=== PATIENT | male | born 1965 | race Caucasian/White ===

== ENCOUNTER 2017-12-27 14:13 | Emergency (ER) | payer MEDICARE, MEDICAID ==
[2017-12-27 14:33] VITALS: BP 127/89
--- NOTE | 2017-12-27 14:47 | UC ---
Shoulder Pain HPI - HPI Summary HPI Summary: Pt presents with left biceps/shoulder pain intermittently for the last week. He tells me that he has a history of bursitis and this feels the same. When it hurts, he takes ibuprofen with good relief. Denies numbness, tingling, SOB, chest pain, headache, dizziness, or trauma. - History of Current Complaint Chief Complaint: UCUpperExtremity Stated Complaint: SHOULDER PAIN Time Seen by Provider: 12/27/17 14:39 Hx Obtained From: Patient Onset/Duration: Gradual Onset Timing: Intermittent Episode Lasting Severity Initially: Mild Severity Currently: None Pain Intensity: 2 Pain Scale Used: 0-10 Numeric Character: Aching Alleviating Factor(s): Rest, OTC Meds Associated Signs And Symptoms: Positive: Negative - Allergies/Home Medications Allergies/Adverse Reactions: Allergies Allergy/AdvReac Type Severity Reaction Status Date / Time fluphenazine [From Prolixin] Allergy Rash Verified 12/27/17 14:20 Home Medications: Home Medications Lurasidone(*) [Latuda] 80 mg PO DAILY 12/27/17 [History Confirmed 12/27/17] Naltrexone TAB* 50 mg PO DAILY 12/27/17 [History Confirmed 12/27/17] PMH/Surg Hx/FS Hx/Imm Hx Endocrine History: Diabetes Psychological History: Anxiety, Depression, Schizophrenia Other History Of: Negative For: Anticoagulant Therapy - Surgical History Surgical History: Yes Surgery Procedure, Year, and Place: COLON POLYPS REMOVED - Family History Known Family History: Positive: None - pt denies problems with heart, lungs, or joints in relatives - Social History Lives: Alone Alcohol Use: Daily Alcohol Amount: 6 drinks/ day Substance Use Type: Marijuana Substance Use Comment - Amount & Last Used: 1/2 joint daily Smoking Status (MU): Never Smoked Tobacco - Immunization History Most Recent Influenza Vaccination: 2014 Most Recent Tetanus Shot: unknown Most Recent Pneumonia Vaccination: never Review of Systems Constitutional: Negative Skin: Negative Respiratory: Negative Cardiovascular: Negative Gastrointestinal: Negative Neurovascular: Negative Musculoskeletal: Other: - Left shoulder pain Neurological: Negative Psychological: Negative All Other Systems Reviewed And Are Negative: Yes Physical Exam - Summary Physical Exam Summary: GENERAL: NAD. WDWN. No pain distress. SKIN: No rashes, sores, ulcers, masses, lesions. NECK: Supple. Nontender. No lymphadenopathy. CHEST: CTAB. No r/r/w. No accessory muscle use. Breathing comfortably and in no distress. CV: RRR. Without m/r/g. Pulses intact radial and ulnar. MSK: Mild TTP over AC joint and bicipital groove. 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 No edema or obvious bony deformities. No snuffbox tenderness. FROM. Strength 5/5. No edema or obvious bony deformities. Positive yergason. Negative apleys, apprehension, empty can, alvarenga-tatiana, neer, and ramos. NEURO: Alert. Sensations intact C4-T1 left UE. PSYCH: Age appropriate behavior. Triage Information Reviewed: Yes Vital Signs: Initial Vital Signs Temp 98.1 F 12/27/17 14:27 Pulse 83 12/27/17 14:27 Resp 18 12/27/17 14:27 BP 127/89 12/27/17 14:27 Pulse Ox 99 12/27/17 14:27 Shoulder Course/Dx - Course Course Of Treatment: XR: IMPRESSION: Mild osteoarthritis. Small inferior acromial bone spur. Suspect biceps tendon strain vs arthritis. He is requesting a referral to ortho for potential cortisone injection. Advised RICE and continue with ibuprofen prn. - Differential Dx/Diagnosis Provider Diagnoses: Left shoulder strain Discharge - Sign-Out/Discharge Documenting (check all that apply): Discharge - Discharge Plan Condition: Stable Disposition: HOME Patient Education Materials: Shoulder Pain (ED) Referrals: Razia Arzate MD [Primary Care Provider] - Truman Yost MD [Medical Doctor] - As Soon As Possible Additional Instructions: If you develop a fever, shortness of breath, chest pain, new or worsening symptoms - please call your PCP or go to the ED. 1) Please call Orthopedics at the number below to schedule a follow up appointment regarding your shoulder pain. - Billing Disposition and Condition Condition: STABLE Disposition: HOME
--- NOTE | 2017-12-27 15:16 | RAD ---
Indication: 1 week LEFT shoulder pain without known injury. History of bursitis Comparison: April 16, 2014 Technique: Internal rotation AP, external rotation Grashey, scapular Y, axillary views LEFT shoulder Report: Normal acromioclavicular and glenohumeral joint alignment. Negative for fracture. Mild subchondral sclerosis and cystic change at the acromioclavicular joint with interval further joint space loss. Small inferolateral acromial bone spur without change. Mild glenohumeral joint space narrowing. Negative for significant glenohumeral joint osteophytosis. Negative for stigmata of calcific tendinopathy. Unremarkable soft tissue contours. IMPRESSION: Mild osteoarthritis. Small inferior acromial bone spur.
== END 2017-12-27 15:30 | disposition home or self-care (01) ==
LOC: UCEAST 14:13
DX: S46.912A Strain of unspecified muscle, fascia and tendon at shoulder and upper arm level, left arm, initial encounter (principal); X58.XXXA Exposure to other specified factors, initial encounter; Y93.9 Activity, unspecified; Y92.9 Unspecified place or not applicable; E11.9 Type 2 diabetes mellitus without complications; Z79.84 Long term (current) use of oral hypoglycemic drugs; F32.9 Major depressive disorder, single episode, unspecified; F41.9 Anxiety disorder, unspecified; F20.9 Schizophrenia, unspecified; Z88.8 Allergy status to other drugs, medicaments and biological substances
CPT/HCPCS: 99211; G0463

== ENCOUNTER 2019-01-22 09:29 | Emergency (ER) | payer MEDICARE, OTHER, MEDICAID ==
[2019-01-22 09:39] VITALS: BP 140/85
--- NOTE | 2019-01-22 10:47 | UC ---
Back Pain HPI - HPI Summary HPI Summary: 53 yo male presents with low back pain. He tells me that yesterday he was out for a walk and started developing some low back pain during his walk. He turned around and went back home and rested the remainder of yesterday. Today he woke up and his lower back was stiff and more painful than yesterday. He has not taken anything OTC for his symptoms. Pain is worse with going from a seated to standing position. Pain worse with bending/lifting. Feels better at rest seated. Denies specific injury, numbness, tingling, radiation of pain, dysuria, saddle anesthesia, or loss of bowel/bladder control. - History of Current Complaint Chief Complaint: UCBackPain Stated Complaint: BACK PAIN Time Seen by Provider: 01/22/19 10:46 Hx Obtained From: Patient Onset/Duration: Sudden Onset Timing: Constant Severity Initially: Mild Severity Currently: Moderate Pain Intensity: 7 Pain Scale Used: 0-10 Numeric - Allergies/Home Medications Allergies/Adverse Reactions: Allergies Allergy/AdvReac Type Severity Reaction Status Date / Time fluphenazine [From Prolixin] Allergy Rash Verified 01/22/19 09:39 PMH/Surg Hx/FS Hx/Imm Hx Psychological History: Anxiety, Depression, Bipolar Disorder, Schizophrenia Other History Of: Negative For: Anticoagulant Therapy - Surgical History Surgical History: Yes Surgery Procedure, Year, and Place: COLON POLYPS REMOVED - Family History Known Family History: Positive: None - pt denies problems with heart, lungs, or joints in relatives - Social History Lives: Alone Alcohol Use: Occasionally Alcohol Amount: 6 drinks/ day Substance Use Type: Marijuana Substance Use Comment - Amount & Last Used: 1/2 joint daily Smoking Status (MU): Never Smoked Tobacco - Immunization History Most Recent Influenza Vaccination: 2014 Most Recent Tetanus Shot: unknown Most Recent Pneumonia Vaccination: never Review of Systems All Other Systems Reviewed And Are Negative: Yes Constitutional: Positive: Negative Skin: Positive: Negative Respiratory: Positive: Negative Cardiovascular: Positive: Negative Gastrointestinal: Positive: Negative Genitourinary: Positive: Negative Neurovascular: Positive: Negative Musculoskeletal: Positive: Other: - Low back pain Neurological: Positive: Negative Psychological: Positive: Negative Physical Exam - Summary Physical Exam Summary: GENERAL: NAD. WDWN. No pain distress. SKIN: No rashes, sores, lesions, or open wounds. NECK: Supple. FROM. Nontender. CHEST: CTAB. No r/r/w. No accessory muscle use. Breathing comfortably and in no distress. CV: RRR. Without m/r/g. Pulses intact. Cap refill <2seconds MSK: TTP over lumbar paraspinal muscles. Pain with flexion and extension of spine. Positive SLR on RIGHT for low back pain without radiation. Strength 5/5 B /L LEs including dorsiflexion and plantar flexion. FROM B/L LEs. No edema. NEURO: Alert. Sensations intact B/L LEs L3-S1. Reflexes intact PSYCH: Age appropriate behavior. Triage Information Reviewed: Yes Vital Signs: Initial Vital Signs Temp 97.3 F 01/22/19 09:35 Pulse 72 01/22/19 09:35 Resp 16 01/22/19 09:35 BP 140/85 01/22/19 09:35 Pulse Ox 100 01/22/19 09:35 Vital Signs Reviewed: Yes Back Pain Course/Dx - Course Course Of Treatment: Suspect muscle strain/sciatica. Pt says he has had this in the past and was prescribed prednisone with great relief. Will rx for this again today. - Differential Dx/Diagnosis Provider Diagnosis: Sciatica Discharge - Sign-Out/Discharge Documenting (check all that apply): Patient Departure All imaging exams completed and their final reports reviewed: No Studies - Discharge Plan Condition: Stable Disposition: HOME Prescriptions: predniSONE TAB* [Deltasone 20 MG TAB*] 40 mg PO DAILY #12 tab Patient Education Materials: Sciatica (ED), Lower Back Exercises (ED) Referrals: No Primary Care Phys,NOPCP [Primary Care Provider] - Additional Instructions: If you develop a fever, shortness of breath, chest pain, new or worsening symptoms - please call your PCP or go to the ED. Your blood pressure was high at todays visit. Please see your primary provider within 4 weeks for recheck and re-evaluation. Rest and apply heat to your area of pain. May take tylenol as directed in addition to the prednisone for pain relief - Billing Disposition and Condition Condition: STABLE Disposition: Home
== END 2019-01-22 11:20 | disposition home or self-care (01) ==
LOC: UCEAST 09:29
DX: M54.41 Lumbago with sciatica, right side (principal); F41.9 Anxiety disorder, unspecified; F31.9 Bipolar disorder, unspecified; F20.9 Schizophrenia, unspecified; Z88.8 Allergy status to other drugs, medicaments and biological substances
CPT/HCPCS: 99212; G0463

== ENCOUNTER 2019-02-04 10:33 | Emergency (ER) | payer MEDICARE, MEDICAID ==
[2019-02-04 11:07] VITALS: BP 140/80
--- NOTE | 2019-02-04 12:14 | UC ---
Back Pain HPI - HPI Summary HPI Summary: PATIENT DEVELOPED LOW BACK PAIN ABOUT 2 WEEKS AGO WHILE OUT FOR A WALK. NO DISCRETE TRAUMA OR INJURY. CAME HERE TO THE AND WAS TREATED WITH PREDNISONE. STATES THE SYMPTOMS HAVE IMPROVED GREATLY BUT HE STILL HAS ABOUT 20 % OF HIS PAIN. NO NUMBNESS OR TINGLING OR NEW INJURY. DENIES ANY SADDLE ANESTHESIA. NO LOSS OF BOWEL OR BLADDER CONTROL. - History of Current Complaint Chief Complaint: UCBackPain Stated Complaint: BACK PAIN Time Seen by Provider: 02/04/19 11:42 Hx Obtained From: Patient Onset/Duration: Gradual Onset, Lasting Weeks, Still Present - BUT MUCH BETTER Timing: Constant Severity Initially: Moderate Severity Currently: Mild Pain Intensity: 1 Pain Scale Used: 0-10 Numeric Character: Sharp, Spasmodic Aggravating Factor(s): Movement, Bending Associated Signs And Symptoms: Negative: Swelling, Redness, Bruising, Weakness, Numbness, Tingling, Bladder Incontinence, Bowel Incontinence - Allergies/Home Medications Allergies/Adverse Reactions: Allergies Allergy/AdvReac Type Severity Reaction Status Date / Time fluphenazine [From Prolixin] Allergy Rash Verified 01/22/19 09:39 PMH/Surg Hx/FS Hx/Imm Hx Other Psychological History: SCHIZOAFFECTIVE D/O Other History Of: Negative For: Anticoagulant Therapy - Surgical History Surgical History: Yes Surgery Procedure, Year, and Place: COLON POLYPS REMOVED - Family History Known Family History: Positive: None - pt denies problems with heart, lungs, or joints in relatives - Social History Alcohol Use: Occasionally Alcohol Amount: 6 drinks/ day Substance Use Type: Marijuana Substance Use Comment - Amount & Last Used: 1/2 joint daily Smoking Status (MU): Never Smoked Tobacco - Immunization History Most Recent Influenza Vaccination: 2014 Most Recent Tetanus Shot: unknown Most Recent Pneumonia Vaccination: never Review of Systems All Other Systems Reviewed And Are Negative: Yes Constitutional: Positive: Negative Skin: Positive: Negative Respiratory: Positive: Negative Cardiovascular: Positive: Negative Gastrointestinal: Positive: Negative Physical Exam Triage Information Reviewed: Yes Appearance: Well-Appearing, No Pain Distress, Well-Nourished Vital Signs: Initial Vital Signs Temp 98.2 F 02/04/19 11:01 Pulse 65 02/04/19 11:01 Resp 18 02/04/19 11:01 BP 140/80 02/04/19 11:01 Pulse Ox 98 02/04/19 11:01 Vital Signs Reviewed: Yes Eyes: Positive: Conjunctiva Clear ENT: Positive: Hearing grossly normal Neck: Positive: Supple Respiratory: Positive: No respiratory distress, No accessory muscle use Cardiovascular: Positive: Pulses Normal Abdomen Description: Positive: Soft Musculoskeletal: Positive: No Edema, ROM Limited @ - BACK, Other: - NOT TENDER OVER BONY PROMINENCES OR MUSCLES OF LOW BACK Neurological: Positive: Alert, Muscle Tone Normal Psychological: Positive: Age Appropriate Behavior Skin: Negative: Rashes Back Pain Course/Dx - Course Course Of Treatment: PATIENT'S SYMPTOMS HAVE IMPROVED SINCE ONSET 2 WEEKS AGO. HE CAME IN FOR REEVALUATION STATING THAT HE WAS NOT ALL THE WAY BETTER. I ADVISED THE PATIENT THAT HIS PAIN WOULD LIKELY CONTINUE TO IMPROVE OVER THE NEXT SEVERAL WEEKS HOWEVER HE WOULD LIKE SOME ADDITIONAL MEDICATION. WILL TRY A MUSCLE RELAXER. DISCUSSED WITH PATIENT IN DETAIL THE RISKS OF LOWERED SEIZURE THRESHOLD WITH FLEXERIL AND BUPROPION. ALSO DISCUSSED ADDITIVE SEDATING EFFECTS OF FLEXERIL WITH HIS LATUDA. PATIENT WISHES TO TRY A MUSCLE RELAXER AND ACCEPTS THESE RISKS. HE WILL FOLLOW-UP WITH [facility]. PHYSICAL THERAPY REFERRAL ALSO PROVIDED FOR PATIENT TO USE IF DESIRED. - Differential Dx/Diagnosis Provider Diagnosis: Acute low back pain Discharge - Sign-Out/Discharge Documenting (check all that apply): Patient Departure All imaging exams completed and their final reports reviewed: No Studies - Discharge Plan Condition: Stable Disposition: HOME Prescriptions: Cyclobenzaprine TAB* [Flexeril TAB*] 10 mg PO BID PRN #20 tab PRN Reason: Pain Patient Education Materials: Low Back Strain (ED) Referrals: [facility] [Outside] - 1 Week Additional Instructions: YOUR BACK PAIN SHOULD CONTINUE TO IMPROVE OVER THE NEXT FEW WEEKS WITH CONTINUED REST, STRETCHING, HEAT AND ANTI-INFLAMMATORY MEDICATION. WILL TRY A MUSCLE RELAXER TO SEE IF THIS HELPS WITH YOUR SYMPTOMS. WE DISCUSSED IT CAN INTERACT WITH BOTH YOUR LATUDA AND YOUR BUPROPION. IT CAN BE OVERLY SEDATING AND LOWER THE SEIZURE THRESHOLD. BE VIGILANT OF YOUR SYMPTOMS. PHYSICAL THERAPY REFERRAL PROVIDED TODAY. YOU USE IF YOUR SYMPTOMS DO NOT CONTINUE TO IMPROVE OVER THE NEXT FEW WEEKS. BE SURE TO GO THROUGH SLOW RANGE OF MOTION AND STRETCHING EXERCISES DAILY YOU ARE ABLE TO PREVENT STIFFENING UP AND MAKING THE DISCOMFORT WORSE. CALL THE NUMBER BELOW FOR ASSISTANCE IN ESTABLISHING WITH A PCP An additional resource available to assist in finding the appropriate physician for your health care needs is [facility] ([place]). You may contact them by calling [phone]. - Billing Disposition and Condition Condition: STABLE Disposition: Home
== END 2019-02-04 12:14 | disposition home or self-care (01) ==
LOC: UCEAST 10:33
DX: M54.5 Low back pain (principal); F25.9 Schizoaffective disorder, unspecified; Z88.8 Allergy status to other drugs, medicaments and biological substances
CPT/HCPCS: 99212; G0463

== ENCOUNTER 2019-03-23 12:39 | Observation (INO) | payer MEDICARE, MEDICAID ==
[2019-03-23] MEDS ORDERED: Thiamine IV* 100 MG, Folic Acid IV* 1 MG, Multiple Vitamin IV ADULT* 10 ML in NS 0.9% 1... IV ONE (13:35)
[2019-03-23 13:55] LABS: ABS Lymphocytes 0.5 10^3/ul (1.0-4.8); ABS Monocytes 0.5 10^3/ul (0-0.8); ABS Neutrophils 3.9 10^3/ul (1.5-7.7); Eosinophil % 0.1 %; Hematocrit 38 % (42-52); Hemoglobin 12.9 g/dL (14.0-18.0); Lymphocyte % 9.7 %; Mean Corpuscular HGB Conc 34 g/dL (31-36); Mean Corpuscular Hemoglobin 32 pg (27-31); Mean Corpuscular Volume 94 fL (80-94); Mean Platelet Volume 8.2 fL (7.4-10.4); Platelet Count 137 10^3/uL (150-450); Red Blood Count 3.98 10^6 /uL (4.18-5.48); Red Cell Distribution Width 15 % (10-15); White Blood Count 4.8 10^3/uL (3.5-10.8)
[2019-03-23 14:01] LABS: INR 0.94 (0.82-1.09)
[2019-03-23 14:12] LABS: Albumin 4.4 g/dL (3.2-5.2); Albumin/Globulin Ratio 1.8 (1-3); BUN/Creatinine Ratio 13.3 (8-20); C Reactive Protein 13.02 mg/L (<8.01); Calcium 9.7 mg/dL (8.6-10.3); EGFR African American 117.7 (>60); EGFR Non-African American 97.3 (>60); Globulin 2.4 g/dL (2-4); Potassium 3.8 mmol/L (3.5-5.0); Total Protein 6.8 g/dL (6.4-8.9)
[2019-03-23 14:43] LABS: Urine Appearance Clear; Urine Bacteria Absent (Absent); Urine Bilirubin Negative (Negative); Urine Blood 1+ (Negative); Urine Color Amber; Urine Glucose Negative (Negative); Urine Ketones 2+ (Negative); Urine Nitrite Negative (Negative); Urine Protein 1+(30 mg/dL) (Negative); Urine Red Blood Cell Trace(0-2/hpf) (Absent); Urine Specific Gravity 1.023 (1.010-1.030); Urine Squamous Epithelial Cell Present (Absent); Urine Urobilinogen Positive (Negative); Urine White Blood Cell Absent (Absent)
[2019-03-23 14:53] LABS: Urine Benzodiazepine Screen None Detected (None Detect); Urine Opiates Screen None Detected (None Detect)
[2019-03-23] MEDS ORDERED: Lorazepam PYXIS KEY PRN ×2 (15:36→16:50)
[2019-03-23] MEDS ORDERED: LORazepam INJ* 2 MG/ML 1 ML VIAL IV PUSH ONE (15:36)
[2019-03-23] MEDS ORDERED: LORazepam INJ* 2 MG/ML 1 ML VIAL ONE (15:37)
--- NOTE | 2019-03-23 16:45 | ED ---
Substance Abuse/Use - HPI Summary HPI Summary: Patient is a 53-year-old who called male presenting to the ED with request for alcohol detox. He states he drinks approximately 1 L vodka or whiskey daily. This began approximately 1 month ago. Prior to this, he states he still drink daily, however less. He states he has never had a seizure. Patient does endorse psych hx and states he has schizophrenia. Denies SI/HI. States he is on buproprion and Latuda - is prescribed this and fills these scripts but does not take them. He is requesting a his mental health counselor but does not feel he needs to be evaluated. Denies any drug use. - History Of Current Complaint Chief Complaint: EDSubstanceAbuse Stated Complaint: DETOX FROM ALCOHOL PER EMS Time Seen by Provider: 03/23/19 12:47 Hx Obtained From: Patient Onset/Duration of Drug/ETOH Abuse: Hours Ingestion History: Type/Name Of Drug Overdose Characteristics: Oral Timing Of Abuse: Daily Severity Initially: Severe Severity Currently: Severe Aggravating Factor(s): Nothing Alleviating Factor(s): Nothing Associated Signs And Symptoms: Negative - Allergies/Home Medications Allergies/Adverse Reactions: Allergies Allergy/AdvReac Type Severity Reaction Status Date / Time fluphenazine [From Prolixin] Allergy Rash Verified 01/22/19 09:39 Home Medications: Home Medications Acamprosate (NF) [Campral (NF)] 666 mg PO DAILY 03/23/19 [History Confirmed ] Escitalopram * [Lexapro 10 mg (NF)] 10 mg PO DAILY 03/23/19 [History Confirmed 03/23/19] PMH/Surg Hx/FS Hx/Imm Hx Previously Healthy: Yes Endocrine/Hematology History: Denies: Hx Anticoagulant Therapy, Hx Diabetes, Hx Thyroid Disease Cardiovascular History: Denies: Hx Hypertension Respiratory History: Denies: Hx Asthma, Hx Chronic Obstructive Pulmonary Disease (COPD) GI History: Denies: Hx Ulcer Musculoskeletal History: Reports: Hx Tendonitis - Left shoulder Psychiatric History: Reports: Hx Inpatient Treatment, Hx Community Mental Health Tx, Hx Schizophrenia, Hx Bipolar Disorder, Hx Substance Abuse Denies: Hx Eating Disorder, Hx of Violent Episodes Against Others - Surgical History Surgery Procedure, Year, and Place: COLON POLYPS REMOVED - Immunization History Hx Pertussis Vaccination: No Immunizations Up to Date: Yes Infectious Disease History: No Infectious Disease History: Reports: Hx Shingles Denies: Hx Hepatitis, Hx Human Immunodeficiency Virus (HIV), Hx of Known/ Suspected MRSA, Hx Tuberculosis, Hx Known/Suspected VRSA, Traveled Outside the [place] in Last 30 Days - Family History Known Family History: Positive: None - pt denies problems with heart, lungs, or joints in relatives - Social History Occupation: Employed Full-time Lives: With Family Alcohol Use: Daily Alcohol Amount: 1L whiskey a day Hx Substance Use: No Substance Use Type: Reports: Marijuana Substance Use Comment - Amount & Last Used: 1/2 joint daily Hx Tobacco Use: No Smoking Status (MU): Never Smoked Tobacco Review of Systems Negative: Fever, Chills, Fatigue, Skin Diaphoresis Negative: Palpitations, Chest Pain Negative: Shortness Of Breath, Cough Genitourinary: Negative Positive: no symptoms reported, see HPI Negative: Arthralgia, Myalgia Skin: Negative All Other Systems Reviewed And Are Negative: Yes Physical Exam Triage Information Reviewed: Yes Vital Signs On Initial Exam: Initial Vitals Temp Pulse Resp BP Pulse Ox 99.1 F 84 18 160/97 99 03/23/19 12:49 03/23/19 12:49 03/23/19 12:49 03/23/19 12:49 03/23/19 12:49 Vital Signs Reviewed: Yes Appearance: Positive: No Pain Distress Skin: Positive: Other - erythatmous Head/Face: Positive: Normal Head/Face Inspection Eyes: Positive: Other: - scleral icterus Neck: Positive: No Lymphadenopathy Respiratory/Lung Sounds: Positive: Clear to Auscultation, Breath Sounds Present Cardiovascular: Positive: RRR Musculoskeletal: Positive: Strength/ROM Intact Neurological: Positive: Sensory/Motor Intact, Alert, Oriented to Person Place, Time, CN Intact II-III, Reflexes Intact, Slurred Speech Psychiatric: Positive: Other - patient appears slightly anxious without agitation AVPU Assessment: Alert - Miguel Coma Scale Best Eye Response: 4 - Spontaneous Best Motor Response: 6 - Obeys Commands Best Verbal Response: 5 - Oriented Coma Scale Total: 15 Diagnostics - Vital Signs Vital Signs Temp Pulse Resp BP Pulse Ox 03/23/19 15:40 16 03/23/19 15:14 99.6 F 90 20 121/70 100 03/23/19 14:28 99.4 F 86 13 141/91 100 03/23/19 14:00 77 20 144/83 100 03/23/19 12:49 99.1 F 84 18 160/97 99 - Laboratory Lab Results: Lab Results 03/23/19 03/23/19 03/23/19 Range/Units 13:38 13:38 13:38 WBC 4.8 (3.5-10.8) 10^3/uL RBC 3.98 L (4.18-5.48) 10^6 /uL Hgb 12.9 L (14.0-18.0) g/dL Hct 38 L (42-52) % MCV 94 (80-94) fL MCH 32 H (27-31) pg MCHC 34 (31-36) g/dL RDW 15 (10-15) % Plt Count 137 L (150-450) 10^3/uL MPV 8.2 (7.4-10.4) fL Neut % (Auto) 79.8 % Lymph % (Auto) 9.7 % [place] % (Auto) 9.8 % Eos % (Auto) 0.1 % Baso % (Auto) 0.6 % Absolute Neuts (auto) 3.9 (1.5-7.7) 10^3/ul Absolute Lymphs (auto) 0.5 L (1.0-4.8) 10^3/ul Absolute Monos (auto) 0.5 (0-0.8) 10^3/ul Absolute Eos (auto) 0.0 (0-0.6) 10^3/ul Absolute Basos (auto) 0.0 (0-0.2) 10^3/ul Absolute Nucleated RBC 0.0 10^3/ul Nucleated RBC % 0.0 INR (Anticoag Therapy) 0.94 (0.82-1.09) Sodium (135-145) mmol/L Potassium (3.5-5.0) mmol/L Chloride (101-111) mmol/L Carbon Dioxide (22-32) mmol/L Anion Gap (2-11) mmol/L BUN (6-24) mg/dL Creatinine (0.67-1.17) mg/dL Est GFR ( Amer) (>60) Est GFR (Non-Af Amer) (>60) BUN/Creatinine Ratio (8-20) Glucose (70-100) mg/dL Calcium (8.6-10.3) mg/dL Total Bilirubin (0.2-1.0) mg/dL GGT (9-64.0) U/L AST (13-39) U/L ALT (7-52) U/L Alkaline Phosphatase (34-104) U/L Ammonia (16-53) mcmol/L Total Creatine Kinase (10-223) U/L C-Reactive Protein (<8.01) mg/L Total Protein (6.4-8.9) g/dL Albumin (3.2-5.2) g/dL Globulin (2-4) g/dL Albumin/Globulin Ratio (1-3) Urine Color Urine Appearance Urine pH (5-9) Ur Specific [place] (1.010-1.030) Urine Protein (Negative) Urine Ketones (Negative) Urine Blood (Negative) Urine Nitrate (Negative) Urine Bilirubin (Negative) Urine Urobilinogen (Negative) Ur Leukocyte Esterase (Negative) Urine WBC (Auto) (Absent) Urine RBC (Auto) (Absent) Ur Squamous Epith Cells (Absent) Urine Bacteria (Absent) Urine Glucose (Negative) Urine Opiates Screen (None Detect) Ur Barbiturates Screen (None Detect) Ur Phencyclidine Scrn (None Detect) Ur Amphetamines Screen (None Detect) U Benzodiazepines Scrn (None Detect) Urine Cocaine Screen (None Detect) U Cannabinoids Screen (None Detect) Serum Alcohol < 10 (<10) mg/dL 03/23/19 03/23/19 03/23/19 Range/Units 13:38 14:10 14:10 WBC (3.5-10.8) 10^3/uL RBC (4.18-5.48) 10^6 /uL Hgb (14.0-18.0) g/dL Hct (42-52) % MCV (80-94) fL MCH (27-31) pg MCHC (31-36) g/dL RDW (10-15) % Plt Count (150-450) 10^3/uL MPV (7.4-10.4) fL Neut % (Auto) % Lymph % (Auto) % [place] % (Auto) % Eos % (Auto) % Baso % (Auto) % Absolute Neuts (auto) (1.5-7.7) 10^3/ul Absolute Lymphs (auto) (1.0-4.8) 10^3/ul Absolute Monos (auto) (0-0.8) 10^3/ul Absolute Eos (auto) (0-0.6) 10^3/ul Absolute Basos (auto) (0-0.2) 10^3/ul Absolute Nucleated RBC 10^3/ul Nucleated RBC % INR (Anticoag Therapy) (0.82-1.09) Sodium 136 (135-145) mmol/L Potassium 3.8 (3.5-5.0) mmol/L Chloride 96 L (101-111) mmol/L Carbon Dioxide 24 (22-32) mmol/L Anion Gap 16 H (2-11) mmol/L BUN 11 (6-24) mg/dL Creatinine 0.83 (0.67-1.17) mg/dL Est GFR ( Amer) 117.7 (>60) Est GFR (Non-Af Amer) 97.3 (>60) BUN/Creatinine Ratio 13.3 (8-20) Glucose 95 (70-100) mg/dL Calcium 9.7 (8.6-10.3) mg/dL Total Bilirubin 2.00 H (0.2-1.0) mg/dL GGT (9-64.0) U/L AST 278 H (13-39) U/L ALT 236 H (7-52) U/L Alkaline Phosphatase 71 (34-104) U/L Ammonia (16-53) mcmol/L Total Creatine Kinase 692 H (10-223) U/L C-Reactive Protein 13.02 H (<8.01) mg/L Total Protein 6.8 (6.4-8.9) g/dL Albumin 4.4 (3.2-5.2) g/dL Globulin 2.4 (2-4) g/dL Albumin/Globulin Ratio 1.8 (1-3) Urine Color Mai Urine Appearance Clear Urine pH 6.0 (5-9) Ur Specific [place] 1.023 (1.010-1.030) Urine Protein 1+(30 mg/dl) A (Negative) Urine Ketones 2+ A (Negative) Urine Blood 1+ A (Negative) Urine Nitrate Negative (Negative) Urine Bilirubin Negative (Negative) Urine Urobilinogen Positive A (Negative) Ur Leukocyte Esterase Negative (Negative) Urine WBC (Auto) Absent (Absent) Urine RBC (Auto) Trace(0-2/hpf) (Absent) Ur Squamous Epith Cells Present A (Absent) Urine Bacteria Absent (Absent) Urine Glucose Negative (Negative) Urine Opiates Screen None detected (None Detect) Ur Barbiturates Screen None detected (None Detect) Ur Phencyclidine Scrn None detected (None Detect) Ur Amphetamines Screen None detected (None Detect) U Benzodiazepines Scrn None detected (None Detect) Urine Cocaine Screen None detected (None Detect) U Cannabinoids Screen Presumptive positive A (None Detect) Serum Alcohol (<10) mg/dL 03/23/19 03/23/19 Range/Units 14:31 14:31 WBC (3.5-10.8) 10^3/uL RBC (4.18-5.48) 10^6 /uL Hgb (14.0-18.0) g/dL Hct (42-52) % MCV (80-94) fL MCH (27-31) pg MCHC (31-36) g/dL RDW (10-15) % Plt Count (150-450) 10^3/uL MPV (7.4-10.4) fL Neut % (Auto) % Lymph % (Auto) % [place] % (Auto) % Eos % (Auto) % Baso % (Auto) % Absolute Neuts (auto) (1.5-7.7) 10^3/ul Absolute Lymphs (auto) (1.0-4.8) 10^3/ul Absolute Monos (auto) (0-0.8) 10^3/ul Absolute Eos (auto) (0-0.6) 10^3/ul Absolute Basos (auto) (0-0.2) 10^3/ul Absolute Nucleated RBC 10^3/ul Nucleated RBC % INR (Anticoag Therapy) (0.82-1.09) Sodium (135-145) mmol/L Potassium (3.5-5.0) mmol/L Chloride (101-111) mmol/L Carbon Dioxide (22-32) mmol/L Anion Gap (2-11) mmol/L BUN (6-24) mg/dL Creatinine (0.67-1.17) mg/dL Est GFR ( Amer) (>60) Est GFR (Non-Af Amer) (>60) BUN/Creatinine Ratio (8-20) Glucose (70-100) mg/dL Calcium (8.6-10.3) mg/dL Total Bilirubin (0.2-1.0) mg/dL GGT 332 H (9-64.0) U/L AST (13-39) U/L ALT (7-52) U/L Alkaline Phosphatase (34-104) U/L Ammonia 45 (16-53) mcmol/L Total Creatine Kinase (10-223) U/L C-Reactive Protein (<8.01) mg/L Total Protein (6.4-8.9) g/dL Albumin (3.2-5.2) g/dL Globulin (2-4) g/dL Albumin/Globulin Ratio (1-3) Urine Color Urine Appearance Urine pH (5-9) Ur Specific [place] (1.010-1.030) Urine Protein (Negative) Urine Ketones (Negative) Urine Blood (Negative) Urine Nitrate (Negative) Urine Bilirubin (Negative) Urine Urobilinogen (Negative) Ur Leukocyte Esterase (Negative) Urine WBC (Auto) (Absent) Urine RBC (Auto) (Absent) Ur Squamous Epith Cells (Absent) Urine Bacteria (Absent) Urine Glucose (Negative) Urine Opiates Screen (None Detect) Ur Barbiturates Screen (None Detect) Ur Phencyclidine Scrn (None Detect) Ur Amphetamines Screen (None Detect) U Benzodiazepines Scrn (None Detect) Urine Cocaine Screen (None Detect) U Cannabinoids Screen (None Detect) Serum Alcohol (<10) mg/dL Result Diagrams: 03/23/19 13:38 03/23/19 13:38 Lab Statement: Any lab studies that have been ordered have been reviewed, and results considered in the medical decision making process. Re-Evaluation - Re-Evaluation First Eval Change: Unchanged - re-evaluation shows no changes - continues to have tremor, awaiting alcohol level Second Eval Change: Worse - seizure - patient moved to room 14 and given 2mg ativan wam protocol intitiated Third Eval Change: Improved - improving - still post-ictal Course/Dx - Course Course Of Treatment: During the course of treatment, the patient is evaluated for alcohol intoxication. Patient states he last drink this morning and drink 1 L vodka. He arrives he would like alcohol detox as he does not feel well. Temp is 99.1, heart rate 84, respirations 18, 160/97. He has bilateral tremors at rest, but states this is normal for him whether he drinks or not, however they are worse when he does not drink. He states he has been several hours since his last drink but he does not recall when. Stating, sometime this morning. States he has never had a seizure and never had Ativan or other medications to help him through withdrawal. After approximately 3 hours in the ED, patient continues to appear well, with bilateral tremors and is talking with friends. CIWA score on arrival is 8. While talking with a friend, patient begins to seize. Friend witnessed, nurse immediately at bedisde and provider followed. 2mg ativan given and patient is rolled to his side. He was tx to room 14 and wam and monitoring provided. Discussed with Dr. Watts who accepts to ICU for further evalution and tx for alcohol withdrawal. Bleeding from the mouth s/p seizure but no evidence of a laceration on exam. Patient remains confused and post-ictal. - Diagnoses Differential Diagnosis/HQI/PQRI: Positive: Acute Psychosis, Alcohol Withdrawal, Anxiety, Delirium Tremens, Drug Withdrawal, Metabolic Disorder Provider Diagnoses: Alcohol withdrawal - Physician Notifications Discussed Care Of Patient With: Steve Watts Instructed by Provider To: Admit As Inpatient - Critical Care Time Critical Care Time: 30-74 min Discharge - Sign-Out/Discharge Documenting (check all that apply): Patient Departure Patient Received Moderate/Deep Sedation with Procedure: No - Discharge Plan Condition: Fair Disposition: ADMITTED TO [facility] Referrals: No Primary Care Phys,NOPCP [Primary Care Provider] - - Billing Disposition and Condition Condition: FAIR Disposition: Admitted to [facility]
[2019-03-23] MEDS ORDERED: LORazepam INJ* 2 MG/ML 1 ML VIAL IV PUSH PRN (16:50)
[2019-03-23] MEDS ORDERED: Diazepam TAB(*) 5 MG PO ONE ×2 (16:50→17:48)
[2019-03-23] MEDS ORDERED: Albuterol 2.5 MG/3 ML NEB.SOL* (0.083%) INH PRN (17:03)
[2019-03-23 17:08] LABS: Hepatitis B Surface Antigen Negative (Negative)
--- NOTE | 2019-03-23 17:16 | HP ---
H&P (Free Text) History and Physical: History and Physical Note -- Critical Care Limitations in history/physical: post ictal from seizure HPI: 53y M w/pmhx of Schizoaffective disorder, bipolar disorder, substance abuse with alcohol?, h/o lower GI bleed 2016 with clipping; comes to ER because he stated he needed detoxing. Patient was in outpatient area and started to have a seizure, brought into the main ER, given Ativan with cessation of seizure. Vitals remained intact. Currently patient awake now, answering questions, slight confusion, moving all ext, not restless or agitated. No distress noted. He denies cp/sob/n/v/abd pain, no diarrhea, no fever/chills. States that he drinks a bottle a day, last drink was yesterday afternoon. ER told me he stated to them his last drink was 1 hour prior to ER arrival. Alcohol level zero on lab work. He is moving all extremities, no tremulousness noted, speaking in straight sentences. denies any previous seizure history. no history of DM/thyroid issues, told to take metformin in psych clinic. ROS: negative except for pertinent positives mentioned above. PMHx: Schizoaffective disorder, bipolar disorder, substance abuse with alcohol? , h/o lower GI bleed 2016 with clipping PSHx: colonoscopy 2016 Family History: noncontributory Social History: Alcohol-yes 1 bottle/day, Smoking-old history states he quit 10+ yrs back; Drug use-denies Allergies: Allergies Allergy/AdvReac Type Severity Reaction Status Date / Time fluphenazine [From Prolixin] Allergy Rash Verified 01/22/19 09:39 Home Medications: BuPROPion XL* [Bupropion XL*] 300 mg PO DAILY 04/30/16 [History Confirmed ] metFORMIN* [Glucophage 1000 MG TAB *] 1,000 mg PO BID 04/30/16 [History Confirmed 03/23/19] Liothyronine TAB* [Cytomel TAB*] 25 mcg PO DAILY 05/01/16 [History Confirmed ] Lurasidone(*) [Latuda] 80 mg PO DAILY 12/27/17 [History Confirmed 03/23/19] Naltrexone TAB* 50 mg PO DAILY 12/27/17 [History Confirmed 03/23/19] Cyclobenzaprine TAB* [Flexeril TAB*] 10 mg PO BID PRN #20 tab 02/04/19 [Rx Confirmed 03/23/19] Acamprosate (NF) [Campral (NF)] 666 mg PO DAILY 03/23/19 [History Confirmed ] Escitalopram * [Lexapro 10 mg (NF)] 10 mg PO DAILY 03/23/19 [History Confirmed 03/23/19] Tele: NSR Vitals: Vital Signs Temp 99.6 F 03/23/19 15:14 Pulse 90 03/23/19 15:14 Resp 16 03/23/19 15:40 BP 121/70 03/23/19 15:14 Pulse Ox 100 03/23/19 15:14 Intake & Output 03/22/19 03/23/19 03/23/19 18:59 06:59 18:59 Weight 95.254 kg O2/Vent: NC 3 L, sat 98% Infusions: NS (banana bag) Current Medications: Thiamine HCl 100 mg/ Folic Acid 1 mg/ Multivitamins 10 ml / Sodium Chloride 1, 011.2 mls @ 250 mls/hr IV ED ONCE ONE Stop: 03/23/19 17:37 Last Admin: 03/23/19 14:45 Dose: 250 mls/hr Lorazepam (Ativan Inj*) 1 mg IV PUSH Q1H PRN PRN Reason: restlessness Miscellaneous (Ativan Pyxis Saldivar) 1 ea N/A .ATIVAN IV SALDIVAR PRN PRN Reason: PYXIS SALDIVAR Physical Exam: Constitutional: awake, alert, no distress, no diaphoresis Head: normocephalic, atraumatic Eyes: no pallor, no icterus ENT: moist mucous membranes Neck: soft, supple, no jvd, no stridor CVS: normal rate, regular, no murmur Resp: bilateral air entry, no rhales, no wheeze, no rhonchi, no acc muscle use Abdomen/GI: soft, nontender, nondistended, BS+ Ext/Msk: warm, pulses+, no edema Skin: intact, warm Neuro: awake, alert, orientedx3, moving all extremities Labs: Laboratory Results - last 24 hr 03/23/19 03/23/19 03/23/19 13:38 13:38 13:38 WBC 4.8 RBC 3.98 L Hgb 12.9 L Hct 38 L MCV 94 MCH 32 H MCHC 34 RDW 15 Plt Count 137 L MPV 8.2 Neut % (Auto) 79.8 Lymph % (Auto) 9.7 [place] % (Auto) 9.8 Eos % (Auto) 0.1 Baso % (Auto) 0.6 Absolute Neuts (auto) 3.9 Absolute Lymphs (auto) 0.5 L Absolute Monos (auto) 0.5 Absolute Eos (auto) 0.0 Absolute Basos (auto) 0.0 Absolute Nucleated RBC 0.0 Nucleated RBC % 0.0 INR (Anticoag Therapy) 0.94 Sodium Potassium Chloride Carbon Dioxide Anion Gap BUN Creatinine Est GFR ( Amer) Est GFR (Non-Af Amer) BUN/Creatinine Ratio Glucose Calcium Total Bilirubin GGT AST ALT Alkaline Phosphatase Ammonia Total Creatine Kinase C-Reactive Protein Total Protein Albumin Globulin Albumin/Globulin Ratio Urine Color Urine Appearance Urine pH Ur Specific [place] Urine Protein Urine Ketones Urine Blood Urine Nitrate Urine Bilirubin Urine Urobilinogen Ur Leukocyte Esterase Urine WBC (Auto) Urine RBC (Auto) Ur Squamous Epith Cells Urine Bacteria Urine Glucose Urine Opiates Screen Ur Barbiturates Screen Ur Phencyclidine Scrn Ur Amphetamines Screen U Benzodiazepines Scrn Urine Cocaine Screen U Cannabinoids Screen Serum Alcohol < 10 03/23/19 03/23/19 03/23/19 13:38 14:10 14:10 WBC RBC Hgb Hct MCV MCH MCHC RDW Plt Count MPV Neut % (Auto) Lymph % (Auto) [place] % (Auto) Eos % (Auto) Baso % (Auto) Absolute Neuts (auto) Absolute Lymphs (auto) Absolute Monos (auto) Absolute Eos (auto) Absolute Basos (auto) Absolute Nucleated RBC Nucleated RBC % INR (Anticoag Therapy) Sodium 136 Potassium 3.8 Chloride 96 L Carbon Dioxide 24 Anion Gap 16 H BUN 11 Creatinine 0.83 Est GFR ( Amer) 117.7 Est GFR (Non-Af Amer) 97.3 BUN/Creatinine Ratio 13.3 Glucose 95 Calcium 9.7 Total Bilirubin 2.00 H GGT AST 278 H ALT 236 H Alkaline Phosphatase 71 Ammonia Total Creatine Kinase 692 H C-Reactive Protein 13.02 H Total Protein 6.8 Albumin 4.4 Globulin 2.4 Albumin/Globulin Ratio 1.8 Urine Color Mai Urine Appearance Clear Urine pH 6.0 Ur Specific [place] 1.023 Urine Protein 1+(30 mg/dl) A Urine Ketones 2+ A Urine Blood 1+ A Urine Nitrate Negative Urine Bilirubin Negative Urine Urobilinogen Positive A Ur Leukocyte Esterase Negative Urine WBC (Auto) Absent Urine RBC (Auto) Trace(0-2/hpf) Ur Squamous Epith Cells Present A Urine Bacteria Absent Urine Glucose Negative Urine Opiates Screen None detected Ur Barbiturates Screen None detected Ur Phencyclidine Scrn None detected Ur Amphetamines Screen None detected U Benzodiazepines Scrn None detected Urine Cocaine Screen None detected U Cannabinoids Screen Presumptive positive A Serum Alcohol 03/23/19 03/23/19 14:31 14:31 WBC RBC Hgb Hct MCV MCH MCHC RDW Plt Count MPV Neut % (Auto) Lymph % (Auto) [place] % (Auto) Eos % (Auto) Baso % (Auto) Absolute Neuts (auto) Absolute Lymphs (auto) Absolute Monos (auto) Absolute Eos (auto) Absolute Basos (auto) Absolute Nucleated RBC Nucleated RBC % INR (Anticoag Therapy) Sodium Potassium Chloride Carbon Dioxide Anion Gap BUN Creatinine Est GFR ( Amer) Est GFR (Non-Af Amer) BUN/Creatinine Ratio Glucose Calcium Total Bilirubin GGT 332 H AST ALT Alkaline Phosphatase Ammonia 45 Total Creatine Kinase C-Reactive Protein Total Protein Albumin Globulin Albumin/Globulin Ratio Urine Color Urine Appearance Urine pH Ur Specific [place] Urine Protein Urine Ketones Urine Blood Urine Nitrate Urine Bilirubin Urine Urobilinogen Ur Leukocyte Esterase Urine WBC (Auto) Urine RBC (Auto) Ur Squamous Epith Cells Urine Bacteria Urine Glucose Urine Opiates Screen Ur Barbiturates Screen Ur Phencyclidine Scrn Ur Amphetamines Screen U Benzodiazepines Scrn Urine Cocaine Screen U Cannabinoids Screen Serum Alcohol Imaging: pending CT brain Assessment: 53y M w/pmhx of Schizoaffective disorder, bipolar disorder, substance abuse with alcohol?, h/o lower GI bleed 2016 with clipping; comes to ER because he stated he needed detoxing. Patient was in outpatient area and started to have a seizure, brought into the main ER, given Ativan with cessation of seizure. Vitals remained intact. Currently patient awake now, answering questions, slight confusion, moving all ext, not restless or agitated. States that he drinks a bottle a day, last drink was yesterday afternoon. ER told me he stated to them his last drink was 1 hour prior to ER arrival. Alcohol level zero on lab work. He is moving all extremities, no tremulousness noted, speaking in straight sentences. denies any previous seizure history. Mild bleeding from mouth during seizure but none at this time. -Alcohol withdrawal with seizures, suspected Delirium tremens -elevated LFTs, r/o alcoholic hepatitis Plan: Neuro- -seizure x1, apparently GTC, stopped with ativan 2mg iv x1 -now more awake, mild tremors noted but not agitated; he is cooperative, alert. -will start CIWA protocol; ativan PRN; valium 5mg po x1 now -noted alcohol level 0; no metabolic acidosis so i suspect he did not injest another type of alcohol -agree with NS+thiamine+folate+mvi; start po thiamine 200mg daily tomorrow, folate 1mg daily, MVI daily -CT brain pending to eval for structural abn -neurochecks q4h -seizure prec, fall prec -no other sedation currently; no ind for AEDs currently, may just be withdrawal seizures -no clinical suspicion for infectious process, no focal findings appreciated, no headaches/fevers. -on latuda and buproprion at home; bupropion can also cause seizures, though suspicion low, not a high dose; will hold it for now and treat suspected DTs -mental health/psych eval tomorrow -Delirium prec CVS- -BP stable, not tachycardia -IVF hydration -Maintain MAP>65 Resp- -on NC 3L post seizure; likely some atelectasis -no distress, resp status stable appearing -CXR tomorrow if needed -Wean Fio2 to keep sat>92% -Bronchodilators PRN, Aspiration prec, ID- afebrile, tmax 99.7, wbc normal. -no resp symptoms, no GI symptoms. -CXR for eval for any aspiration tomorrow -no abx indicated. GI- -NPO for now; PO reglar diet tomorrow -elevated LFTs, check LFT trend; check hep panel -RUQ ultrasound of GB/liver -if lfts rising , possibility of alcoholic hepatitis given his history is likely also; check discriminant factor -GI prophylaxis Renal- -strict I/O, replete to keep K>4, Mg>2 -garcia as indicated Heme- hg stable -DVT proph with chemical/mechanical Endo- Maintain BG<200, insulin protocol as needed Musculsk- pressure ulcer prophylaxis. Bedrest. Wounds- none Nutrition- NPO today, if alert, an trial PO diet DVT prophylaxis: - GI prophylaxis: - Central Line: no Arterial Line: no Garcia Cathetor: no Disposition: Patient requires Critical Care/ICU for neurochecks post seizure Expected LOS>2 midnights Patient Clinical Status: guarded Code Status: full code Total Critical Care time is 45 minutes, excluding procedures/teaching Steve Watts MD Bankruptcy Assistant (Electronically Signed)
[2019-03-23 17:17] LABS: Magnesium 1.6 mg/dL (1.9-2.7); Phosphorus 2.7 mg/dL (2.5-5.0)
[2019-03-23 17:25] LABS: Hepatitis B Surface Ab Not Immune (Immune); Hepatitis C Antibody Negative (Negative)
[2019-03-23] MEDS ORDERED: Diazepam TAB(*) 10 MG PO SCH (18:00)
[2019-03-23] MEDS: Acetaminophen TAB* 325 MG PO PRN (18:02)
[2019-03-23] MEDS: Famotidine TAB* 20 MG PO SCH (20:59)
[2019-03-23] MEDS ORDERED: Potassium Chlor TAB* 20 MEQ TAB.ER PO ONE (21:00)
[2019-03-23] MEDS ORDERED: Magnesium Sulfate 2 GM IV (Premix) IVPB ONE (21:00)
[2019-03-24 05:40] LABS: Activated Partial Thrombo Time 27.6 seconds (26.0-38.0); INR 0.91 (0.82-1.09)
[2019-03-24 05:43] LABS: Hematocrit 38 % (42-52); Hemoglobin 12.7 g/dL (14.0-18.0); Mean Corpuscular HGB Conc 33 g/dL (31-36); Mean Corpuscular Hemoglobin 32 pg (27-31); Mean Corpuscular Volume 97 fL (80-94); Mean Platelet Volume 8.8 fL (7.4-10.4); Platelet Count 108 10^3/uL (150-450); Red Blood Count 3.91 10^6 /uL (4.18-5.48); Red Cell Distribution Width 16 % (10-15); White Blood Count 4.2 10^3/uL (3.5-10.8)
[2019-03-24 05:51] LABS: ALT 183 U/L (7-52); Albumin 4.1 g/dL (3.2-5.2); Albumin/Globulin Ratio 1.9 (1-3); Alkaline Phosphatase 66 U/L (34-104); BUN/Creatinine Ratio 13.5 (8-20); Blood Urea Nitrogen 10 mg/dL (6-24); CO2 Carbon Dioxide 23 mmol/L (22-32); Calcium 8.5 mg/dL (8.6-10.3); Chloride 99 mmol/L (101-111); EGFR African American 134.4 (>60); EGFR Non-African American 111.1 (>60); Globulin 2.2 g/dL (2-4); Glucose 76 mg/dL (70-100); Sodium 134 mmol/L (135-145); Total Protein 6.3 g/dL (6.4-8.9)
[2019-03-24 05:55] LABS: Anion Gap 12 mmol/L (2-11)
[2019-03-24 06:30] LABS: TSH (Thyroid Stimulating Horm) 1.26 mcIU/mL (0.34-5.60)
[2019-03-24] MEDS: Acetaminophen TAB* 325 MG PO PRN (06:47)
[2019-03-24 07:00] LABS: Indirect Bilirubin 1.1 mg/dL (0.3-1.0); Potassium Redraw 3.7 mmol/L (3.5-5.0); Total Bilirubin 1.6 mg/dL (0.2-1.0)
[2019-03-24] MEDS: Famotidine TAB* 20 MG PO SCH ×2 (08:25→21:06)
[2019-03-24] MEDS: Folic Acid TAB* 1 MG PO SCH (08:25)
[2019-03-24] MEDS: Thiamine TAB* 100 MG TAB PO SCH (08:25)
[2019-03-24] MEDS: Multivitamins/Minerals TAB PO SCH (08:25)
[2019-03-24] MEDS: Potassium Chloride* LIQUID 20 MEQ/15 ML UDC PO ONE ×2 (09:36→09:48)
--- NOTE | 2019-03-24 10:09 | PN ---
Progress Note - Progress Note Date of Service: 03/24/19 Note: Progress Note -- Critical Care 24 hour events -no events overnight; valium at 6pm, ativan x1 only -awake, alert, mild trmeors but not tachy or hypertensive, answering questions -has mental illness but states he is not compliant with medications -states last drink yesterday before ER arrival -no headache/n/v, no abd pain, no cp/sob,no fever/chills Tele: NSR Vitals: Vital Signs Temp 99 F 03/24/19 07:21 Pulse 71 03/24/19 09:00 Resp 16 03/24/19 09:00 BP 115/80 03/24/19 09:00 Pulse Ox 98 03/24/19 09:00 Intake & Output 03/23/19 03/24/19 03/24/19 18:59 06:59 18:59 Intake Total 50 642 360 Output Total 550 0 Balance 50 92 360 Weight 88.5 kg 89.5 kg Intake: IV Fluids 462 Banana bag 425 NS 37 IVPB 60 Mag sulf 60 Oral 50 120 360 Output: Urine 550 0 Other: Estimated Void Medium O2/Vent: RA Infusions: heplock Current Medications: Acetaminophen (Tylenol Tab*) 650 mg PO Q4H PRN PRN Reason: PAIN Last Admin: 03/24/19 06:47 Dose: 650 mg Albuterol (Ventolin 2.5 Mg/3 Ml Neb.Dena*) 2.5 mg INH Q4H PRN PRN Reason: SOB/WHEEZING Diazepam (Valium Tab(*)) 0 - 30 mg PO .PER [facility] PROTOCOL [facility]; Protocol Famotidine (Pepcid Tab*) 20 mg PO BID [facility] Last Admin: 03/24/19 08:25 Dose: 20 mg Folic Acid (Folvite Tab*) 1 mg PO DAILY [facility] Last Admin: 03/24/19 08:25 Dose: 1 mg Lorazepam (Ativan Inj*) 1 mg IV PUSH Q1H PRN PRN Reason: restlessness Last Admin: 03/23/19 21:08 Dose: 1 mg Miscellaneous (Ativan Pyxis Saldivar) 1 ea N/A .ATIVAN IV SALDIVAR PRN PRN Reason: PYXIS SALDIVAR Multivitamins/Minerals (Theragran/Minerals Tab*) 1 tab PO DAILY [facility] Last Admin: 03/24/19 08:25 Dose: 1 tab Thiamine HCl (Vitamin B-1 Tab*) 100 mg PO DAILY [facility] Last Admin: 03/24/19 08:25 Dose: 100 mg Physical Exam: Constitutional: awake, alert, no distress, no diaphoresis Head: normocephalic, atraumatic Eyes: no pallor, no icterus ENT: moist mucous membranes Neck: soft, supple, no jvd, no stridor CVS: normal rate, regular, no murmur Resp: bilateral air entry, no rhales, no wheeze, no rhonchi, no acc muscle use Abdomen/GI: soft, nontender, nondistended, BS+ Ext/Msk: warm, pulses+, no edema Skin: intact, warm Neuro: awake, alert, orientedx3, moving all extremities Labs: Laboratory Results - last 24 hr 03/23/19 03/23/19 03/23/19 13:38 13:38 13:38 WBC 4.8 RBC 3.98 L Hgb 12.9 L Hct 38 L MCV 94 MCH 32 H MCHC 34 RDW 15 Plt Count 137 L MPV 8.2 Neut % (Auto) 79.8 Lymph % (Auto) 9.7 Isabela % (Auto) 9.8 Eos % (Auto) 0.1 Baso % (Auto) 0.6 Absolute Neuts (auto) 3.9 Absolute Lymphs (auto) 0.5 L Absolute Monos (auto) 0.5 Absolute Eos (auto) 0.0 Absolute Basos (auto) 0.0 Absolute Nucleated RBC 0.0 Nucleated RBC % 0.0 INR (Anticoag Therapy) 0.94 APTT Sodium Potassium Chloride Carbon Dioxide Anion Gap BUN Creatinine Est GFR ( Amer) Est GFR (Non-Af Amer) BUN/Creatinine Ratio Glucose Hemoglobin A1c Calcium Phosphorus Magnesium Total Bilirubin Direct Bilirubin Indirect Bilirubin GGT AST ALT Alkaline Phosphatase Ammonia Total Creatine Kinase C-Reactive Protein Total Protein Albumin Globulin Albumin/Globulin Ratio Amylase Lipase TSH Urine Color Urine Appearance Urine pH Ur Specific [place] Urine Protein Urine Ketones Urine Blood Urine Nitrate Urine Bilirubin Urine Urobilinogen Ur Leukocyte Esterase Urine WBC (Auto) Urine RBC (Auto) Ur Squamous Epith Cells Urine Bacteria Urine Glucose Urine Opiates Screen Ur Barbiturates Screen Ur Phencyclidine Scrn Ur Amphetamines Screen U Benzodiazepines Scrn Urine Cocaine Screen U Cannabinoids Screen Serum Alcohol < 10 Hepatitis B Antibody Hep Bs Antigen Hep B Core IgM Ab Hepatitis C Antibody Hepatitis C Ab Index 03/23/19 03/23/19 03/23/19 13:38 13:38 14:10 WBC RBC Hgb Hct MCV MCH MCHC RDW Plt Count MPV Neut % (Auto) Lymph % (Auto) Isabela % (Auto) Eos % (Auto) Baso % (Auto) Absolute Neuts (auto) Absolute Lymphs (auto) Absolute Monos (auto) Absolute Eos (auto) Absolute Basos (auto) Absolute Nucleated RBC Nucleated RBC % INR (Anticoag Therapy) APTT Sodium 136 Potassium 3.8 Chloride 96 L Carbon Dioxide 24 Anion Gap 16 H BUN 11 Creatinine 0.83 Est GFR ( Amer) 117.7 Est GFR (Non-Af Amer) 97.3 BUN/Creatinine Ratio 13.3 Glucose 95 Hemoglobin A1c 5.2 Calcium 9.7 Phosphorus 2.7 Magnesium 1.6 L Total Bilirubin 2.00 H Direct Bilirubin Indirect Bilirubin GGT AST 278 H ALT 236 H Alkaline Phosphatase 71 Ammonia Total Creatine Kinase 692 H C-Reactive Protein 13.02 H Total Protein 6.8 Albumin 4.4 Globulin 2.4 Albumin/Globulin Ratio 1.8 Amylase 68 Lipase 243 H TSH Urine Color Mai Urine Appearance Clear Urine pH 6.0 Ur Specific [place] 1.023 Urine Protein 1+(30 mg/dl) A Urine Ketones 2+ A Urine Blood 1+ A Urine Nitrate Negative Urine Bilirubin Negative Urine Urobilinogen Positive A Ur Leukocyte Esterase Negative Urine WBC (Auto) Absent Urine RBC (Auto) Trace(0-2/hpf) Ur Squamous Epith Cells Present A Urine Bacteria Absent Urine Glucose Negative Urine Opiates Screen Ur Barbiturates Screen Ur Phencyclidine Scrn Ur Amphetamines Screen U Benzodiazepines Scrn Urine Cocaine Screen U Cannabinoids Screen Serum Alcohol Hepatitis B Antibody Hep Bs Antigen Hep B Core IgM Ab Hepatitis C Antibody Hepatitis C Ab Index 03/23/19 03/23/19 03/23/19 14:10 14:31 14:31 WBC RBC Hgb Hct MCV MCH MCHC RDW Plt Count MPV Neut % (Auto) Lymph % (Auto) Isabela % (Auto) Eos % (Auto) Baso % (Auto) Absolute Neuts (auto) Absolute Lymphs (auto) Absolute Monos (auto) Absolute Eos (auto) Absolute Basos (auto) Absolute Nucleated RBC Nucleated RBC % INR (Anticoag Therapy) APTT Sodium Potassium Chloride Carbon Dioxide Anion Gap BUN Creatinine Est GFR ( Amer) Est GFR (Non-Af Amer) BUN/Creatinine Ratio Glucose Hemoglobin A1c Calcium Phosphorus Magnesium Total Bilirubin Direct Bilirubin Indirect Bilirubin GGT AST ALT Alkaline Phosphatase Ammonia 45 Total Creatine Kinase C-Reactive Protein Total Protein Albumin Globulin Albumin/Globulin Ratio Amylase Lipase TSH Urine Color Urine Appearance Urine pH Ur Specific [place] Urine Protein Urine Ketones Urine Blood Urine Nitrate Urine Bilirubin Urine Urobilinogen Ur Leukocyte Esterase Urine WBC (Auto) Urine RBC (Auto) Ur Squamous Epith Cells Urine Bacteria Urine Glucose Urine Opiates Screen None detected Ur Barbiturates Screen None detected Ur Phencyclidine Scrn None detected Ur Amphetamines Screen None detected U Benzodiazepines Scrn None detected Urine Cocaine Screen None detected U Cannabinoids Screen Presumptive positive A Serum Alcohol Hepatitis B Antibody Not immune A Hep Bs Antigen Negative Hep B Core IgM Ab Nonreactive Hepatitis C Antibody Negative Hepatitis C Ab Index 0.00 03/23/19 03/24/19 03/24/19 14:31 05:20 05:20 WBC RBC Hgb Hct MCV MCH MCHC RDW Plt Count MPV Neut % (Auto) Lymph % (Auto) Isabela % (Auto) Eos % (Auto) Baso % (Auto) Absolute Neuts (auto) Absolute Lymphs (auto) Absolute Monos (auto) Absolute Eos (auto) Absolute Basos (auto) Absolute Nucleated RBC Nucleated RBC % INR (Anticoag Therapy) 0.91 APTT 27.6 Sodium Potassium Chloride Carbon Dioxide Anion Gap BUN Creatinine Est GFR ( Amer) Est GFR (Non-Af Amer) BUN/Creatinine Ratio Glucose Hemoglobin A1c Calcium Phosphorus Magnesium Total Bilirubin Direct Bilirubin Indirect Bilirubin GGT 332 H AST ALT Alkaline Phosphatase Ammonia 80 H Total Creatine Kinase C-Reactive Protein Total Protein Albumin Globulin Albumin/Globulin Ratio Amylase Lipase TSH Urine Color Urine Appearance Urine pH Ur Specific [place] Urine Protein Urine Ketones Urine Blood Urine Nitrate Urine Bilirubin Urine Urobilinogen Ur Leukocyte Esterase Urine WBC (Auto) Urine RBC (Auto) Ur Squamous Epith Cells Urine Bacteria Urine Glucose Urine Opiates Screen Ur Barbiturates Screen Ur Phencyclidine Scrn Ur Amphetamines Screen U Benzodiazepines Scrn Urine Cocaine Screen U Cannabinoids Screen Serum Alcohol Hepatitis B Antibody Hep Bs Antigen Hep B Core IgM Ab Hepatitis C Antibody Hepatitis C Ab Index 03/24/19 03/24/19 03/24/19 05:20 05:20 06:15 WBC 4.2 RBC 3.91 L Hgb 12.7 L Hct 38 L MCV 97 H MCH 32 H MCHC 33 RDW 16 H Plt Count 108 L MPV 8.8 Neut % (Auto) Lymph % (Auto) Isabela % (Auto) Eos % (Auto) Baso % (Auto) Absolute Neuts (auto) Absolute Lymphs (auto) Absolute Monos (auto) Absolute Eos (auto) Absolute Basos (auto) Absolute Nucleated RBC Nucleated RBC % INR (Anticoag Therapy) APTT Sodium 134 L Potassium TNP 3.7 Chloride 99 L Carbon Dioxide 23 Anion Gap 12 H BUN 10 Creatinine 0.74 Est GFR ( Amer) 134.4 Est GFR (Non-Af Amer) 111.1 BUN/Creatinine Ratio 13.5 Glucose 76 Hemoglobin A1c Calcium 8.5 L Phosphorus Magnesium Total Bilirubin 1.50 H 1.60 H Direct Bilirubin TNP 0.50 H Indirect Bilirubin TNP 1.1 H GGT AST TNP 214 H ALT 183 H Alkaline Phosphatase 66 Ammonia Total Creatine Kinase C-Reactive Protein Total Protein 6.3 L Albumin 4.1 Globulin 2.2 Albumin/Globulin Ratio 1.9 Amylase Lipase TSH 1.26 Urine Color Urine Appearance Urine pH Ur Specific [place] Urine Protein Urine Ketones Urine Blood Urine Nitrate Urine Bilirubin Urine Urobilinogen Ur Leukocyte Esterase Urine WBC (Auto) Urine RBC (Auto) Ur Squamous Epith Cells Urine Bacteria Urine Glucose Urine Opiates Screen Ur Barbiturates Screen Ur Phencyclidine Scrn Ur Amphetamines Screen U Benzodiazepines Scrn Urine Cocaine Screen U Cannabinoids Screen Serum Alcohol Hepatitis B Antibody Hep Bs Antigen Hep B Core IgM Ab Hepatitis C Antibody Hepatitis C Ab Index Imaging: ct brain 03/23 - no acute findings cxr - no infiltrate/congestion US abd - enlarged liver; no obstruction noted, GB without distension or fluid Assessment: 53y M w/pmhx of Schizoaffective disorder, bipolar disorder, substance abuse with alcohol?, h/o lower GI bleed 2016 with clipping; comes to ER because he stated he needed detoxing. Patient was in outpatient area and started to have a seizure, brought into the main ER, given Ativan with cessation of seizure. Vitals remained intact. Currently patient awake now, answering questions, slight confusion, moving all ext, not restless or agitated. States that he drinks a bottle a day, last drink was yesterday afternoon. ER told me he stated to them his last drink was 1 hour prior to ER arrival. Alcohol level zero on lab work. He is moving all extremities, no tremulousness noted, speaking in straight sentences. denies any previous seizure history. Mild bleeding from mouth during seizure but none at this time. -Alcohol withdrawal with seizures, suspected Delirium tremens -elevated LFTs, r/o alcoholic hepatitis -Alcoholic pancreatitis suspected Plan: Neuro- -no further seizures overnight; acutally not requiring much BDZ, minimal tremors -will keep valium q12h; ativan prn, cont CIWA protocol -CT brain negative -will need mental health consult for underlying bipolar and for substance abuse -cont po thiamine 200mg daily , folate 1mg daily, MVI daily -neurochecks q4h -seizure prec, fall prec -no other sedation currently; no ind for AEDs currently -no clinical suspicion for infectious process, no focal findings appreciated, no headaches/fevers. -on latuda and buproprion at home; bupropion can also cause seizures, though suspicion low, not a high dose; will hold it for now -Delirium prec CVS- -BP stable, not tachycardic -IVF hydration PRN -Maintain MAP>65 Resp- -RA, no distress -CXR 03/23 - no acute findings -Wean Fio2 to keep sat>92% -Bronchodilators PRN, Aspiration prec ID- afebrile, wbc normal. -no abx indicated. GI- -start regular diet trial; no nausea/vom; no abd pain -elevated lipase today; no obstr on US abd noted -mild pancreatitis -elevated LFTs, slow downtrend; check PT today; check discriminate factor; may need prednisolone if suspected acute alcoholic hepatitis -check lipase today, add on to labs -GI prophylaxis Renal- -strict I/O, replete to keep K>4, Mg>2 -garcia as indicated Heme- hg stable -DVT proph with chemical/mechanical Endo- Maintain BG<200, insulin protocol as needed Musculsk- pressure ulcer prophylaxis. oob to chair Wounds- none Nutrition- start regular diet DVT prophylaxis: - GI prophylaxis: pepcid Central Line: no Arterial Line: no Garcia Cathetor: no Disposition: stable, can be stable for downgrade to medical floor Patient Clinical Status: stable Code Status: full code Steve Watts MD [employer] [facility] (Electronically Signed)
[2019-03-24] MEDS ORDERED: Potassium Chlor TAB* 20 MEQ TAB.ER PO ONE (10:37)
[2019-03-24] MEDS ORDERED: Diazepam TAB(*) 5 MG PO SCH (11:48)
[2019-03-25 06:43] LABS: Hematocrit 37 % (42-52); Hemoglobin 12.8 g/dL (14.0-18.0); Mean Corpuscular HGB Conc 34 g/dL (31-36); Mean Corpuscular Hemoglobin 32 pg (27-31); Mean Corpuscular Volume 95 fL (80-94); Mean Platelet Volume 8.4 fL (7.4-10.4); Platelet Count 115 10^3/uL (150-450); Red Blood Count 3.95 10^6 /uL (4.18-5.48); Red Cell Distribution Width 15 % (10-15); White Blood Count 5.4 10^3/uL (3.5-10.8)
[2019-03-25 06:56] LABS: Albumin 3.7 g/dL (3.2-5.2); Albumin/Globulin Ratio 1.7 (1-3); BUN/Creatinine Ratio 12.5 (8-20); Calcium 9.2 mg/dL (8.6-10.3); EGFR African American 138.7 (>60); EGFR Non-African American 114.6 (>60); Globulin 2.2 g/dL (2-4); Indirect Bilirubin 0.7 mg/dL (0.3-1.0); Potassium 3.7 mmol/L (3.5-5.0); Total Bilirubin 0.9 mg/dL (0.2-1.0); Total Protein 5.9 g/dL (6.4-8.9)
[2019-03-25] MEDS: Famotidine TAB* 20 MG PO SCH (10:27)
[2019-03-25] MEDS: Folic Acid TAB* 1 MG PO SCH (10:27)
[2019-03-25] MEDS: Thiamine TAB* 100 MG TAB PO SCH (10:27)
[2019-03-25] MEDS: Multivitamins/Minerals TAB PO SCH (10:27)
[2019-03-25 12:16] VITALS: BP 129/90
--- NOTE | 2019-03-25 14:53 | DS ---
CC: [facility] * DISCHARGE SUMMARY: DATE OF ADMISSION: 03/23/19 DATE OF DISCHARGE: 03/25/19 PRIMARY CARE PROVIDER: [facility]. ATTENDING PHYSICIAN: Dr. Erasmo Garduno * (dictated by JESSE Tucker). PRIMARY DIAGNOSES: 1. Alcohol withdrawal with seizure. 2. Elevated LFTs. 3. Mild alcoholic pancreatitis. 4. Macrocytic anemia. SECONDARY DIAGNOSES: 1. Schizoaffective disorder. 2. Bipolar disorder. 3. Substance abuse - alcohol. 4. History of gastrointestinal bleed, requiring clipping in 2016. STUDIES WHILE IN THE HOSPITAL: Brain CT, 03/23/19, impression: No acute intracranial findings. Mild diffuse cortical volume loss, more than expected for the patient's age. Limited abdominal ultrasound, 03/23/19, impression: Mild hepatomegaly with increased homogeneous echogenicity of the liver parenchyma. This appearance could be seen in the setting of hepatic steatosis or other chronic infiltrative disease of the liver. Chest x-ray, 03/24/19, impression: No active cardiopulmonary disease. Laboratory Data: HGB 12.8, HCT 37, MCV 95, MCH 32, platelet count 115. Total bilirubin 0.90, direct 0.20, indirect 0.70, AST 128, ALT 141, alk phos 72, lipase 154. DISCHARGE MEDICATIONS: Sellers Medications: 1. Folic acid 1 mg p.o. daily. 2. Thiamine 100 mg p.o. daily. 3. Multivitamin/minerals 1 tab p.o. daily. Discontinued Medications: 1. Bupropion XL 300 mg p.o. daily. 2. Metformin 1000 mg p.o. b.i.d. 3. Liothyronine 25 mcg p.o. daily. 4. Lurasidone 80 mg p.o. daily. 5. Naltrexone 50 mg p.o. daily. 6. Cyclobenzaprine 10 mg p.o. b.i.d. p.r.n. 7. Campral 666 mg p.o. daily. 8. Escitalopram 10 mg p.o. daily. Continued Home Medications: None. HISTORY OF PRESENT ILLNESS/HOSPITAL COURSE: Mr. Gamble is a 53-year-old male with past medical history of schizoaffective disorder, bipolar disorder, alcohol/substance abuse disorder, and history of GI bleed with clipping in 2016 who presents to the ER today stating that he needed alcohol detoxification. The patient states that he started shaking uncontrollably and then called the ambulance. He states that he started to have a seizure. He was given Ativan, which led to cessation of seizure. He was admitted to the intensive care unit, where he was put on seizure precaution and WAM protocol. He was noted to require Ativan for withdrawal symptoms. His last dose of lorazepam was 2100 on 03/23/19. He has greater than 36 hours without benzodiazepine and is very eager to be discharged. Prior to discharge, the patient is expressing interest in outpatient alcohol rehabilitation programs. Social Work presented the patient with a list from which he picked a program. toll testboard worker, Calista, offered to call the program with the patient, for which he declined, stating that he is comfortable calling on his own. The patient's home medication list shows multiple psychiatric medications as well as metformin and liothyronine. The patient states that he stopped taking these medications approximately 3 months ago. He notes that his psychiatrist is not aware that he discontinued his medications, although he states that he has recently seen his psychiatrist. It was recommended that he follow up with his psychiatrist within the week to discuss use of medications and medication changes. He also notes that he was on thyronine and metformin at the request of his psychiatrist. Hemoglobin A1c was 5.2 and within normal limits. TSH was 1.26 and within normal limits. The patient is noted to have elevated liver enzymes as well as elevated lipase at the time of admission. These have trended down throughout his stay. He denies abdominal pain, nausea, vomiting, diarrhea, or constipation. He denies withdrawal symptoms. It is noted that he is tremulous, but he does not feel agitated. He states that he feels warm and is noted to be diaphoretic. He denies palpitations, chest pain, shortness of breath. Again, he has not required benzodiazepines in greater than 36 hours. The patient is noted to have macrocytic anemia. For this, he was started on thiamine and folic acid. He will be continued on these medications at discharge. Mr. Gamble is stable for discharge. PHYSICAL EXAMINATION: Vital signs are temperature 98.2 oral, heart rate 72, respiratory rate 19, oxygen saturation 99% on room air, blood pressure 129/90. General: Mr. Gamble is a well-developed, well-nourished, overweight middle - aged male who is sitting at the edge of his bed with his feet on the ground. He appears tremulous, but is soft-spoken and cooperative. He is eager for discharge, but shows no agitation. HEENT: Visual campos grossly intact. PERRL. Anicteric sclerae. Hearing grossly intact. Oral mucous membranes are moist. There are no lesions. The pharynx is clear. Cardiovascular: Regular rate and rhythm with S1, S2 present without murmurs, rubs, clicks, or gallops. Respiratory: Symmetrical chest expansion without use of accessory muscles. Lungs clear to auscultation. No rhonchi, wheezes, or rubs. Abdomen: Soft. There is no tenderness to palpation. Bowel sounds noted throughout. There is no hepatosplenomegaly. Extremities: Skin is warm and moist. The patient is somewhat diaphoretic. There is no clubbing, cyanosis, or edema. Radial and pedal pulses are palpable. Neuro: The patient is awake. He is alert and oriented x3. He is competent and able to make his own decisions. He is able to move all of his extremities. He has a steady gait without impairment. Motor strength is equal at 5/5 in the upper and lower extremities bilaterally. DISCHARGE PLAN: Mr. Gamble will be discharged home. CONDITION: Fair. ACTIVITY: As tolerated. DIET: Regular. MEDICATIONS: 1. Continue folic acid, thiamine, and multivitamins. 2. Discuss use of outpatient antidepressant/antipsychotic medications with [facility] psychiatrist. EDUCATION: 1. Follow up with [facility] in 4 to 7 days. Office will call with appointment date and time. 2. Follow up with mental health provider at [facility] in 4 to 7 days. Discuss medication use. 3. Information regarding alcohol recovery programs for outpatient and inpatient provided. 4. Return to the ER or nearest hospital if you experience any worsening of symptoms, return of seizure activity, chest discomfort, shortness of breath, dizziness, lightheadedness, loss of consciousness, high fevers, chills, night sweats, or any other worrisome signs or symptoms. This is a summarized report of a complex medical history and hospital stay. For further details, please see the entire medical record. TIME SPENT: Approximately 30 minutes were spent on this discharge, greater than half that time was spent [id number] with the patient discussing discharge plans and instructions. JESSE KENNY [id number]/[facility] #: [id number] GUILLERMO
== END 2019-03-25 14:30 | disposition home or self-care (01) | DRG 896 ==
LOC: ED 12:39 → INTOOBSV 17:28 → ICU 17:28 → MED 03-24 12:15
PROVIDERS: ADMIT Internal Medicine Critical Care Medicine; ATTEND Internal Medicine
DX: F10.231 Alcohol dependence with withdrawal delirium (principal); K85.20 Alcohol induced acute pancreatitis without necrosis or infection; G40.89 Other seizures; K29.20 Alcoholic gastritis without bleeding; Y90.9 Presence of alcohol in blood, level not specified; F25.9 Schizoaffective disorder, unspecified; F31.9 Bipolar disorder, unspecified; R40.2362 Coma scale, best motor response, obeys commands, at arrival to emergency department; E66.3 Overweight; R40.2142 Coma scale, eyes open, spontaneous, at arrival to emergency department; D53.9 Nutritional anemia, unspecified; R40.2252 Coma scale, best verbal response, oriented, at arrival to emergency department; Z88.8 Allergy status to other drugs, medicaments and biological substances; Z86.010 Personal history of colon polyps; Z86.19 Personal history of other infectious and parasitic diseases; Z87.891 Personal history of nicotine dependence; Z68.26 Body mass index [BMI] 26.0-26.9, adult
CPT/HCPCS: 36415; 70450; 71045; 76705; 80048; 80053; 80076; 80307; 80320; 81003; 81015; 82140; 82150; 82247; 82248; 82550; 82977; 83036; 83690; 83735; 84100; 84443; 85025; 85027; 85610; 85730; 86140; 86705; 86706; 86803; 87340; 87641; 93005; 99285; A9270-GY; G0378; G0480; J2060; J3411; J3475

== ENCOUNTER 2019-04-15 10:10 | Emergency (ER) | payer MEDICARE, MEDICAID ==
[2019-04-15 10:18] VITALS: BP 135/89
--- NOTE | 2019-04-15 10:21 | UC ---
Skin Complaint HPI - HPI Summary HPI Summary: 53 y/o male presents to the urgent care c/o noticed a velia in the left thigh about 2 days ago and he thinks it is Lyme. He thinks it is probably a tick bite , but he denies Hx of tick bite or insect bites. velia is purple in color and non tender. Pt denies fever, joint pain, LIU, neck pain, fatigue, SOB, chest pain , abdominal pain, N/V/d. He also has some scattered discrete red papules below his hairs in the chest and abdomen for several days. - History of Current Complaint Chief Complaint: UCSkin Time Seen by Provider: 04/15/19 10:19 Stated Complaint: SKIN ISSUE Hx Obtained From: Patient Onset/Duration: Gradual Onset, Lasting Days - he noticed a rash in his left thigh 2 days ago and is concerned about lyme, Still Present Skin Exposure Onset/Duration: Days Ago - 2 days Timing: Constant Onset Severity: Mild Current Severity: Mild Pain Intensity: 0 Pain Scale Used: 0-10 Numeric Location: Discrete - in LF thigh Character: Redness - purple in color Aggravating Factor(s): Nothing Alleviating Factor(s): Nothing Associated Signs & Symptoms: Positive: Rash - purple rash in the RT thigh. Negative: Fever, Chills Related History: Other: - unknown - Allergy/Home Medications Allergies/Adverse Reactions: Allergies Allergy/AdvReac Type Severity Reaction Status Date / Time fluphenazine [From Prolixin] Allergy Rash Verified 04/15/19 10:12 PMH/Surg Hx/FS Hx/Imm Hx Previously Healthy: Yes Psychological History: Schizophrenia Other History Of: Negative For: Anticoagulant Therapy - Surgical History Surgical History: Yes Surgery Procedure, Year, and Place: COLON POLYPS REMOVED - Family History Known Family History: Positive: None - pt denies problems with heart, lungs, or joints in relatives - Social History Occupation: Employed Full-time Lives: With Family Alcohol Use: reports 1 bottle of whiskey per day Alcohol Amount: 1L whiskey a day Substance Use Type: None Substance Use Comment - Amount & Last Used: 1/2 joint daily Smoking Status (MU): Never Smoked Tobacco - Immunization History Most Recent Influenza Vaccination: 2014 Most Recent Tetanus Shot: unknown Most Recent Pneumonia Vaccination: never Review of Systems All Other Systems Reviewed And Are Negative: Yes Constitutional: Positive: Negative Skin: Positive: Rash - LF thigh purple rash, Eyes: Positive: Negative ENT: Positive: Negative Respiratory: Positive: Negative Cardiovascular: Positive: Negative Gastrointestinal: Positive: Negative Genitourinary: Positive: Negative Motor: Positive: Negative Neurovascular: Positive: Negative Musculoskeletal: Positive: Negative Neurological: Positive: Negative Psychological: Positive: Negative Physical Exam - Summary Physical Exam Summary: Vital Signs Reviewed: Yes General: well appearing, well nourished male in no acute apparent pain distress , sitting comfortably on examining table Eye Exam: Normal Eyes: Positive: Conjunctiva Clear - PERRLA< EOMI, fundi grossly normal ENT: Positive: Normal ENT inspection, Hearing grossly normal, Pharynx normal, TMs normal Neck: Positive: Supple, Nontender, No Lymphadenopathy Respiratory: Positive: Chest non-tender, Lungs clear, Normal breath sounds, No respiratory distress Cardiovascular: Positive: RRR, No Murmur, Pulses Normal, Brisk Capillary Refill Abdomen Description: Positive: Nontender, No Organomegaly, Soft. Negative: CVA Tenderness (R), CVA Tenderness (L) Bowel Sounds: Positive: Present Musculoskeletal: Positive: Strength Intact, ROM Intact, No Edema Neurological: Positive: Alert, Muscle Tone Normal Psychological Exam: Normal Skin: Positive: Medial aspect of distal LF thigh w/ a Small oval purple macule, nocentral clearance, about 1cm x 0.5cm in size, non tender, no swelling , not raised, no drainage. Possible a bruise, now healing. Scattered erythematous folicules in the chest and abdomen, non tender on palpation. no drainage observed. pulses WNL, capillary refill brisk, sensation WNL. Triage Information Reviewed: Yes Vital Signs: Initial Vital Signs Temp 98.1 F 04/15/19 10:14 Pulse 70 04/15/19 10:14 Resp 16 04/15/19 10:14 BP 135/89 04/15/19 10:14 Pulse Ox 100 04/15/19 10:14 Course/Dx - Course Course Of Treatment: 53 y/o male presents to the urgent care c/o noticed a velia in the left thigh about 2 days ago and he thinks it is Lyme. He thinks it is probably a tick bite , but he denies Hx of tick bite or insect bites. velia is purple in color and non tender. Pt denies fever, joint pain, LIU, neck pain, fatigue, SOB, chest pain , abdominal pain, N/V/d. He also has some scattered discrete red papules below his hairs in the chest and abdomen for several days. Hx obtained. Pt w/ Medial aspect of distal LF thigh w/ a Small oval purple macule,nocentral clearance, about 1cm x 0.5cm in size, non tender, no swelling , not raised, no drainage. Possible a bruise, now healing. Scattered erythematous folicules in the chest and abdomen, non tender on palpation. no drainage observed on examination. Pt w / possible folliculitis. Pt will be Tx w/ Bactroban oin as directed below. Advised if not improvement of symptoms to return to the urgetn care or f/u w/ his PCP in 1 week. D/C instructions explained. pt understood and agreed w/ plan of care. - Differential Diagnoses - Skin Complaint Differential Diagnoses: Abscess, Cellulitis, Contact Dermatitis, Impetigo, Local Allergic Reaction, MRSA, Poison Cherry, Tick Born Illness, Urticaria, Other - folliculitis - Diagnoses Provider Diagnosis: Folliculitis Discharge - Sign-Out/Discharge Documenting (check all that apply): Patient Departure - D/C home All imaging exams completed and their final reports reviewed: No Studies - Discharge Plan Condition: Stable Disposition: HOME Prescriptions: Mupirocin 2% OINT* [Bactroban 2 % Oint*] 1 applic TOPICAL BID #1 tube Patient Education Materials: Folliculitis (ED) Referrals: [facility] PHYSICIAN REFERRAL [Outside] - If Needed Additional Instructions: 1-Please apply Bactroban topical cream in the rash in your abdomen as directed. 2-The rash you have in your Rt thigh is not Lyme. It is probably a bruise that is now resolving 3-If symptoms do not improve or worsen please f/u with your PCP or return to the urgent care in the 1 week for further evaluation and treatment. - Billing Disposition and Condition Condition: STABLE Disposition: Home - Attestation Statements Provider Attestation: This patient was not seen or disposed by me. I was available for consult.
== END 2019-04-15 10:38 | disposition home or self-care (01) ==
LOC: UCEAST 10:10
DX: L73.9 Follicular disorder, unspecified (principal); F20.9 Schizophrenia, unspecified
CPT/HCPCS: 99212; G0463

== ENCOUNTER 2019-04-22 15:37 | Inpatient (IN) | payer MEDICARE, MEDICAID ==
--- NOTE | 2019-04-22 16:13 | ED ---
Psychiatric Complaint - HPI Summary HPI Summary: A 53 y/o male presents to [facility] with a chief complaint of being brought in by [facility] ambulance on a 9.45. The patient was at the police station and says that he sees his therapist once every few weeks. He says that the therapist says that the patient has lost some weight. He denies taking medications for some times, and claims that he has not been psychotic for years. He says that he is non violent and not trying to harm himself or others. He is sleeping at night and is eating and drinking. He sees his therapist once every two weeks. He says that he is angry that his therapist does not seem to have his best interests in mind. He admits to smoking marijuana but denies other drug use or EtOH use. However, according to his chart, the patient drinks 1L of whiskey per day. Pt denies any fever, chills, erythema of eyes, sore throat, CP, SOB, cough, abdominal pain, N/V, dysuria, hematuria, myalgia, edema, rash, or dizziness. - History Of Current Complaint Time Seen by Provider: 04/22/19 15:57 Hx Obtained From: Patient, EMS Onset/Duration: Sudden Onset, Lasting Hours, Still Present Timing: Constant Severity Initially: Mild Severity Currently: Mild Character: Angry Aggravating Factor(s): Nothing Alleviating Factor(s): Nothing Associated Signs And Symptoms: Negative: Sleep Disturbance, Appetite Change Related History: Positive For: Prior Psychiatric Issues Has Suicidal: Denies: Thoughts Has Homicidal: Denies: Thoughts - Allergies/Home Medications Allergies/Adverse Reactions: Allergies Allergy/AdvReac Type Severity Reaction Status Date / Time fluphenazine [From Prolixin] Allergy Rash Verified 04/15/19 10:12 Home Medications: Home Medications Unobtainable 04/22/19 [History Confirmed 04/22/19] PMH/Surg Hx/FS Hx/Imm Hx Endocrine/Hematology History: Denies: Hx Anticoagulant Therapy, Hx Diabetes, Hx Thyroid Disease Cardiovascular History: Denies: Hx Hypertension Respiratory History: Denies: Hx Asthma, Hx Chronic Obstructive Pulmonary Disease (COPD) GI History: Denies: Hx Ulcer Musculoskeletal History: Reports: Hx Tendonitis - Left shoulder Sensory History: Denies: Hx Contacts or Glasses, Hx Hearing Aid Opthamlomology History: Denies: Hx Contacts or Glasses Psychiatric History: Reports: Hx Inpatient Treatment, Hx Community Mental Health Tx, Hx Schizophrenia, Hx Bipolar Disorder, Hx Substance Abuse - etoh Denies: Hx Anxiety, Hx Attention Deficit Hyperactivity Disorder, Hx Eating Disorder, Hx Depression, Hx Panic Disorder, Hx Post Traumatic Stress Disorder, Hx Suicide Attempt, Hx of Violent Episodes Against Others - Surgical History Surgery Procedure, Year, and Place: COLON POLYPS REMOVED Infectious Disease History: Reports: Hx Shingles Denies: Hx Hepatitis, Hx Human Immunodeficiency Virus (HIV), Hx of Known/ Suspected MRSA, Hx Tuberculosis, Hx Known/Suspected VRSA - Family History Known Family History: Positive: None - pt denies problems with heart, lungs, or joints in relatives - Social History Alcohol Use: 1L of whiskey per day Hx Substance Use: No Substance Use Type: Reports: Marijuana Hx Tobacco Use: No Smoking Status (MU): Never Smoked Tobacco Review of Systems Negative: Fever, Chills Negative: Erythema Negative: Sore Throat Negative: Chest Pain Negative: Shortness Of Breath, Cough Negative: Abdominal Pain, Vomiting, Nausea Negative: dysuria, hematuria Negative: Myalgia, Edema Negative: Rash Neurological: Negative - dizziness Psychological: Other - negative: SI/HI, positive: agitated because of therapist All Other Systems Reviewed And Are Negative: Yes Physical Exam - Summary Physical Exam Summary: Constitutional: Well-developed, Well-nourished, Alert. (-) Distressed Skin: Warm, Dry HENT: Normocephalic; Atraumatic Eyes: Conjunctiva normal Neck: Musculoskeletal ROM normal neck. (-) JVD, (-) Stridor, (-) Tracheal deviation Cardio: Rhythm regular, rate normal, Heart sounds normal; Intact distal pulses; The pedal pulses are 2+ and symmetric. Radial pulses are 2+ and symmetric. (-) Murmur Pulmonary/Chest wall: Effort normal. (-) Respiratory distress, (-) Wheezes, (-) Rales Abd: Soft, (-) tenderness, (-) Distension, (-) Guarding, (-) Rebound Musculoskeletal: (-) Edema Lymph: (-) Cervical adenopathy Neuro: Alert, Oriented x3 Psych: anxious appearing, pressured speech, delusions of persecution against his therapist. Triage Information Reviewed: Yes Vital Signs Reviewed: Yes Diagnostics - Laboratory Result Diagrams: 04/22/19 16:13 04/22/19 16:13 Lab Statement: Any lab studies that have been ordered have been reviewed, and results considered in the medical decision making process. Course/Dx - Course Course Of Treatment: A 53 y/o male presents to [facility] with a chief complaint of being brought in by [facility] ambulance on a 9.45. The patient was at the police station and says that he sees his therapist once every few weeks. He says that the therapist says that the patient has lost some weight. He denies taking medications for some times, and claims that he has not been psychotic for years. He says that he is non violent and not trying to harm himself or others. He is sleeping at night and is eating and drinking. He sees his therapist once every two weeks. He says that he is angry that his therapist does not seem to have his best interests in mind. He admits to smoking marijuana but denies other drug use or EtOH use. However, according to his chart, the patient drinks 1L of whiskey per day. Pt denies any fever, chills, erythema of eyes, sore throat, CP, SOB, cough, abdominal pain, N/V, dysuria, hematuria, myalgia, edema , rash, or dizziness. The physical exam revealed that the patient was anxious appearing, had pressured speech, delusions of persecution against his therapist. Blood work chemistries, urines and toxicology obtained and the patient has been cleared for MHE. Per mental health food service worker, Dr. Lund has decided that the patient will be admitted. Dx: schizo affective disorder. - Differential Dx/Clinical Impression Provider Diagnosis: Schizoaffective disorder, unspecified condition - Physician Notifications Discussed Care Of Patient With: Deniz Lund Time Discussed With Above Provider: 19:02 Instructed by Provider To: Other - Per mental health food service worker, Dr. Lund has decided that the patient will be admitted. Dx: schizo affective disorder. Discharge - Sign-Out/Discharge Documenting (check all that apply): Patient Departure - admit Patient Received Moderate/Deep Sedation with Procedure: No - Discharge Plan Condition: Fair Disposition: [facility]AC[facility] [place] Referrals: No Primary Care Phys,NOPCP [Primary Care Provider] - - Attestation Statements Document Initiated by Scribe: Yes Documenting Scribe: Greg Bruno Provider For Whom Scribe is Documenting (Include Credential): Mikey Garnett MD Scribe Attestation: Greg Sheikh, scribed for Mikey Garnett MD on 04/22/19 at 1900. Status of Scribe Document: Ready
[2019-04-22 16:35] LABS: ABS Basophils 0.1 10^3/ul (0-0.2); ABS Eosinophils 0.1 10^3/ul (0-0.6); ABS Lymphocytes 1.5 10^3/ul (1.0-4.8); ABS Monocytes 0.6 10^3/ul (0-0.8); ABS Neutrophils 4.7 10^3/ul (1.5-7.7); Eosinophil % 0.7 %; Hematocrit 43 % (42-52); Hemoglobin 14.9 g/dL (14.0-18.0); Lymphocyte % 21.7 %; Mean Corpuscular HGB Conc 35 g/dL (31-36); Mean Corpuscular Hemoglobin 32 pg (27-31); Mean Corpuscular Volume 92 fL (80-94); Mean Platelet Volume 8.6 fL (7.4-10.4); Platelet Count 269 10^3/uL (150-450); Red Cell Distribution Width 14 % (10-15); White Blood Count 6.9 10^3/uL (3.5-10.8)
[2019-04-22 16:41] LABS: Urine Appearance Clear; Urine Bacteria Absent (Absent); Urine Bilirubin Negative (Negative); Urine Blood Negative (Negative); Urine Color Yellow; Urine Glucose Negative (Negative); Urine Ketones Negative (Negative); Urine Nitrite Negative (Negative); Urine Protein Negative (Negative); Urine Red Blood Cell Trace(0-2/hpf) (Absent); Urine Specific Gravity 1.015 (1.010-1.030); Urine Squamous Epithelial Cell Present (Absent); Urine Urobilinogen Negative (Negative); Urine White Blood Cell Trace(0-5/hpf) (Absent)
[2019-04-22 16:44] LABS: Albumin 4.7 g/dL (3.2-5.2); Calcium 9.8 mg/dL (8.6-10.3); Potassium 4.1 mmol/L (3.5-5.0); Total Bilirubin 0.6 mg/dL (0.2-1.0)
[2019-04-22 16:50] LABS: Albumin/Globulin Ratio 1.7 (1-3); BUN/Creatinine Ratio 13.8 (8-20); EGFR African American 111.5 (>60); EGFR Non-African American 92.1 (>60); Globulin 2.7 g/dL (2-4); Total Protein 7.4 g/dL (6.4-8.9)
[2019-04-22 16:56] LABS: Urine Benzodiazepine Screen None Detected (None Detect); Urine Opiates Screen None Detected (None Detect)
[2019-04-22 18:12] LABS: Alcohol < 10 mg/dL (<10); Salicylate < 2.50 mg/dL (<30)
[2019-04-22 18:59] LABS: Acetaminophen < 15 mcg/mL
[2019-04-22 19:25] LABS: TSH (Thyroid Stimulating Horm) 1.81 mcIU/mL (0.34-5.60)
[2019-04-22] MEDS ORDERED: Acetaminophen TAB* 325 MG PO PRN (21:22)
[2019-04-22] MEDS ORDERED: Al Hydrox/Mg Hydrox/Simet LIQ* 30 ML UDC PO PRN (21:22)
[2019-04-23 08:30] LABS: HDL Cholesterol 48.3 mg/dL
[2019-04-23] MEDS: Vitamin THERAPEUTIC TAB PO SCH (09:18)
--- NOTE | 2019-04-23 10:14 | HP ---
H&P (Free Text) History and Physical: Justification for admission: Immediate Safety. CC " I wanted immediate access to my money" The patient was brought to [facility] by EMS. Patient reported getting into a argument with his payee and that the [place] police told him to come to the hospital. He reported not drinking alcohol since 3 weeks ago and denied having tremors, seizures. He wrote 20 pages of letters last night. He reported needing to leave the hospital because he is on a TV show on channel 13 on nights. He expressed that the mental health system has treated him unfairly and that he should have access to his funds. He denied access to firearms or stockpiles of medications. He reported having poor sleep and said that he has no changes in his appetite. He reported having a 20lbs weight loss in the last 6 months. The patient denied suicidal and or homicidal ideation intent or plan. The patient denied auditory and/ or visual hallucinations. Psychosis He reported that a person in the [place] continues to follow him around bother him and shows up at his place asking to give him $20. Does not endorse hearing things that other people do not hear or seeing things other people do not see. Denied feeling that TV is making references. Bipolar Patient reported that he has a TV show. He has increased talkativeness where it is difficult to interrupt. He reported feeling irritable. Recently he has had an increase in intensity in goal directed activities. Reported the decreased need to sleep much. He reported having increased sexual libido. MDD Denied feeling depressed. Denied having diminished interests which were found to be enjoyable in the past. Denied having crying spells , feeling empty inside , feelings of hopelessness , and worthlessness. Denied interruption of sleep , or feeling tired throughout the day. Denied loss of energy or lack of motivation to complete tasks. Denied overwhelming feelings of guilt or decreased concentration. Denied recurrent thoughts of . Denied thoughts that they would be better off . Anxiety Denied having symptoms of anxiety such as having times where heart feels that it is beating out of chest , sweaty palms, or shallow breathing. Denied having uncomfortable or intrusive thoughts. Denied feeling restless, high strung, or worrying too much most of the time. Phobias: Patient denied having excessive fear of a particular thing or situation. Eating disorders: Patient denied having excessive eating habits or feelings of guilt after eating. Denied repeated episodes of self induced vomiting after eating. PTSD Denied flashbacks, nightmares and avoidance of a prior traumatic event. PAST PSYCHIATRIC HISTORY: Prior Diagnosis : Schizoaffective disorder, alcohol use disorder History of past Psychiatric Hospitalizations: 4 prior psychiatric hospitalization at [facility]. Last admission in 2012. Patient was recently on the medical floor being treated for alcohol withdrawal. History of past suicide/homicide attempts : Denied past suicide attempts. Denied past homicidal incidents. Outpatient follow-up: [facility] Medications: Past trials of medications include latuda, lexapro, risperdal. Per patient stopped taking all medications a year ago. Guardianship: None. FAMILY HISTORY: - Suicide: His sister survived a suicide attempt by hanging and required to be cut down - Mental illness: Sister depression - Substance abuse: Mother from alcoholism. SUBSTANCE ABUSE HISTORY: - EtOH: 30 year history of drinking alcohol. He drank up to 1 liter of liquor daily, has had DTs in the past, Currently sober since 3 weeks ago. - Tobacco: Denied - Cannabis: Uses daily - Heroin: Denied - Cocaine: Denied - Substance abuse treatment: [facility] drug and alcohol program SOCIAL HISTORY: Currently lives alone in [facility]. He is single never and attended some college. 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 - Legal history: In [facility] skilled nursing for 6 months for disorderly conduct and destruction of property - service history: Denied PAST MEDICAL HISTORY: History of delirium tremens. - Allergies: Prolixin Physical Exam: Please see ED note Mental Status Exam on Admission APPEARANCE : 53 year old who appears stated age. Patient is disheveled. BEHAVIOR: restless EYE CONTACT: Fair PSYCHOMOTOR ACTIVITY: No psychomotor agitation or retardation. MOVEMENTS: No abnormal movements observed. SPEECH : Hyper verbal MOOD : " Upset " AFFECT : Type elevated Mood Congruent THOUGHT PROCESS: flight of ideas , loose associations , circumstantial THOUGHT CONTENT: Grandiose PERCEPTION: No current auditory or visual hallucinations. Doesnt appear to be responding to internal cues. SUICIDALITY Denied suicidal ideation, intent or plan. HOMICIDALITY Denied homicidal ideation, intent or plan. Insight/judgment: Poor insight and judgment ORIENTATION: Oriented to self, location, and time. Diagnosis on Admission: Schizoaffective disorder, bipolar type. Alcohol use disorder. Assessment: 53 year old male with history of schizoaffective disorder came to the hospital with psychotic features and was admitted to the BSU at [facility]. Plan #Admit to BSU, Q15 minute observation. Start regular diet. Encourage participation in activities on the milieu. #Patient evaluated in ED and was determined by the emergency room Physician to be medically fit for admission to the BSU. # Justification for Admission: For immediate safety per outlined in the [facility] Code. # The patient requires psychiatric inpatient admission at this time to assure safety, receive treatment and work toward stabilization. # Labs ordered: CBC, CMP, UDS, TSH, HBA1c, TSH, Toxicology screen, Urine analysis, and lipid profile. # EKG ordered for risk of QT prolongation of antipsychotic medication. # Obtain collateral information obtained from his therapist Abhi Golden indicate increased manic features such irritability, sleep appetite and self care. # Collaboration with Machine Shop Repair Technician Sandhya Lima # WAM discontinued - no active signs of withdrawal and last drink was 3 weeks ago. #Start invega 6mg daily for psychosis plan to establish tolerability and offer invega long acting monthly injectable. Patient had liver injury in the past from chronic alcohol abuse. Invega is good choice for the patient being it is the only long acting AP not metabolized by the liver. # Invega initiation dose 234mg IM long acting injection scheduled for tomorrow. Substance Abuse resources offered. He plans to continue AA. #Goals before discharge include: To eliminate/ reduce psychotic features. The risks, benefits, and alternative treatment options were discussed as well as of the risks of refusing treatment. After this discussion and an acknowledgement of this understanding was made. A risk/ benefit assessment of treatment was considered and discussed with the patient. When comparing the risks of treatment with the dangers of not receiving treatment, the benefits of treatment outweigh the treatment risks at this time. Risks of allergy, suicidal ideation, behavioral changes, dystonia, rashes, electrolyte imbalances, movement disorders, cardiac conduction changes, serotonin syndrome, metabolic risks and NMS were among some of the risks discussed. Sodium 137 mmol/L (135-145) 04/22/19 16:13 Potassium 4.1 mmol/L (3.5-5.0) 04/22/19 16:13 BUN 12 mg/dL (6-24) 04/22/19 16:13 Creatinine 0.87 mg/dL (0.67-1.17) 07/17/19 16:13 Hemoglobin A1c 5.5 % (4.0-5.6) 04/23/19 07:00 Calcium 9.8 mg/dL (8.6-10.3) 04/22/19 16:13 AST 14 U/L (13-39) 04/22/19 16:13 ALT 16 U/L (7-52) 04/22/19 16:13 Triglycerides 91 mg/dL 04/23/19 07:00 Cholesterol 185 mg/dL 04/23/19 07:00 LDL Cholesterol 119 mg/dL 04/23/19 07:00 Vital Signs Temp Pulse Resp BP Pulse Ox 97.7 F 64 16 142/81 100 04/23/19 08:08 04/23/19 08:08 04/23/19 08:08 04/23/19 08:08 04/23/19 08:08 Acetaminophen (Tylenol Tab*) 650 mg PO Q4H PRN PRN Reason: PAIN or TEMP > 101 F Al Hydrox/Mg Hydrox/Simethicone (Maalox Plus*) 30 ml PO Q4H PRN PRN Reason: INDIGESTION Folic Acid (Folvite Tab*) 1 mg PO DAILY [facility] Multivitamins (Theragran Tab*) 1 tab PO DAILY [facility] Last Admin: 04/23/19 09:18 Dose: Not Given Multivitamins/Minerals (Theragran/Minerals Tab*) 1 tab PO DAILY [facility] Paliperidone (Invega Er Tab*) 6 mg PO DAILY [facility] Thiamine HCl (Vitamin B-1 Tab*) 100 mg PO DAILY [facility]
[2019-04-23] MEDS ORDERED: LORazepam TAB(*) 1 MG PO SCH (11:00)
[2019-04-23] MEDS ORDERED: Paliperidone ER TAB* 6 MG TAB.ER PO SCH (12:00)
[2019-04-23] MEDS: Multivitamins/Minerals TAB PO SCH (12:55)
[2019-04-23] MEDS: Thiamine TAB* 100 MG TAB PO SCH (12:55)
[2019-04-23] MEDS: Folic Acid TAB* 1 MG PO SCH (12:55)
[2019-04-23] MEDS ORDERED: Paliperidone SUSTENNA* 234 MG/1.5 ML IM ONE (15:56)
[2019-04-24] MEDS ORDERED: LORazepam TAB(*) 0.5 MG PO PRN (08:54)
[2019-04-24] MEDS: Multivitamins/Minerals TAB PO SCH (10:40)
[2019-04-24] MEDS: Folic Acid TAB* 1 MG PO SCH (10:40)
[2019-04-24] MEDS: Thiamine TAB* 100 MG TAB PO SCH (10:40)
[2019-04-24] MEDS: Vitamin THERAPEUTIC TAB PO SCH (10:40)
--- NOTE | 2019-04-24 11:56 | PN ---
Subjective - Subjective Date of Service: 04/24/19 Service Type: 31696 Hosp care 35 min high complexity Subjective: Nursing Report: Patient was visible on unit, no chemical restraints or behavioral incidents reported. Patient didnot sleep much overnight. He is attending group activities. CC: "Fine" Patient was seen and evaluated in the common room. The patient reported he feels that he doesnt like how people can comment on his writing and sleep. He reported he wants to leave because he has a talk show. He denied fever muscle stiffness, nausea, vomiting. He reported having adequate appetite. He reported good sleep however staff reported otherwise. The patient reports attending and participating in day groups. Per nursing no behavioral issues or overnight events reported. Patient reported that he is tolerating medications without side effects. Objective - General Observations Appearance: Neat Appears Stated Age: Yes Stature: Thin Posture: Tense Eye Contact: Intense Behavior/Activity: Accelerated - Interaction Observations Attitude Towards Examiner: Defensive, Mistrustful Stated Mood: Anxious Affect: Blunted, Bright Speech Pattern/Tone: Rambling, Excessive Thought Process: Over Inclusive Perception: WNL Thought Content: Paranoid Thought Process: Lethality: Paranoid Ideation Hallucination Type: Denies Delusion Type: Grandeur - Cognitive Function Orientation: A&O x 4 Level of Consciousness: Awake - Medication Compliance Cooperative with Inpatient Medication Regimen: Yes - Group Participation Participates in Group Activities: Yes Assessment - Assessment Merits Inpatient Hospitalization: For Immediate Safety Clinical Impression: 53 year old male with history of schizoaffective disorder came to the hospital with psychotic features and was admitted to the [facility] at [facility]. Plan - Plan Treatment Plan: Name: RENARD SYED Birthdate: 1965 [id number] #Q15 minute observation. # The patient requires psychiatric inpatient admission at this time to assure safety, receive treatment and work toward stabilization. # EKG ordered for risk of QT prolongation of antipsychotic medication. # Obtain collateral information obtained from his therapist Abhi Golden indicate increased manic features such irritability, sleep appetite and self care. # Collaboration with Nursing Informatics Analyst Sandhya Lima # WAM discontinued - no active signs of withdrawal and last drink was 3 weeks ago. # Patient showed liver injury in the past from chronic alcohol abuse. Invega is good choice for the patient being it is the only long acting AP not metabolized by the liver. # Invega initiation dose 234mg IM long acting injection scheduled given on 04/23/19 without complication # Invega 156mg long acting planed to give on Saturday04/27/19. Substance Abuse resources offered. He plans to continue AA. #Goals before discharge include: To eliminate/ reduce psychotic features. Sodium 137 mmol/L (135-145) 04/22/19 16:13 Potassium 4.1 mmol/L (3.5-5.0) 04/22/19 16:13 BUN 12 mg/dL (6-24) 04/22/19 16:13 Creatinine 0.87 mg/dL (0.67-1.17) 04/22/19 16:13 Hemoglobin A1c 5.5 % (4.0-5.6) 04/23/19 07:00 Calcium 9.8 mg/dL (8.6-10.3) 04/22/19 16:13 AST 14 U/L (13-39) 04/22/19 16:13 ALT 16 U/L (7-52) 04/22/19 16:13 Triglycerides 91 mg/dL 04/23/19 07:00 Cholesterol 185 mg/dL 04/23/19 07:00 LDL Cholesterol 119 mg/dL 04/23/19 07:00 Vital Signs Temp Pulse Resp BP Pulse Ox 97.7 F 85 16 121/79 100 04/24/19 08:00 04/24/19 08:00 04/24/19 08:00 04/24/19 08:00 04/24/19 08:00 Continued Medication Management: Start Medication Medications: Current Medications Acetaminophen (Tylenol Tab*) 650 mg PO Q4H PRN PRN Reason: PAIN or TEMP > 101 F Al Hydrox/Mg Hydrox/Simethicone (Maalox Plus*) 30 ml PO Q4H PRN PRN Reason: INDIGESTION Folic Acid (Folvite Tab*) 1 mg PO DAILY [facility] Last Admin: 04/24/19 10:40 Dose: Not Given Lorazepam (Ativan Tab(*)) 0.5 mg PO Q4H PRN PRN Reason: ANXIETY Multivitamins (Theragran Tab*) 1 tab PO DAILY [facility] Last Admin: 04/24/19 10:40 Dose: Not Given Multivitamins/Minerals (Theragran/Minerals Tab*) 1 tab PO DAILY [facility] Last Admin: 04/24/19 10:40 Dose: Not Given Paliperidone Palmitate (Invega Sustenna*) 156 mg IM ONCE ONE Stop: 04/27/19 09:01 Thiamine HCl (Vitamin B-1 Tab*) 100 mg PO DAILY [facility] Last Admin: 04/24/19 10:40 Dose: Not Given - Discharge Plan Discharge Plan: Inpatient Hospitalization Outpatient Program: [facility]
--- NOTE | 2019-04-24 13:51 | PN ---
BSU: Group Therapy Note - Service Type Service Type: [id number] Group Psychotherapy - Cognitive Behavioral Group Note: Greg vascillated between being negative and complaining about staff and unit and being affable and engaging. He initially demanded being afforded the opportunity to watch more tv, but eventually accpeted redirection. He had difficulty this morning remaining on topic, but described appreciation for having the opportunity to discuss thoughts and feelings.
[2019-04-25] MEDS: Vitamin THERAPEUTIC TAB PO SCH (09:12)
[2019-04-25] MEDS: Folic Acid TAB* 1 MG PO SCH (09:12)
[2019-04-25] MEDS: Thiamine TAB* 100 MG TAB PO SCH (09:12)
[2019-04-25] MEDS: Multivitamins/Minerals TAB PO SCH (09:12)
--- NOTE | 2019-04-25 16:21 | PN ---
Subjective - Subjective Date of Service: 04/25/19 Service Type: 11695 Hosp care 25 min moderate complexity Subjective: Greg requested to see this check writer salesperson and wanted to know if he could have a staff pass. Then strted talking about his frustration with his rep-payee who didn't give him money for emmergency ( food ). He spent all his allounces for marijuana and then didn't have money to by groceries. He then went to the clinic to be abusive towards staffs there. He appears to be restless and pacing a lot. Says he is experiencing sexual side effects ( unable musterbate ). Otherwise denies hallucinations, delusions or SI/HI. Objective - General Observations Appearance: Disheveled, Malodorous, Unkempt Appears Stated Age: Yes Stature: WNL Posture: WNL Eye Contact: Avoidant Behavior/Activity: Accelerated - Interaction Observations Attitude Towards Examiner: Evasive Stated Mood: Dysphoric Affect: Restricted Speech Pattern/Tone: Clear, Appropriate, Normal Volume Thought Process: Circumstantial Thought Content: Preoccupation/Ruminations, Paranoid Hallucination Type: Denies Delusion Type: Denies - Cognitive Function Orientation: A&O x 4 Level of Consciousness: Awake, Alert, Appropriate Cognition: WNL Estimated Intelligence: Normal Insight: Mostly Blames Others for Problems - Medication Compliance Cooperative with Inpatient Medication Regimen: Yes - Group Participation Participates in Group Activities: No Assessment - Assessment Merits Inpatient Hospitalization: For Immediate Safety, For Stabilization, For Discharge Planning Clinical Impression: 53 year old male with history of schizoaffective disorder came to the hospital with psychotic features and was admitted to the B[facility] at [facility]. Plan - Plan Treatment Plan: Name: GREG SYED Birthdate: 1965 [id number] #Q15 minute observation. # The patient requires psychiatric inpatient admission at this time to assure safety, receive treatment and work toward stabilization. # EKG ordered for risk of QT prolongation of antipsychotic medication. # Obtain collateral information obtained from his therapist Abhi Golden indicate increased manic features such irritability, sleep appetite and self care. # Collaboration with Hi Teacher Sandhya Lima # WAM discontinued - no active signs of withdrawal and last drink was 3 weeks ago. # Patient showed liver injury in the past from chronic alcohol abuse. Invega is good choice for the patient being it is the only long acting AP not metabolized by the liver. # Invega initiation dose 234mg IM long acting injection scheduled given on 04/23/19 without complication # Invega 156mg long acting planed to give on Saturday04/27/19. Substance Abuse resources offered. He plans to continue AA. #Goals before discharge include: To eliminate/ reduce psychotic features. Sodium 137 mmol/L (135-145) 04/22/19 16:13 Potassium 4.1 mmol/L (3.5-5.0) 04/22/19 16:13 BUN 12 mg/dL (6-24) 04/22/19 16:13 Creatinine 0.87 mg/dL (0.67-1.17) 04/22/19 16:13 Hemoglobin A1c 5.5 % (4.0-5.6) 04/23/19 07:00 Calcium 9.8 mg/dL (8.6-10.3) 04/22/19 16:13 AST 14 U/L (13-39) 04/22/19 16:13 ALT 16 U/L (7-52) 04/22/19 16:13 Triglycerides 91 mg/dL 04/23/19 07:00 Cholesterol 185 mg/dL 04/23/19 07:00 LDL Cholesterol 119 mg/dL 04/23/19 07:00 Vital Signs Temp Pulse Resp BP Pulse Ox 97.7 F 85 16 121/79 100 04/24/19 08:00 04/24/19 08:00 04/24/19 08:00 04/24/19 08:00 04/24/19 08:00 Continued Medication Management: Continue Outpt Medication Medications: Current Medications Acetaminophen (Tylenol Tab*) 650 mg PO Q4H PRN PRN Reason: PAIN or TEMP > 101 F Al Hydrox/Mg Hydrox/Simethicone (Maalox Plus*) 30 ml PO Q4H PRN PRN Reason: INDIGESTION Folic Acid (Folvite Tab*) 1 mg PO DAILY [facility] Last Admin: 04/25/19 09:12 Dose: 1 mg Lorazepam (Ativan Tab(*)) 0.5 mg PO Q4H PRN PRN Reason: ANXIETY Last Admin: 04/25/19 01:14 Dose: 0.5 mg Multivitamins (Theragran Tab*) 1 tab PO DAILY [facility] Last Admin: 04/25/19 09:12 Dose: Not Given Multivitamins/Minerals (Theragran/Minerals Tab*) 1 tab PO DAILY [facility] Last Admin: 04/25/19 09:12 Dose: 1 tab Paliperidone Palmitate (Invega Sustenna*) 156 mg IM ONCE ONE Stop: 04/27/19 09:01 Thiamine HCl (Vitamin B-1 Tab*) 100 mg PO DAILY [facility] Last Admin: 04/25/19 09:12 Dose: 100 mg - Discharge Plan Discharge Plan: Outpatient Follow Up Outpatient Program: [facility]
[2019-04-26] MEDS: Thiamine TAB* 100 MG TAB PO SCH (09:24)
[2019-04-26] MEDS: Vitamin THERAPEUTIC TAB PO SCH (09:24)
[2019-04-26] MEDS: Folic Acid TAB* 1 MG PO SCH (09:24)
[2019-04-26] MEDS: Multivitamins/Minerals TAB PO SCH (09:24)
[2019-04-27 08:22] VITALS: BP 141/87
[2019-04-27] MEDS ORDERED: Paliperidone SUSTENNA* 156 MG/1 ML IM ONE ×2 (09:00→15:57)
[2019-04-27] MEDS: Thiamine TAB* 100 MG TAB PO SCH (09:38)
[2019-04-27] MEDS: Folic Acid TAB* 1 MG PO SCH (09:38)
[2019-04-27] MEDS: Multivitamins/Minerals TAB PO SCH (09:38)
--- NOTE | 2019-04-27 10:30 | DS ---
Subjective - Subjective Service Types: [id number] [facility] Day Mgmt complex over 30 min Discharge Date: 04/27/19 Subjective: CC: " I am better" Patient looks forward to going to work at [employer]. The patient was seen and evaluated before discharge today. The patient reported having adequate appetite and sleep. The patient reports attending and participating in day groups. Per nursing no behavioral issues or overnight events reported. Patient reported tolerating medications without side effects. He received a invega long acting injection without complication before discharge today. Justification for admission: Immediate Safety. CC " I wanted immediate access to my money" The patient was brought to [facility] by EMS. Patient reported getting into a argument with his payee and that the [place] police told him to come to the hospital. He reported not drinking alcohol since 3 weeks ago and denied having tremors, seizures. He wrote 20 pages of letters last night. He reported needing to leave the hospital because he is on a TV show on channel 13 on nights. He expressed that the mental health system has treated him unfairly and that he should have access to his funds. He denied access to firearms or stockpiles of medications. He reported having poor sleep and said that he has no changes in his appetite. He reported having a 20lbs weight loss in the last 6 months. The patient denied suicidal and or homicidal ideation intent or plan. The patient denied auditory and/ or visual hallucinations. Psychosis He reported that a person in the [place] continues to follow him around bother him and shows up at his place asking to give him $20. Does not endorse hearing things that other people do not hear or seeing things other people do not see. Denied feeling that TV is making references. Bipolar Patient reported that he has a TV show. He has increased talkativeness where it is difficult to interrupt. He reported feeling irritable. Recently he has had an increase in intensity in goal directed activities. Reported the decreased need to sleep much. He reported having increased sexual libido. MDD Denied feeling depressed. Denied having diminished interests which were found to be enjoyable in the past. Denied having crying spells , feeling empty inside , feelings of hopelessness , and worthlessness. Denied interruption of sleep , or feeling tired throughout the day. Denied loss of energy or lack of motivation to complete tasks. Denied overwhelming feelings of guilt or decreased concentration. Denied recurrent thoughts of . Denied thoughts that they would be better off . Anxiety Denied having symptoms of anxiety such as having times where heart feels that it is beating out of chest , sweaty palms, or shallow breathing. Denied having uncomfortable or intrusive thoughts. Denied feeling restless, high strung, or worrying too much most of the time. Phobias: Patient denied having excessive fear of a particular thing or situation. Eating disorders: Patient denied having excessive eating habits or feelings of guilt after eating. Denied repeated episodes of self induced vomiting after eating. PTSD Denied flashbacks, nightmares and avoidance of a prior traumatic event. PAST PSYCHIATRIC HISTORY: Prior Diagnosis : Schizoaffective disorder, alcohol use disorder History of past Psychiatric Hospitalizations: [place] prior [place] [facility]. Patient was recently on the medical floor being treated for alcohol withdrawal. History of past suicide/homicide attempts : Denied past suicide attempts. Denied past homicidal incidents. Outpatient follow-up: [facility] Medications: Past trials of medications include latuda, lexapro, risperdal. Per patient stopped taking all medications a year ago. Guardianship: None. FAMILY HISTORY: - Suicide: His sister survived a suicide attempt by hanging and required to be cut down - Mental illness: Sister depression - Substance abuse: Mother from alcoholism. SUBSTANCE ABUSE HISTORY: - EtOH: 30 year history of drinking alcohol. He drank up to 1 liter of liquor daily, has had DTs in the past, Currently sober since 3 weeks ago. - Tobacco: Denied - Cannabis: Uses daily - Heroin: Denied - Cocaine: Denied - Substance abuse treatment: [facility] drug and alcohol program SOCIAL HISTORY: Currently lives alone in [facility]. He is single never and attended some college. 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 - Legal history: In [facility] for 6 months for disorderly conduct and destruction of property - service history: Denied PAST MEDICAL HISTORY: History of delirium tremens. - Allergies: Prolixin Physical Exam: Please see ED note Mental Status Exam on Admission APPEARANCE : 53 year old who appears stated age. Patient is disheveled. BEHAVIOR: restless EYE CONTACT: Fair PSYCHOMOTOR ACTIVITY: No psychomotor agitation or retardation. MOVEMENTS: No abnormal movements observed. SPEECH : Hyper verbal MOOD : " Upset " AFFECT : Type elevated Mood Congruent THOUGHT PROCESS: flight of ideas , loose associations , circumstantial THOUGHT CONTENT: Grandiose PERCEPTION: No current auditory or visual hallucinations. Doesnt appear to be responding to internal cues. SUICIDALITY Denied suicidal ideation, intent or plan. HOMICIDALITY Denied homicidal ideation, intent or plan. Insight/judgment: Poor insight and judgment ORIENTATION: Oriented to self, location, and time. Diagnosis on Admission: Schizoaffective disorder, bipolar type. Alcohol use disorder. Diagnosis on Discharge: Schizoaffective disorder, bipolar type. Alcohol use disorder. Condition at the time of discharge: At the time of discharge patient showed improvement of sleep and appetite. The patient was not a danger to self or others. The patient denied suicidal ideation , intent or plan. The patient denied homicidal targets, ideation, intent or plan. This patient participated in psychosocial rehabilitation and gained some insight into problems. The patient gained insight into mental illness, triggers, and treatment. The patient took medication as prescribed. The patient denied side effects of medication and objective signs of side effects were not evident. Therapy Resources were offered to the patient. Patient was given a long acting invega injection at the time of discharge. The patient plans to attend follow up care with the follow up arrangements that were discussed and put in place. Patient was asked to keep appointments as scheduled, take medication as prescribed, have routine follow up care with their primary care physician and refrain from any use of alcohol or drugs. Objective - General Observations Appearance: Neat Appears Stated Age: Yes Stature: Thin Posture: WNL Eye Contact: Average, Intense Behavior/Activity: WNL - Interaction Observations Attitude Towards Examiner: Cooperative Stated Mood: Euthymic Affect: Blunted Speech Pattern/Tone: Clear Thought Process: Coherent Perception: WNL Thought Content: WNL Hallucination Type: None Delusion Type: None - Cognitive Function Orientation: A&O x 4 Level of Consciousness: Awake - Medication Compliance Cooperative with Inpatient Medication Regimen: Yes - Group Participation Participates in Group Activities: Yes Treatment Course & Assessment Clinical Course & Impression: Hospital course part A: 53 year old male with history of schizoaffective disorder came to the hospital with psychotic features and was admitted to the BSU at [facility]. Hospital course part B: Labs ordered included CBC, CMP, UDS, TSH, HBA1c, TSH, Toxicology screen, Urine analysis, and lipid profile. Labs were reviewed and did not require the need for further evaluation. Vital signs were monitored during the course of admission. EKG ordered for risk of QT prolongation of antipsychotic medication. EKG was reviewed and no abnormal findings were present The patient was admitted to the adult behavioral unit and placed on 15 minute check for safety. At a later time the patient was on Q30 minute observation. With those limits being extended , there were no occurrence of behavioral incidents. The patient did well on the unit and went to groups. Interacted with peers had adequate sleep and regular appetite. Tolerated medication changes without side effects. Group therapy and services were offered. The risks , benefits, and alternative treatment options were discussed as well as of the risks of refusing treatment. Treatment associated risks discussed. After this discussion made an acknowledgement of this understanding. Follow up care appointments were put in place for follow up care. The importance of monitoring for metabolic changes was discussed and acknowledgement of this understanding was made. Patient informed not to abruptly stop or start new medications before consulting with a medical professional. Improvements in patient from the time of admission include: Improved affect, sleep and decrease in anxiety. He was no longer having feelings of hopelessness. The patient expressed readiness for discharge home. The patient presents with a broader range of affect, and the absence of depressed mood, delusions, perceptual disturbances. The patient denied suicidal and or homicidal ideation intent or plan. Overall, the patient responded well to inpatient treatment as evidenced by their report of strengthening of coping mechanisms, reduced distress, and more positive outlook on circumstances. Of note there was an improvement of recognizing how emotional state can effect mood and behavior. Safety precautions were put in place which included involving the patient and their family to closely monitor for changes in mental state. In addition, implementing follow up care, screening for the need to remove/securing firearms , weapons and stockpile of medications. Patient/ family instructed to immediately call 911 should any safety concerns arise. AIMS was performed and insignificant for involuntary movement disorders. The patient was advised of the 24 hour / 7 days a week availability of the emergency room and to call 911 in the event of an emergency such as being suicidal and/ or homicidal. The patient was informed of the contact information for [facility], Suicide Prevention and Crisis Services, National Suicide Prevention Lifeline, [facility], Alcoholics Anonymous, and [facility]. Medications started included invega 6mg daily for psychosis plan to establish tolerability. Patient had liver injury in the past from chronic alcohol abuse. Invega is good choice for the patient being it is the only long acting AP not metabolized by the liver. Invega initiation dose 234mg IM long acting injection given on 04/23/19 without complication next 05/28/19 Invega 156mg long acting injection received on Saturday04/27/19 without complication. WAM protocol was initiated and discontinued after he did not have signs of alcohol withdrawal. Patient was less hyper-verbal and has improvement of frustration tolerance. Substance Abuse resources and medications offered and he declined. He plans to continue AA. Patient had developed insight and understood that how not taking his medications can cause changes in his behavior. Patient has limited support system and no family was available to involve in his plan of care or to obtain collateral. His out patient therapist Abhi Golden was contacted and Mary Kay from [facility] described the patients baseline functioning and that the patient is at his baseline. He was notified of the resources available in the event these situations arise. Patient was not assaultive or a behavioral problem during the course of admission. The patient showed improvement of hygiene and was able to carry out activities of daily living. Patient will be discharged to live at home. Follow up appointment at [facility] Patient informed of follow up appointment times. See more details for follow up care in the discharge plan. Risk factors: , Age, single, history of mental illness, limited support system. Prior history of alcohol abuse. Protective factors: Currently no suicidal ideation, intent or plan. No prior history of suicide attempt. No history of service. Currently no feelings of hopelessness, not in an occupation of social isolation, doesnt have multiple medical conditions, no family history of suicide, doesnt have access to firearms. Doesnt have command hallucinations and or psychotic features at this time. No current substance abuse. 4 weeks sober from alcohol. Not an anniversary of a loss of a loved one. No changes in relationship status, housing, job, or school. Currently future orientated. Patient engaged in treatment and compliant with medication. Sodium 137 mmol/L (135-145) 04/22/19 16:13 Potassium 4.1 mmol/L (3.5-5.0) 04/22/19 16:13 BUN 12 mg/dL (6-24) 04/22/19 16:13 Creatinine 0.87 mg/dL (0.67-1.17) 04/22/19 16:13 Hemoglobin A1c 5.5 % (4.0-5.6) 04/23/19 07:00 Calcium 9.8 mg/dL (8.6-10.3) 04/22/19 16:13 AST 14 U/L (13-39) 04/22/19 16:13 ALT 16 U/L (7-52) 04/22/19 16:13 Triglycerides 91 mg/dL 04/23/19 07:00 Cholesterol 185 mg/dL 04/23/19 07:00 LDL Cholesterol 119 mg/dL 04/23/19 07:00 Vital Signs Temp Pulse Resp BP Pulse Ox 97.8 F 87 16 141/87 100 04/27/19 08:22 04/27/19 08:22 04/27/19 08:22 04/27/19 08:22 04/27/19 08:22 Merits Inpatient Hospitalization: No Clear for Discharge: Adequate Clinical Respons Discharge Planning - Discharge Planning Discharge Plan: Outpatient Follow Up Out[facility] Recommendations for Continuing Care: Medication Management Medications: Current Medications Acetaminophen (Tylenol Tab*) 650 mg PO Q4H PRN PRN Reason: PAIN or TEMP > 101 F Al Hydrox/Mg Hydrox/Simethicone (Maalox Plus*) 30 ml PO Q4H PRN PRN Reason: INDIGESTION Folic Acid (Folvite Tab*) 1 mg PO DAILY DANISH Last Admin: 04/27/19 09:38 Dose: 1 mg Lorazepam (Ativan Tab(*)) 0.5 mg PO Q4H PRN PRN Reason: ANXIETY Last Admin: 04/25/19 01:14 Dose: 0.5 mg Multivitamins (Theragran Tab*) 1 tab PO DAILY [facility] Last Admin: 04/26/19 09:24 Dose: Not Given Multivitamins/Minerals (Theragran/Minerals Tab*) 1 tab PO DAILY [facility] Last Admin: 04/27/19 09:38 Dose: 1 tab Thiamine HCl (Vitamin B-1 Tab*) 100 mg PO DAILY [facility] Last Admin: 04/27/19 09:38 Dose: 100 mg Discharge Planning: Prescriptions provided for discharge [] Yes [x] No Long acting AP injection was given Follow up care details as per social work arrangements. Patient response to discharge plan: [x] eager for discharge [] agreeable with discharge plan [] ambivalent about discharge [] disagrees with discharge today
== END 2019-04-27 11:25 | disposition home or self-care (01) | DRG 885 ==
LOC: ED 15:37 → BSU 19:04
PROVIDERS: ADMIT Psychiatry & Neurology Psychiatry; ATTEND Psychiatry & Neurology Psychiatry
PROC: GZHZZZZ Group Psychotherapy (ICD-10-PCS; principal; 2019-04-24)
DX: F25.0 Schizoaffective disorder, bipolar type (principal); Z81.8 Family history of other mental and behavioral disorders; Z81.1 Family history of alcohol abuse and dependence; Z72.89 Other problems related to lifestyle; Z88.8 Allergy status to other drugs, medicaments and biological substances; Z86.010 Personal history of colon polyps
CPT/HCPCS: 36415; 80053; 80061; 80307; 80320; 80329; 81003; 81015; 83036; 84443; 85025; 87086; 90853; 93005; 99222; 99232; 99233; 99238; 99284; A9270-GY; G0480

== ENCOUNTER 2019-10-20 09:17 | Emergency (ER) | payer MEDICARE, MEDICAID ==
[2019-10-20] MEDS ORDERED: LORazepam INJ* 2 MG/ML 1 ML VIAL IV ONE (09:38)
[2019-10-20] MEDS ORDERED: Thiamine INJ* 100 MG, Folic Acid IV* 1 MG, Multiple Vitamin IV ADULT* 10 ML in NS 0.9% ... IV ONE (09:40)
[2019-10-20] MEDS ORDERED: Lorazepam PYXIS KEY ONE (09:45)
[2019-10-20 10:11] LABS: ABS Lymphocytes 0.6 10^3/ul (1.0-4.8); ABS Monocytes 0.4 10^3/ul (0-0.8); ABS Neutrophils 5.1 10^3/ul (1.5-7.7); Eosinophil % 0.1 %; Hematocrit 37 % (42-52); Hemoglobin 12.8 g/dL (14.0-18.0); Mean Corpuscular HGB Conc 34 g/dL (31-36); Mean Corpuscular Hemoglobin 32 pg (27-31); Mean Corpuscular Volume 93 fL (80-94); Mean Platelet Volume 7.8 fL (7.4-10.4); Platelet Count 153 10^3/uL (150-450); Red Blood Count 4.02 10^6 /uL (4.18-5.48); Red Cell Distribution Width 15 % (10-15); White Blood Count 6.1 10^3/uL (3.5-10.8)
[2019-10-20 10:16] LABS: INR 0.92 (0.82-1.09)
[2019-10-20 10:21] LABS: Albumin 4.2 g/dL (3.2-5.2); Albumin/Globulin Ratio 1.8 (1-3); BUN/Creatinine Ratio 11.6 (8-20); Calcium 8.9 mg/dL (8.6-10.3); EGFR Non-African American 93.4 (>60); Globulin 2.4 g/dL (2-4); Magnesium 1.5 mg/dL (1.9-2.7); Potassium 3.8 mmol/L (3.5-5.0); Total Bilirubin 0.8 mg/dL (0.2-1.0); Total Protein 6.6 g/dL (6.4-8.9)
[2019-10-20] MEDS ORDERED: Bacitracin OINTMENT* 0.5% 0.5 oz TUBE TOPICAL ONE (11:34)
[2019-10-20 11:37] LABS: Urine Appearance Clear; Urine Bilirubin Negative (Negative); Urine Blood 1+ (Negative); Urine Color Yellow; Urine Glucose Negative (Negative); Urine Ketones 1+ (Negative); Urine Nitrite Negative (Negative); Urine Protein Negative (Negative); Urine Specific Gravity 1.012 (1.010-1.030); Urine Urobilinogen Negative (Negative)
[2019-10-20 11:44] LABS: Urine Bacteria Absent (Absent); Urine Red Blood Cell Trace(0-2/hpf) (Absent); Urine White Blood Cell Trace(0-5/hpf) (Absent)
[2019-10-20 12:01] LABS: Urine Benzodiazepine Screen None Detected (None Detect); Urine Opiates Screen None Detected (None Detect)
--- NOTE | 2019-10-20 12:35 | ED ---
Substance Abuse/Use - HPI Summary HPI Summary: This patient is a 53-year-old alcoholic male presenting to the ED with request for detox. Patient states he drinks a half a liter of whiskey and fortified beers daily and has for several years. He states he was seen in the ED 6 months ago and was admitted to the ICU, but was unsure why. He states he may have had a seizure. He has not had a seizure since that time and no previous history of seizures. Patient states his last drink was around 4 AM and he awoke at around 8 AM with bilateral tremors. He denies any sweats, nausea, vomiting, anxiety symptoms, tactile or auditory disturbances, no visual disturbances. He did endorse a moderately to severe headache upon awakening, but denies this currently. He did not take any medication prior to arrival. He does smoke marijuana daily which helps with his symptoms. He states he typically does not go into withdrawal symptoms for at least 12 hours and when he does he states it is usually a feeling of insomnia, without tremors or other withdrawal sxs. Pt also denies eating or drinking in the past few days d/t alcohol abuse. States has been on ativan. Does want to stay here for detox, but does not want to go to a treatment facility and does not wish to stay in the hospital over 1 day for his detox. - History Of Current Complaint Chief Complaint: EDSubstanceAbuse Stated Complaint: WITHDRAWAL SYMPTOMS PER EMS Time Seen by Provider: 10/20/19 09:32 Hx Obtained From: Patient Onset/Duration of Drug/ETOH Abuse: Years Ingestion History: Amount Ingested - 1/2 gallon of whiskey daily + 4-5 beers Overdose Characteristics: Oral Timing Of Abuse: Daily Severity Initially: Severe Severity Currently: Severe Aggravating Factor(s): Nothing Alleviating Factor(s): Nothing Associated Signs And Symptoms: Sleep Disturbance - Risk Factor(s) Completed Suicide Risk Factors: Male, [place] - Allergies/Home Medications Allergies/Adverse Reactions: Allergies Allergy/AdvReac Type Severity Reaction Status Date / Time fluphenazine [From Prolixin] Allergy Rash Verified 10/20/19 09:32 Home Medications: Home Medications Divalproex ER TAB(*) [Depakote ER TAB(*)] 500 mg PO BEDTIME 10/20/19 [History Confirmed 10/20/19] Ibuprofen TAB* [Advil TAB*] 200 mg PO Q6H PRN 10/20/19 [History Confirmed ] Paliperidone Palmitate [Invega Sustenna] 156 mg IM .[id number] 10/20/19 [History Confirmed 10/20/19] PMH/Surg Hx/FS Hx/Imm Hx Previously Healthy: Yes Endocrine/Hematology History: Denies: Hx Anticoagulant Therapy, Hx Diabetes, Hx Thyroid Disease Cardiovascular History: Denies: Hx Hypertension Respiratory History: Denies: Hx Asthma, Hx Chronic Obstructive Pulmonary Disease (COPD) GI History: Denies: Hx Ulcer Musculoskeletal History: Reports: Hx Tendonitis - Left shoulder Sensory History: Denies: Hx Contacts or Glasses, Hx Hearing Aid Opthamlomology History: Denies: Hx Contacts or Glasses Psychiatric History: Reports: Hx Inpatient Treatment, Hx Community Mental Health Tx, Hx Schizophrenia, Hx Bipolar Disorder, Hx Substance Abuse - etoh Denies: Hx Anxiety, Hx Attention Deficit Hyperactivity Disorder, Hx Eating Disorder, Hx Depression, Hx Panic Disorder, Hx Post Traumatic Stress Disorder, Hx Suicide Attempt, Hx of Violent Episodes Against Others - Surgical History Surgery Procedure, Year, and Place: COLON POLYPS REMOVED - Immunization History Hx Pertussis Vaccination: No Immunizations Up to Date: Yes Infectious Disease History: No Infectious Disease History: Reports: Hx Shingles Denies: Hx Hepatitis, Hx Human Immunodeficiency Virus (HIV), Hx of Known/ Suspected MRSA, Hx Tuberculosis, Hx Known/Suspected VRSA, Traveled Outside the [place] in Last 30 Days - Family History Known Family History: Positive: None - pt denies problems with heart, lungs, or joints in relatives - Social History Occupation: Unemployed Lives: Alone Alcohol Use: Daily Alcohol Amount: 1L whiskey a day Hx Substance Use: No Substance Use Type: Reports: Marijuana Substance Use Comment - Amount & Last Used: Daily Hx Tobacco Use: No Smoking Status (MU): Never Smoked Tobacco Review of Systems Negative: Fever, Chills, Fatigue, Skin Diaphoresis Negative: Palpitations, Chest Pain Negative: Cough Negative: Abdominal Pain, Vomiting Negative: Arthralgia, Myalgia Skin: Negative Neurological: Negative Positive: Other - tremors bilaterally All Other Systems Reviewed And Are Negative: Yes Physical Exam Triage Information Reviewed: Yes Vital Signs On Initial Exam: Initial Vitals Pulse BP Pulse Ox 87 155/96 97 10/20/19 09:25 10/20/19 09:25 10/20/19 09:25 Vital Signs Reviewed: Yes Appearance: Positive: Well-Appearing, Well-Nourished Skin: Positive: Warm, Skin Color Reflects Adequate Perfusion Eyes: Positive: EOMI, DIONY, Conjunctiva Clear Neck: Positive: Supple Respiratory/Lung Sounds: Positive: Clear to Auscultation, Breath Sounds Present Cardiovascular: Positive: RRR, Pulses are Symmetrical in both Upper and Lower Extremities. Negative: IRR, Tachycardia, Leg Edema Left, Leg Edema Right Abdomen Description: Positive: Nontender, No Organomegaly. Negative: CVA Tenderness (R), CVA Tenderness (L) Bowel Sounds: Positive: Present Musculoskeletal: Positive: Strength/ROM Intact Neurological: Positive: Other - tremors bilaterally. Negative: Slurred Speech Psychiatric: Positive: Affect/Mood Appropriate Procedures - Sedation Patient Received Moderate/Deep Sedation with Procedure: No Diagnostics - Vital Signs Vital Signs Temp Pulse Resp BP Pulse Ox 10/20/19 12:00 18 10/20/19 11:55 23 127/73 10/20/19 11:25 16 129/72 10/20/19 11:00 23 10/20/19 10:55 76 12 137/77 98 10/20/19 10:25 79 17 137/91 93 10/20/19 10:00 83 17 95 10/20/19 09:55 86 10 133/72 96 10/20/19 09:47 19 10/20/19 09:28 98.6 F 91 19 155/96 97 10/20/19 09:27 95 99 10/20/19 09:25 87 155/96 97 - Laboratory Lab Results: Lab Results 10/20/19 10/20/19 10/20/19 Range/Units 09:46 09:46 09:46 WBC 6.1 (3.5-10.8) 10^3/uL RBC 4.02 L (4.18-5.48) 10^6 /uL Hgb 12.8 L (14.0-18.0) g/dL Hct 37 L (42-52) % MCV 93 (80-94) fL MCH 32 H (27-31) pg MCHC 34 (31-36) g/dL RDW 15 (10-15) % Plt Count 153 (150-450) 10^3/uL MPV 7.8 (7.4-10.4) fL Neut % (Auto) 83.7 % Lymph % (Auto) 10.0 % [place]cal[place] % (Auto) 5.9 % Eos % (Auto) 0.1 % Baso % (Auto) 0.3 % Absolute Neuts (auto) 5.1 (1.5-7.7) 10^3/ul Absolute Lymphs (auto) 0.6 L (1.0-4.8) 10^3/ul Absolute Monos (auto) 0.4 (0-0.8) 10^3/ul Absolute Eos (auto) 0.0 (0-0.6) 10^3/ul Absolute Basos (auto) 0.0 (0-0.2) 10^3/ul Absolute Nucleated RBC 0.0 10^3/ul Nucleated RBC % 0.0 INR (Anticoag Therapy) 0.92 (0.82-1.09) Sodium 139 (135-145) mmol/L Potassium 3.8 (3.5-5.0) mmol/L Chloride 103 (101-111) mmol/L Carbon Dioxide 24 (22-32) mmol/L Anion Gap 12 H (2-11) mmol/L BUN 10 (6-24) mg/dL Creatinine 0.86 (0.67-1.17) mg/dL Est GFR ( Amer) 113.0 (>60) Est GFR (Non-Af Amer) 93.4 (>60) BUN/Creatinine Ratio 11.6 (8-20) Glucose 90 (70-100) mg/dL Lactic Acid (0.5-2.0) mmol/L Calcium 8.9 (8.6-10.3) mg/dL Magnesium 1.5 L (1.9-2.7) mg/dL Total Bilirubin 0.80 (0.2-1.0) mg/dL AST 71 H (13-39) U/L ALT 41 (7-52) U/L Alkaline Phosphatase 44 (34-104) U/L Ammonia (16-53) mcmol/L Total Protein 6.6 (6.4-8.9) g/dL Albumin 4.2 (3.2-5.2) g/dL Globulin 2.4 (2-4) g/dL Albumin/Globulin Ratio 1.8 (1-3) Urine Color Urine Appearance Urine pH (5-9) Ur Specific [place] (1.010-1.030) Urine Protein (Negative) Urine Ketones (Negative) Urine Blood (Negative) Urine Nitrate (Negative) Urine Bilirubin (Negative) Urine Urobilinogen (Negative) Ur Leukocyte Esterase (Negative) Urine WBC (Auto) (Absent) Urine RBC (Auto) (Absent) Urine Bacteria (Absent) Urine Glucose (Negative) Urine Opiates Screen (None Detect) Ur Barbiturates Screen (None Detect) Ur Phencyclidine Scrn (None Detect) Ur Amphetamines Screen (None Detect) U Benzodiazepines Scrn (None Detect) Urine Cocaine Screen (None Detect) U Cannabinoids Screen (None Detect) Serum Alcohol 16 H (<10) mg/dL 10/20/19 10/20/19 10/20/19 Range/Units 09:46 09:50 11:27 WBC (3.5-10.8) 10^3/uL RBC (4.18-5.48) 10^6 /uL Hgb (14.0-18.0) g/dL Hct (42-52) % MCV (80-94) fL MCH (27-31) pg MCHC (31-36) g/dL RDW (10-15) % Plt Count (150-450) 10^3/uL MPV (7.4-10.4) fL Neut % (Auto) % Lymph % (Auto) % [place]calfe % (Auto) % Eos % (Auto) % Baso % (Auto) % Absolute Neuts (auto) (1.5-7.7) 10^3/ul Absolute Lymphs (auto) (1.0-4.8) 10^3/ul Absolute Monos (auto) (0-0.8) 10^3/ul Absolute Eos (auto) (0-0.6) 10^3/ul Absolute Basos (auto) (0-0.2) 10^3/ul Absolute Nucleated RBC 10^3/ul Nucleated RBC % INR (Anticoag Therapy) (0.82-1.09) Sodium (135-145) mmol/L Potassium (3.5-5.0) mmol/L Chloride (101-111) mmol/L Carbon Dioxide (22-32) mmol/L Anion Gap (2-11) mmol/L BUN (6-24) mg/dL Creatinine (0.67-1.17) mg/dL Est GFR ( Amer) (>60) Est GFR (Non-Af Amer) (>60) BUN/Creatinine Ratio (8-20) Glucose (70-100) mg/dL Lactic Acid 2.0 (0.5-2.0) mmol/L Calcium (8.6-10.3) mg/dL Magnesium (1.9-2.7) mg/dL Total Bilirubin (0.2-1.0) mg/dL AST (13-39) U/L ALT (7-52) U/L Alkaline Phosphatase (34-104) U/L Ammonia 38 (16-53) mcmol/L Total Protein (6.4-8.9) g/dL Albumin (3.2-5.2) g/dL Globulin (2-4) g/dL Albumin/Globulin Ratio (1-3) Urine Color Yellow Urine Appearance Clear Urine pH 6.0 (5-9) Ur Specific [place] 1.012 (1.010-1.030) Urine Protein Negative (Negative) Urine Ketones 1+ A (Negative) Urine Blood 1+ A (Negative) Urine Nitrate Negative (Negative) Urine Bilirubin Negative (Negative) Urine Urobilinogen Negative (Negative) Ur Leukocyte Esterase Negative (Negative) Urine WBC (Auto) Trace(0-5/hpf) (Absent) Urine RBC (Auto) Trace(0-2/hpf) (Absent) Urine Bacteria Absent (Absent) Urine Glucose Negative (Negative) Urine Opiates Screen (None Detect) Ur Barbiturates Screen (None Detect) Ur Phencyclidine Scrn (None Detect) Ur Amphetamines Screen (None Detect) U Benzodiazepines Scrn (None Detect) Urine Cocaine Screen (None Detect) U Cannabinoids Screen (None Detect) Serum Alcohol (<10) mg/dL 10/20/19 Range/Units 11:27 WBC (3.5-10.8) 10^3/uL RBC (4.18-5.48) 10^6 /uL Hgb (14.0-18.0) g/dL Hct (42-52) % MCV (80-94) fL MCH (27-31) pg MCHC (31-36) g/dL RDW (10-15) % Plt Count (150-450) 10^3/uL MPV (7.4-10.4) fL Neut % (Auto) % Lymph % (Auto) % [place] % (Auto) % Eos % (Auto) % Baso % (Auto) % Absolute Neuts (auto) (1.5-7.7) 10^3/ul Absolute Lymphs (auto) (1.0-4.8) 10^3/ul Absolute Monos (auto) (0-0.8) 10^3/ul Absolute Eos (auto) (0-0.6) 10^3/ul Absolute Basos (auto) (0-0.2) 10^3/ul Absolute Nucleated RBC 10^3/ul Nucleated RBC % INR (Anticoag Therapy) (0.82-1.09) Sodium (135-145) mmol/L Potassium (3.5-5.0) mmol/L Chloride (101-111) mmol/L Carbon Dioxide (22-32) mmol/L Anion Gap (2-11) mmol/L BUN (6-24) mg/dL Creatinine (0.67-1.17) mg/dL Est GFR ( Amer) (>60) Est GFR (Non-Af Amer) (>60) BUN/Creatinine Ratio (8-20) Glucose (70-100) mg/dL Lactic Acid (0.5-2.0) mmol/L Calcium (8.6-10.3) mg/dL Magnesium (1.9-2.7) mg/dL Total Bilirubin (0.2-1.0) mg/dL AST (13-39) U/L ALT (7-52) U/L Alkaline Phosphatase (34-104) U/L Ammonia (16-53) mcmol/L Total Protein (6.4-8.9) g/dL Albumin (3.2-5.2) g/dL Globulin (2-4) g/dL Albumin/Globulin Ratio (1-3) Urine Color Urine Appearance Urine pH (5-9) Ur Specific [place] (1.010-1.030) Urine Protein (Negative) Urine Ketones (Negative) Urine Blood (Negative) Urine Nitrate (Negative) Urine Bilirubin (Negative) Urine Urobilinogen (Negative) Ur Leukocyte Esterase (Negative) Urine WBC (Auto) (Absent) Urine RBC (Auto) (Absent) Urine Bacteria (Absent) Urine Glucose (Negative) Urine Opiates Screen None detected (None Detect) Ur Barbiturates Screen None detected (None Detect) Ur Phencyclidine Scrn None detected (None Detect) Ur Amphetamines Screen None detected (None Detect) U Benzodiazepines Scrn None detected (None Detect) Urine Cocaine Screen None detected (None Detect) U Cannabinoids Screen Presumptive positive A (None Detect) Serum Alcohol (<10) mg/dL Result Diagrams: 10/20/19 09:46 10/20/19 09:46 Lab Statement: Any lab studies that have been ordered have been reviewed, and results considered in the medical decision making process. Course/Dx - Course Course Of Treatment: On arrival into the ED, the patient is evaluated for detox like symptoms. He denies any nausea or vomiting. Denies any sweats and patient does not appear diaphoretic on arrival. He does not appear anxious and denies any auditory, visual or tactile disturbances. He denies any headache currently, but states he has had a headache since awakening at around 8 AM. He has a very noticeable bilateral tremor which is with patient's arms at her side , not extended period. Pt states he is not confused and is A and O x 3 on arrival. Pt given ativan for his bilateral tremor and labs obtained. Labs WNL and alcohol level is at 16. Re-evaluation 3 hours after ativan given, pt feeling well and denies any WD like symptoms. Pt will not be admitted as he is not currently in WD and pt refusing to go to detox centers/inpatient rehab and does not want any resources at thist time. Pt is stable and VS remain stable. EKG shows rate of 79 with a NSR. DC with alcohol abuse and alcohol withdrawal. CIWA on arrival 14. CIWA on discharge = 0. Encouraged patient to return to the ED if he develops any worsening or changing symptoms. Patient agrees and voices no concerns at this time. - Diagnoses Differential Diagnosis/HQI/PQRI: Positive: Alcohol Abuse, Alcohol Withdrawal, Anxiety Provider Diagnoses: Alcohol withdrawal Discharge ED - Sign-Out/Discharge Documenting (check all that apply): Patient Departure - Discharge Plan Condition: Stable Disposition: HOME Patient Education Materials: Alcohol Withdrawal (ED) Referrals: No Primary Care Phys,NOPCP [Primary Care Provider] - Additional Instructions: If your symptoms persist, please return to the ED - Billing Disposition and Condition Condition: STABLE Disposition: Home - Attestation Statements Provider Attestation: I have seen the patient with the LAMAR and agree with the plan and documentation below except as noted: 53-year-old male with a history of alcohol abuse presents for concern for detox. Patient given 2 mg of Ativan for mild symptoms on arrival, patient not in active withdrawal. patient observed in the ER for several hours, didn't have any further symptoms. He does not wish to go to outpatient rehabilitation, no indication for inpatient txt. Patient has unreliable history of using alcohol, will not give Librium given safety. Juan Carlos Villa MD
[2019-10-20 12:53] VITALS: BP 143/85
== END 2019-10-20 12:53 | disposition home or self-care (01) ==
LOC: ED 09:17
DX: F10.239 Alcohol dependence with withdrawal, unspecified (principal); Y90.0 Blood alcohol level of less than 20 mg/100 ml; R25.1 Tremor, unspecified; G47.9 Sleep disorder, unspecified; Z88.8 Allergy status to other drugs, medicaments and biological substances
CPT/HCPCS: 36415; 80053; 80307; 80320; 81003; 81015; 82140; 83605; 83735; 85025; 85610; 87086; 93005; 96365; 96366; 96375; 99283; G0480; J2060; J3411

== ENCOUNTER 2019-11-04 22:59 | Emergency (ER) | payer MEDICARE, MEDICAID ==
--- NOTE | 2019-11-04 23:08 | ED ---
Lower Extremity - HPI Summary HPI Summary: Patient is a 53 y/o M presenting to the ED via EMS for a chief complaint of right foot pain, erythema, and swelling that began 2 hours PEDIATRIC LPN on 11/04/19. The pain is rated as a 3/10 in severity and is described as a sore sensation. Patient denies fever, chills, chest pain, shortness of breath, cough, rhinorrhea , nausea, or vomiting. Patient denies injury to the foot. No aggravating or alleviating factors are reported. He notes drinking heavily when he drinks alcohol. Recently, patient was seen at [facility] for alcohol withdrawal. PMHx of DM is denied. - History of Current Complaint Stated Complaint: RT FOOT PAIN PER EMS Time Seen by Provider: 11/04/19 23:02 Hx Obtained From: Patient Onset of Pain: Hours - 2 1/2 hours Onset/Duration: Still Present Severity Initially: Mild Severity Currently: Mild Pain Intensity: 3 Pain Scale Used: 0-10 Numeric Timing: Constant Location: Is Discrete @ - Right foot Associated Signs And Symptoms: Positive: Swelling - Right foot, Redness - Right foot. Negative: Fever Aggravating Factor(s): Nothing Alleviating Factor(s): Nothing - Allergies/Home Medications Allergies/Adverse Reactions: Allergies Allergy/AdvReac Type Severity Reaction Status Date / Time fluphenazine [From Prolixin] Allergy Rash Verified 11/04/19 23:07 PMH/Surg Hx/FS Hx/Imm Hx Previously Healthy: Yes Endocrine/Hematology History: Denies: Hx Anticoagulant Therapy, Hx Diabetes, Hx Thyroid Disease Cardiovascular History: Denies: Hx Hypertension Respiratory History: Denies: Hx Asthma, Hx Chronic Obstructive Pulmonary Disease (COPD) GI History: Denies: Hx Ulcer Musculoskeletal History: Reports: Hx Tendonitis - Left shoulder Sensory History: Denies: Hx Contacts or Glasses, Hx Legally Blind, Hx Deafness, Hx Hearing Aid Opthamlomology History: Denies: Hx Contacts or Glasses, Hx Legally Blind EENT History: Denies: Hx Deafness Psychiatric History: Reports: Hx Inpatient Treatment, Hx Community Mental Health Tx, Hx Schizophrenia, Hx Bipolar Disorder, Hx Substance Abuse - etoh Denies: Hx Anxiety, Hx Attention Deficit Hyperactivity Disorder, Hx Eating Disorder, Hx Depression, Hx Panic Disorder, Hx Post Traumatic Stress Disorder, Hx Suicide Attempt, Hx of Violent Episodes Against Others - Surgical History Surgical History: Yes Surgery Procedure, Year, and Place: COLON POLYPS REMOVED Infectious Disease History: No Infectious Disease History: Reports: Hx Shingles Denies: Hx Hepatitis, Hx Human Immunodeficiency Virus (HIV), Hx of Known/ Suspected MRSA, Hx Tuberculosis, Hx Known/Suspected VRSA, Traveled Outside the [place] in Last 30 Days - Family History Known Family History: Negative: Diabetes, Renal Disease, Respiratory Disease - Social History Occupation: Employed Full-time Alcohol Use: Daily Alcohol Amount: 1L whiskey a day Hx Substance Use: Yes Substance Use Type: Reports: Marijuana Substance Use Comment - Amount & Last Used: Daily Hx Tobacco Use: No Smoking Status (MU): Never Smoked Tobacco Review of Systems Negative: Fever, Chills Negative: Nasal Discharge Negative: Chest Pain Negative: Shortness Of Breath, Cough Negative: Vomiting, Nausea Positive: Myalgia - Right foot, Edema - Right foot Positive: Other - Positive erythema of the right foot All Other Systems Reviewed And Are Negative: Yes Physical Exam - Summary Physical Exam Summary: Constitutional: Well-developed, Well-nourished, Alert. (-) Distressed Skin: Warm, Dry HENT: Normocephalic; Atraumatic Eyes: Conjunctiva normal Neck: Musculoskeletal ROM normal neck. (-) JVD, (-) Stridor, (-) Tracheal deviation Cardio: Rhythm regular, rate normal, Heart sounds normal; Intact distal pulses; The pedal pulses are 2+ and symmetric. Radial pulses are 2+ and symmetric. (-) Murmur Pulmonary/Chest wall: Effort normal. (-) Respiratory distress, (-) Wheezes, (-) Rales Abd: Soft, (-) tenderness, (-) Distension, (-) Guarding, (-) Rebound Musculoskeletal: The bottoms of both feet are slightly swollen with thickened skin and poor hygiene, the right foot has 2+ pitting edema, is warm to touch, and has erythema that extends to 2/3 of the leg, bottom of the foot is calloused with superficial ulcers. 1+ pitting edema in the left foot. Lymph: (-) Cervical adenopathy Neuro: Alert, Oriented x3 Psych: Mood and affect Normal Triage Information Reviewed: Yes Vital Signs On Initial Exam: Initial Vitals Temp Pulse Resp BP Pulse Ox 97.4 F 81 16 170/99 97 11/04/19 23:02 11/04/19 23:02 11/04/19 23:02 11/04/19 23:02 11/04/19 23:02 Vital Signs Reviewed: Yes Procedures - Sedation Patient Received Moderate/Deep Sedation with Procedure: No Diagnostics - Vital Signs Vital Signs Temp Pulse Resp BP Pulse Ox 11/04/19 23:02 97.4 F 81 16 170/99 97 - Laboratory Result Diagrams: 11/04/19 23:22 11/04/19 23:22 Lab Statement: Any lab studies that have been ordered have been reviewed, and results considered in the medical decision making process. - Radiology Foot X-ray Radiology Interpretation Completed By: Radiologist Summary of Radiographic Findings: Foot X-ray IMPRESSION: no acute disease. Reviewed and interpreted by Dr. Reed, pending official radiology report. - Ultrasound Venous Doppler Study Ultrasound Interpretation Completed By: Radiologist Summary of Ultrasound Findings: Venous Doppler Study IMPRESSION: No evidence for acute DVT. Reviewed by Dr. Reed. Lower Extremity Course/Dx - Course Course Of Treatment: Patient is a 53 y/o M presenting to the ED via EMS for a chief complaint of right foot pain, erythema, and swelling that began 2 hours PEDIATRIC LPN on 11/04/19. The pain is rated as a 3/10 in severity and is described as a sore sensation. Patient denies fever, chills, chest pain, shortness of breath, cough, rhinorrhea, nausea, or vomiting. Patient denies injury to the foot. No aggravating or alleviating factors are reported. PMHx of DM is denied. On exam , the bottoms of both feet are slightly swollen with thickened skin and poor hygiene, the right foot has 2+ pitting edema, is warm to touch, and has erythema that extends to 2/3 of the leg, bottom of the foot is calloused with superficial ulcers. 1+ pitting edema in the left foot. In the ED course, patient was given Ativan 1 mg IV PUSH, Ativan 2 mg PO, and morphine 2 mg IV. Laboratory abnormal findings: RBC 3.88, Hgb 12.3, Hct 36, MCH 32, MPV 7.3, calcium 8.5. Venous Doppler Study IMPRESSION: No evidence for acute DVT. Foot X-ray IMPRESSION: no acute disease. Patient will be discharged with a diagnosis of cellulitis. Follow up with PCP in 1 day. - Diagnoses Provider Diagnoses: Cellulitis Discharge ED - Sign-Out/Discharge Documenting (check all that apply): Patient Departure - Discharge - Discharge Plan Condition: Stable Disposition: HOME Prescriptions: Cephalexin CAP* [Keflex CAP*] 500 mg PO TID 10 Days #30 cap Sulfamethox/Trimethoprim DS* [Bactrim DS 800/160 TAB*] 2 tab PO BID 10 Days #40 tab Patient Education Materials: Cellulitis (ED) Print Language: PARAGUAYAN Referrals: Care [facility] [Outside] Additional Instructions: return to the ED if symptoms worsen - Billing Disposition and Condition Condition: STABLE Disposition: Home - Attestation Statements Document Initiated by Scribe: Yes Documenting Scribe: Mary Kay Hill Provider For Whom Brittani is Documenting (Include Credential): Tyesha Ramos MD Scribe Attestation: Mary Kay Sheikh scribed for Tyesha Reed MD on 11/05/19 at 0132. Scribe Documentation Reviewed: Yes Provider Attestation: The documentation as recorded by the Mary Kay ledezma accurately reflects the service I personally performed and the decisions made by , Tyesha Reed MD Status of Scribe Document: Viewed
[2019-11-04 23:33] LABS: ABS Basophils 0.1 10^3/ul (0-0.2); ABS Lymphocytes 1.5 10^3/ul (1.0-4.8); ABS Monocytes 0.7 10^3/ul (0-0.8); Eosinophil % 0.6 %; Hematocrit 36 % (42-52); Hemoglobin 12.3 g/dL (14.0-18.0); Lymphocyte % 23.9 %; Mean Corpuscular HGB Conc 34 g/dL (31-36); Mean Corpuscular Hemoglobin 32 pg (27-31); Mean Corpuscular Volume 92 fL (80-94); Mean Platelet Volume 7.3 fL (7.4-10.4); Nucleated Red Blood Cells % 0.1; Platelet Count 363 10^3/uL (150-450); Red Blood Count 3.88 10^6 /uL (4.18-5.48); Red Cell Distribution Width 15 % (10-15); White Blood Count 6.4 10^3/uL (3.5-10.8)
[2019-11-04 23:43] LABS: Activated Partial Thrombo Time 27.4 seconds (26.0-38.0); INR 0.91 (0.82-1.09)
[2019-11-04 23:51] LABS: ALT 17 U/L (7-52); AST 19 U/L (13-39); Albumin 4.1 g/dL (3.2-5.2); Albumin/Globulin Ratio 1.6 (1-3); Alkaline Phosphatase 55 U/L (34-104); Anion Gap 7 mmol/L (2-11); Blood Urea Nitrogen 12 mg/dL (6-24); CO2 Carbon Dioxide 26 mmol/L (22-32); Calcium 8.5 mg/dL (8.6-10.3); Chloride 103 mmol/L (101-111); EGFR African American 94.9 (>60); EGFR Non-African American 78.5 (>60); Globulin 2.5 g/dL (2-4); Glucose 94 mg/dL (70-100); Potassium 3.9 mmol/L (3.5-5.0); Sodium 136 mmol/L (135-145); Total Protein 6.6 g/dL (6.4-8.9)
[2019-11-05] MEDS ORDERED: Lorazepam PYXIS KEY PRN (00:05)
[2019-11-05] MEDS ORDERED: LORazepam INJ* 2 MG/ML 1 ML VIAL IV PUSH ONE (00:05)
[2019-11-05 00:07] LABS: Alcohol < 10 mg/dL (<10)
[2019-11-05] MEDS ORDERED: Morphine 4 MG/ML VIAL (1 ml) 4 MG/ML VIAL IV ONE (00:07)
[2019-11-05] MEDS ORDERED: LORazepam TAB(*) 1 MG PO ONE (00:09)
--- OUTSIDE RECORDS SUMMARY | 2019-11-05 00:52 | XMS REPORT ---
:1965 Author Organization [facility] Care Team Providers Name Role Phone Tobias Edwards Primary Care Physician Unavailable Allergies, Adverse Reactions, Alerts Allergy Code CodeSystem Reaction Severity Criticality Status Start Substance Date Moderate Medications Medication Medication Medication Start Stop Route Dose Status Fill Code CodeSystem Date Date Instructions Invega 499095 RxNorm 2019- IM 156 active Inject 1 Sustenna 05-18-08 mg/mL 1 syringe syringe intramuscularly every every four four weeks for 30 weeks day(s) bupropion HCl 046558 RxNorm oral 300 mg active for 30 tablet day(s) extended release 24 hr acamprosate 262496 RxNorm 2019- oral 333 mg 2 completed 2 tablet 5-31 08-29 tablet,d three times a elayed day for 30 release day(s) (DR/EC) three times a day liothyronine 824557 RxNorm oral 25 mcg active for 30 tablet day(s) acamprosate 128294 RxNorm 2019- oral 333 mg completed for 30 2-15 05-31 tablet,d day(s) elayed release (DR/EC) escitalopram 276820 RxNorm oral 10 mg active for 30 oxalate 3-20 tablet day(s) Problems Problem Name Code CodeSystem Alternate Alternate Start End Status Narrative Code CodeSystem Date Date Schizoaffective 87117421 SNOMED-CT 2018-10 Active disorder, manic 1-01 type Relevant diagnostic tests/laboratory data Narrative No Information Procedures Procedure Code CodeSystem Target Date of Status Service Device Device Device Name Site Procedure Delivery Code Name UID Location Psychotherap 044273 SNOMED-CT () 2019-09-07 complete Mental y, 45 04 d Health- minutes with [place] patient [address], [id number] [id number] Psychotherap 043715 SNOMED-CT () 2019-05-26 complete Mental y, 45 04 d Health- minutes with [place] patient [address], [id number] [phone] Psychotherap 785866 SNOMED-CT () 2019-06-17 complete Mental y, 45 04 d Health- minutes with [place] patient [address], [id number] [phone] Comprehensiv 133484 SNOMED-CT () 2019-07-01 complete Mental e medication 0 d Health- services, [place] [address] [place] [address] [place] [address], [id number] [phone] Comprehensiv 856427 SNOMED-CT () 2019-09-23 complete Mental e medication 0 d Health- services, [place] per [address] [place] [address] [place] [address], [id number] [phone] Comprehensiv 195401 SNOMED-CT () 2019-06-02 complete Mental e medication 0 d Health- services, [place] per [address] [place] [address] [place] [address], [phone] [phone] Comprehensiv 611036 SNOMED-CT () 2019-07-01 complete Mental e medication 0 d Health- services, [place] per [address] [place] [address] [place] [address], [phone] [phone] Comprehensiv 635067 SNOMED-CT () 2019-07-29 complete Mental e medication 0 d Health- services, [place] per [address] [place] [address] [place] [address], [phone] [phone] Office or 409469 SNOMED-CT () 2019-08-07 complete Mental other 7 d Health- outpatient [place] visit for [address], [facility], established [id number] patient, [phone] which requires at least 2 of these 3 vergara components: An expanded problem focused history; An expanded problem focused examination; Medical decision making of [facility] Office or 879823 SNOMED-CT () 2019-09-18 complete Mental other 7 d Health- outpatient [place] visit for [address], established [id number] patient, [phone] which requires at least 2 of these 3 vergara components: An expanded problem focused history; An expanded problem focused examination; Medical decision making of low SNOMED-CT () 2019-04-05 complete Mental d [address], [id number] [phone] SNOMED-CT () 2019-07-29 complete Mental d [address], [id number] [phone] SNOMED-CT () 2019-01-06 complete Mental d [address], [id number] [phone] SNOMED-CT () 2019-01-20 complete Mental d [address], [id number] [id number] SNOMED-CT () 2019-02-04 complete Mental d [address], [id number] [phone] SNOMED-CT () 2019-02-17 complete Mental d [address], [id number] [phone] SNOMED-CT () 2019-03-31 complete Mental d [address], [id number] [phone] SNOMED-CT () 2019-04-07 complete Mental d [address], [id number] [phone] SNOMED-CT () 2019-04-21 complete Mental d [address], [id number] [phone] SNOMED-CT () 2019-05-12 complete Mental d [address], [id number] [phone] SNOMED-CT () 2019-08-20 complete Mental d [address], [id number] [phone] SNOMED-CT () 2019-08-26 complete Mental d [address], [id number] [phone] SNOMED-CT () 2019-07-01 complete Mental d [address], [id number] [phone] SNOMED-CT () 2019-05-05 complete Mental d [address], [id number] [phone] SNOMED-CT () 2019-10-05 [facility] Mental d [address], [id number] [phone] Encounters/Encounter Diagnoses Encounter Encounter Diagnosis Diagnosis Name Diagnosis Date of Service Name Code Code CodeSystem Diagnosis Delivery Location PROS H0002 [id number] Schizoaffective SNOMED-CT 2019-03-10 Behavioral Pre-Admissi disorder, manic [facility] , , , Vital Signs No Information Social History Element Description Description Start End Code CodeSystem AdditionalInfo Date Date SexAssignedAtBirth Male 1966-0 M AdministrativeGender 3-03 Hospital Discharge Instructions Reason For Referral Medical Equipment FDA Assessments
--- OUTSIDE RECORDS SUMMARY | 2019-11-05 00:52 | XMS REPORT ---
:1965 Author Organization [facility] Care Team Providers Name Role Phone Tobias Edwards Primary Care Physician Unavailable Allergies, Adverse Reactions, Alerts Allergy Code CodeSystem Reaction Severity Criticality Status Start Substance Date Moderate Medications Medication Medication Medication Start Stop Route Dose Status Fill Code CodeSystem Date Date Instructions acamprosate 329704 RxNorm 2019- oral 333 mg 2 completed 2 tablet 5-31 08-29 tablet,d three times a elayed day for 30 release day(s) (DR/EC) three times a day acamprosate 228323 RxNorm 2019- oral 333 mg completed for 30 2-15 05-31 tablet,d day(s) elayed release (DR/EC) escitalopram 189980 RxNorm oral 10 mg active for 30 oxalate 3-20 tablet day(s) bupropion HCl 291635 RxNorm oral 300 mg active for 30 tablet day(s) extended release 24 hr Invega 557744 RxNorm 2020- IM 156 active Inject 1 Sustenna 8-12 02-08 mg/mL 1 syringe syringe intramuscularly every every four four weeks for 30 weeks day(s) liothyronine 462465 RxNorm oral 25 mcg active for 30 tablet day(s) Problems Problem Name Code CodeSystem Alternate Alternate Start End Status Narrative Code CodeSystem Date Date Schizoaffective 37730612 SNOMED-CT 2018- Active disorder, manic 1-01 type Relevant diagnostic tests/laboratory data Narrative No Information Procedures Procedure Code CodeSystem Target Date of Status Service Device Device Device Name Site Procedure Delivery Code Name UID Location Psychotherap [id number] SNOMED-CT () 2019-05-26 complete Mental y, 45 04 d Health- minutes with [place] patient [address], [phone] Psychotherap 210011 SNOMED-CT () 2019-06-17 complete Mental y, 45 04 d Health- minutes with [place] patient [address], [id number] [phone] Comprehensiv 611233 SNOMED-CT () 2019-06-02 complete Mental e medication 0 d Health- services, [place] per [address] [place] [address], [id number] [phone] Comprehensiv 951525 SNOMED-CT () 2019-07-01 complete Mental e medication 0 d Health- services, [place] per [address] [place] [address], [id number] [phone] Comprehensiv 377307 SNOMED-CT () 2019-07-29 complete Mental e medication 0 d Health- services, [place] per [address] [place] [address], [id number] [phone] Comprehensiv 133076 SNOMED-CT () 2019-07-01 complete Mental e medication 0 d Health- services, [place] [address], [phone] Office or 209195 SNOMED-CT () 2019-08-07 complete Mental other 7 d Health- outpatient [place] visit for [address], [place], established [id number] patient, [phone] which requires at least 2 of these 3 vergara components: An expanded problem focused history; An expanded problem focused examination; Medical decision making of low SNOMED-CT () 2019-04-05 complete Mental d Health- [address], [id number] [phone] SNOMED-CT () 2019-08-20 complete Mental d Health- [address], [id number] [phone] SNOMED-CT () 2019-08-26 complete Mental d Health- [address], [id number] [phone] SNOMED-CT () 2019-07-29 complete Mental d Health- [address], [id number] [phone] SNOMED-CT () 2019-01-06 complete Mental d [address], [id number] [phone] SNOMED-CT () 2019-01-20 [facility] Mental d [address], [id number] [phone] SNOMED-CT () 2019-02-04 [facility] Mental d [address], [id number] [phone] SNOMED-CT () 2019-02-17 [facility] Mental d [address], [id number] [phone] SNOMED-CT () 2019-03-31 [facility] Mental d [address], [id number] [phone] SNOMED-CT () 2019-04-07 [facility] Mental d [address], [id number] [phone] SNOMED-CT () 2019-04-21 [facility] Mental d [address], [id number] [phone] SNOMED-CT () 2019-05-12 [facility] Mental d [address], [id number] [phone] SNOMED-CT () 2019-07-01 [facility] Mental d [address], [id number] [phone] SNOMED-CT () 2019-05-05 [facility] Mental d [address], [id number] [phone] Encounters/Encounter Diagnoses Encounter Encounter Diagnosis Diagnosis Name Diagnosis Date of Service Name Code Code CodeSystem Diagnosis Delivery Location PROS H0002 [id number] Schizoaffective SNOMED-CT 2019-03-10 Behavioral Pre-Admissi disorder, manic [facility] , , , Vital Signs No Information Social History Element Description Description Start End Code CodeSystem AdditionalInfo Date Date SexAssignedAtBirth Male 1966-0 M AdministrativeGender 3-03 Hospital Discharge Instructions Reason For Referral Medical Equipment FDA Assessments
--- OUTSIDE RECORDS SUMMARY | 2019-11-05 00:52 | XMS REPORT ---
:1965 Author Organization [facility] Care Team Providers Name Role Phone Tobias Edwards Primary Care Physician Unavailable Allergies, Adverse Reactions, Alerts Allergy Code CodeSystem Reaction Severity Criticality Status Start Substance Date Moderate Medications Medication Medication Medication Start Stop Route Dose Status Fill Code CodeSystem Date Date Instructions liothyronine 012981 RxNorm oral 25 mcg active for 30 tablet day(s) acamprosate 105439 RxNorm 2019- oral 333 mg 2 completed 2 tablet 5-31 08-29 tablet,d three times a elayed day for 30 release day(s) (DR/EC) three times a day bupropion HCl 591960 RxNorm oral 300 mg active for 30 tablet day(s) extended release 24 hr escitalopram 433041 RxNorm oral 10 mg active for 30 oxalate 3-20 tablet day(s) acamprosate 768828 RxNorm 2019- oral 333 mg completed for 30 2-15 05-31 tablet,d day(s) elayed release (DR/EC) Invega 242299 RxNorm 2020- IM 156 active Inject 1 Sustenna 8-12 02-08 mg/mL 1 syringe syringe intramuscularly every every four four weeks for 30 weeks day(s) Problems Problem Name Code CodeSystem Alternate Alternate Start End Status Narrative Code CodeSystem Date Date Schizoaffective 08105961 SNOMED-CT 2018- Active disorder, manic 1-01 type Relevant diagnostic tests/laboratory data Narrative No Information Procedures Procedure Code CodeSystem Target Date of Status Service Device Device Device Name Site Procedure Delivery Code Name UID Location Psychotherap 951952 SNOMED-CT () 2019-05-26 complete Mental y, 45 04 d Health- minutes with [place] patient [address], [id number] [phone] Psychotherap 480041 SNOMED-CT () 2019-06-17 complete Mental y, 45 04 d Health- minutes with [place] patient [address], [id number] [phone] Psychotherap 552224 SNOMED-CT () 2019-09-07 complete Mental y, 45 04 d Health- minutes with [place] patient [address], [id number] [phone] Comprehensiv 463437 SNOMED-CT () 2019-06-02 complete Mental e medication 0 d Health- services, [place] per [address] [place] [address] [place] [address], [phone] Comprehensiv 615408 SNOMED-CT () 2019-07-01 complete Mental e medication 0 d Health- services, [place] per [address] [place] [address] [place] [address], [phone] [phone] Comprehensiv 382942 SNOMED-CT () 2019-07-29 complete Mental e medication 0 d Health- services, [place] per [address] [place] [address] [place] [address], [phone] Comprehensiv 593181 SNOMED-CT () 2019-07-01 complete Mental e medication 0 d Health- services, [place] per [address] [place] [address] [place] [address], [id number] [phone] Office or 589949 SNOMED-CT () 2019-09-18 complete Mental other 7 d Health- outpatient [place] visit for [address], established [id number] patient, [phone] which requires at least 2 of these 3 vergara components: An expanded problem focused history; An expanded problem focused examination; Medical decision making of low Office or 529469 SNOMED-CT () 2019-08-07 complete Mental other 7 d Health- outpatient [place] visit for [address], established [phone] patient, [phone] which requires at least 2 of these 3 vergara components: An expanded problem focused history; An expanded problem focused examination; Medical decision making of low SNOMED-CT () 2019-04-05 complete Mental d Health- [place] [address], [id number] [phone] SNOMED-CT () 2019-08-20 complete Mental d [address], [id number] [phone] SNOMED-CT () 2019-08-26 complete Mental d [address], [id number] [phone] SNOMED-CT () 2019-07-29 complete Mental d Health[address], [id number] [phone] SNOMED-CT () 2019-01-06 complete Mental d [address], [id number] [phone] SNOMED-CT () 2019-01-20 complete Mental d [address], [id number] [phone] SNOMED-CT () 2019-02-04 complete Mental d Health[address], [id number] [phone] SNOMED-CT () 2019-02-17 complete Mental d [address], [id number] [phone] SNOMED-CT () 2019-03-31 complete Mental d [address], [id number] [phone] SNOMED-CT () 2019-04-07 complete Mental d [address], [id number] [phone] SNOMED-CT () 2019-04-21 complete Mental d [address], [id number] [phone] SNOMED-CT () 2019-05-12 complete Mental d Health[address], [id number] [phone] SNOMED-CT () 2019-07-01 complete Mental d [address], [id number] [phone] SNOMED-CT () 2019-05-[address], [id number] [phone] Encounters/Encounter Diagnoses Encounter Encounter Diagnosis Diagnosis Name Diagnosis Date of Service Name Code Code CodeSystem Diagnosis Delivery Location [facility] H0002 [id number] Schizoaffective SNOMED-CT 2019-03-10 Behavioral Pre-Admissi disorder, manic Health on [facility] type [facility] , , , Vital Signs No Information Social History Element Description Description Start End Code CodeSystem AdditionalInfo Date Date SexAssignedAtBirth Male 1966-0 M AdministrativeGender 3-03 Hospital Discharge Instructions Reason For Referral Medical Equipment FDA Assessments
[2019-11-05 01:02] VITALS: BP 155/85
[2019-11-05] MEDS ORDERED: Sulfamethox/Trimethoprim DS 800/160* TAB PO ONE (01:11)
[2019-11-05] MEDS ORDERED: Cephalexin CAP* 500 MG PO ONE (01:11)
== END 2019-11-05 01:30 | disposition home or self-care (01) ==
LOC: ED 22:59
DX: L03.115 Cellulitis of right lower limb (principal); F20.9 Schizophrenia, unspecified; F31.9 Bipolar disorder, unspecified; Z88.8 Allergy status to other drugs, medicaments and biological substances
CPT/HCPCS: 36415; 80053; 80320; 85025; 85610; 85730; 87040; 99283; A9270-GY; G0480

== ENCOUNTER 2019-11-08 05:54 | Emergency (ER) | payer MEDICARE, MEDICAID ==
[2019-11-08] MEDS ORDERED: Cefepime(*) 2 GM in NS 0.9% 50 ML* 50 ML IVPB ONE (06:17)
[2019-11-08] MEDS ORDERED: NS 0.9% 1000 ML** 1,000 ML IV ONE (06:17)
--- NOTE | 2019-11-08 06:23 | ED ---
Lower Extremity - HPI Summary HPI Summary: Patient is a 53-year-old male who presents emergency department for worsening redness and swelling to his right lower leg. Patient was seen in the ER for days ago for cellulitis of right lower leg. At that time he had negative x-ray and venous Doppler. Patient was placed on Keflex and Bactrim. Patient states he got prescriptions filled and thinks he may have took one tablet but then lost pills and has not had any further antibiotic treatment. Patient is an alcoholic and has history of schizoaffective disorder and psychosis. Patient states he believes redness and swelling started about 4 days ago and noticed it when he was walking. Patient otherwise denies fever, chills, nausea, vomiting, chest pain, shortness of breath. Symptoms are moderate in severity. No current modifying factors. - History of Current Complaint Chief Complaint: EDExtremityLower Stated Complaint: FOOT PAIN Time Seen by Provider: 11/08/19 06:01 Hx Obtained From: Patient Pain Intensity: 4 - Allergies/Home Medications Allergies/Adverse Reactions: Allergies Allergy/AdvReac Type Severity Reaction Status Date / Time fluphenazine [From Prolixin] Allergy Rash Verified 11/08/19 06:10 Home Medications: Home Medications Tadalafil [Cialis] 10 mg PO DAILY 11/08/19 [History Confirmed 11/08/19] PMH/Surg Hx/FS Hx/Imm Hx Previously Healthy: Yes Endocrine/Hematology History: Denies: Hx Anticoagulant Therapy, Hx Diabetes, Hx Thyroid Disease Cardiovascular History: Denies: Hx Hypertension Respiratory History: Denies: Hx Asthma, Hx Chronic Obstructive Pulmonary Disease (COPD) GI History: Denies: Hx Ulcer Musculoskeletal History: Reports: Hx Tendonitis - Left shoulder Sensory History: Denies: Hx Contacts or Glasses, Hx Legally Blind, Hx Deafness, Hx Hearing Aid Opthamlomology History: Denies: Hx Contacts or Glasses, Hx Legally Blind Psychiatric History: Reports: Hx Inpatient Treatment, Hx Community Mental Health Tx, Hx Schizophrenia, Hx Bipolar Disorder, Hx Substance Abuse - etoh Denies: Hx Anxiety, Hx Attention Deficit Hyperactivity Disorder, Hx Eating Disorder, Hx Depression, Hx Panic Disorder, Hx Post Traumatic Stress Disorder, Hx Suicide Attempt, Hx of Violent Episodes Against Others - Surgical History Surgery Procedure, Year, and Place: COLON POLYPS REMOVED Infectious Disease History: No Infectious Disease History: Reports: Hx Shingles Denies: Hx Hepatitis, Hx Human Immunodeficiency Virus (HIV), Hx of Known/ Suspected MRSA, Hx Tuberculosis, Hx Known/Suspected VRSA, Traveled Outside the [place] in Last 30 Days - Family History Known Family History: Positive: None - pt denies problems with heart, lungs, or joints in relatives, Non-Contributory Negative: Diabetes, Renal Disease, Respiratory Disease - Social History Occupation: Unemployed Lives: Alone Alcohol Use: Daily Alcohol Amount: 1L whiskey a day, recently changed to wine Hx Substance Use: Yes Substance Use Type: Reports: Marijuana Substance Use Comment - Amount & Last Used: Daily Hx Tobacco Use: No Smoking Status (MU): Never Smoked Tobacco Review of Systems Constitutional: Negative Negative: Fever, Chills Cardiovascular: Negative Respiratory: Negative Gastrointestinal: Negative Positive: Other - redness and swelling to right leg Neurological: Negative All Other Systems Reviewed And Are Negative: Yes Physical Exam Triage Information Reviewed: Yes Vital Signs On Initial Exam: Initial Vitals Temp Pulse Resp BP Pulse Ox 98 F 76 16 129/95 98 11/08/19 05:58 11/08/19 05:58 11/08/19 05:58 11/08/19 05:58 11/08/19 05:58 Vital Signs Reviewed: Yes Appearance: Positive: Well-Appearing - Pt. sitting on bed in NAD> Anxious. Skin: Positive: Warm, Dry Head/Face: Positive: Normal Head/Face Inspection Eyes: Positive: Normal, EOMI Neck: Positive: Supple Respiratory/Lung Sounds: Positive: Clear to Auscultation, Breath Sounds Present Cardiovascular: Positive: Normal, RRR Musculoskeletal: Positive: Other - Marked erythema and edema to right lower extremity. Erythema extends rough 3/4 LE. Superficial abrasion and ecchymosis noted to the mid anterior vincent patient states he obtained today. Callouses on bilateral feet. Mild edema to LLE. Neurological: Positive: Normal, Alert, Oriented to Person Place, Time, CN Intact II-III Psychiatric: Positive: Affect/Mood Appropriate Procedures - Sedation Patient Received Moderate/Deep Sedation with Procedure: No Diagnostics - Vital Signs Vital Signs Temp Pulse Resp BP Pulse Ox 11/08/19 06:07 78 97 11/08/19 05:58 98 F 76 16 129/95 98 - Laboratory Result Diagrams: 11/08/19 06:39 11/08/19 06:39 Lab Statement: Any lab studies that have been ordered have been reviewed, and results considered in the medical decision making process. Lower Extremity Course/Dx - Course Course Of Treatment: Pt. with ongoing signficant cellulitis to right lower leg. He is afebrile with stable VS. Will recheck labs and give a dose of IV cefepime. Concern for pt.'s compliance as he states he immediately lost his prior antibx rx. Case discussed with Dr. Villa. Given severity of infection , feel admission for IV antibx would be in pt.'s best interest. 0655: Pt. became upset he was given tylenol for pain. Spoke with pt. with nurse. He would like an NSAID. Agreeable to toradol initially and then later demanding motrin which was given. 0800: Pt. resting in bed with right leg elevated on numerous pillows and blankets. He is agreeable to admission at this time for continued IV antibiotics. 0900: Pt. becoming more and more agitated and is harassing staff. Pt. feels PO antibx and dc home would be more affective than staying in the hospital. Pt. has decision making compacity and will sign out of ER AMA. Pt. is aware of risk factors of leaving including sepsis, loss of limb and . WIll rx clindmycin. Pt. encouraged to return if sxs worsen. - Diagnoses Differential Diagnosis/HQI/PQRI: Positive: Cellulitis Provider Diagnoses: Cellulitis Discharge ED - Sign-Out/Discharge Documenting (check all that apply): Patient Departure - Discharge Plan Condition: Stable Disposition: AGAINST MEDICAL ADVICE Prescriptions: clindamycin HCL [Clindamycin HCl] 300 mg PO QID #40 capsule clindamycin HCL [Clindamycin HCl] 300 mg PO QID #40 capsule Patient Education Materials: Cellulitis (ED) Referrals: [facility] [Outside] Additional Instructions: You are leaving the ER AGAINST MEDICAL ADVISE Please take antibiotic as directed Return to ER for worsening symptoms - Billing Disposition and Condition Condition: STABLE Disposition: Against Medical Advice - Attestation Statements Provider Attestation: I have seen the patient with the LAMAR and agree with the plan and documentation below except as noted: briefly this is a 53-year-old male with a history of schizophrenia and lower leg cellulitis presenting with continued cellulitis. Patient offered admission for IV antibiotics. Juan Carlos Villa MD
[2019-11-08] MEDS ORDERED: NS 0.9% 50 ML* 50 ML ONE (06:29)
[2019-11-08] MEDS ORDERED: Acetaminophen TAB* 325 MG PO ONE (06:29)
[2019-11-08] MEDS ORDERED: Cefepime 2 GM in Dextrose(*) 2 GM/50 ML BAG IV ONE (06:30)
[2019-11-08 06:51] LABS: ABS Basophils 0.1 10^3/ul (0-0.2); ABS Eosinophils 0.1 10^3/ul (0-0.6); ABS Lymphocytes 1.2 10^3/ul (1.0-4.8); ABS Monocytes 0.6 10^3/ul (0-0.8); ABS Neutrophils 4.2 10^3/ul (1.5-7.7); Hematocrit 34 % (42-52); Hemoglobin 11.8 g/dL (14.0-18.0); Lymphocyte % 19.1 %; Mean Corpuscular HGB Conc 35 g/dL (31-36); Mean Corpuscular Hemoglobin 32 pg (27-31); Mean Corpuscular Volume 91 fL (80-94); Mean Platelet Volume 7.7 fL (7.4-10.4); Platelet Count 300 10^3/uL (150-450); Red Blood Count 3.74 10^6 /uL (4.18-5.48); Red Cell Distribution Width 15 % (10-15); White Blood Count 6.1 10^3/uL (3.5-10.8)
[2019-11-08] MEDS ORDERED: Ketorolac INJ* 30 MG/ML 1 ML VIAL IV PUSH ONE (06:58)
[2019-11-08 07:03] LABS: Albumin 3.9 g/dL (3.2-5.2); Albumin/Globulin Ratio 1.8 (1-3); BUN/Creatinine Ratio 13.8 (8-20); C Reactive Protein 5.95 mg/L (<8.01); Calcium 8.4 mg/dL (8.6-10.3); EGFR African American 111.5 (>60); EGFR Non-African American 92.1 (>60); Globulin 2.2 g/dL (2-4); Potassium 3.5 mmol/L (3.5-5.0); Total Bilirubin 0.2 mg/dL (0.2-1.0); Total Protein 6.1 g/dL (6.4-8.9)
[2019-11-08] MEDS ORDERED: Ibuprofen TAB* 800 MG PO ONE (07:21)
[2019-11-08 09:16] VITALS: BP 154/92
== END 2019-11-08 09:10 | disposition left against medical advice (07) ==
LOC: ED 05:54
DX: L03.115 Cellulitis of right lower limb (principal); Z88.8 Allergy status to other drugs, medicaments and biological substances
CPT/HCPCS: 36415; 80053; 83605; 85025; 86140; 87040; 96361; 96365; 96366; 99283; A9270-GY; J0692

== ENCOUNTER 2019-11-09 13:16 | Emergency (ER) | payer MEDICARE, MEDICAID ==
[2019-11-09] MEDS ORDERED: diPHENhydraMINE IV* 50 MG/ML 1 ml VIAL (BENADRYL) IM ONE (13:54)
[2019-11-09] MEDS ORDERED: Haloperidol INJ IV/IM* 5 MG/ML AMP IM ONE (13:54)
[2019-11-09] MEDS ORDERED: LORazepam INJ* 2 MG/ML 1 ML VIAL IM ONE (13:54)
[2019-11-09] MEDS ORDERED: LORazepam INJ* 2 MG/ML 1 ML VIAL ONE ×2 (13:58→14:06)
--- NOTE | 2019-11-09 13:59 | ED ---
Psychiatric Complaint - HPI Summary HPI Summary: 53-year-old male presents to the emergency department today under 945 order via EMS and police. Patient states that he called [facility] to obtain funds that they have available to him however he was unable to withdraw this. Patient states he called [facility] numerous times and harassed them to give him his money. Patient states [facility] then called the police to bring him to the hospital for mental health evaluation. Patient is currently agitated and refusing to cooperate with history or physical. Patient is verbally abusive of staff and refusing to cooperate with mental health protocol. Patient has no medical complaints at this time other than a right lower extremity cellulitis which was treated in this emergency department 2 days prior. Patient currently denies homicidal ideation and suicidal ideation. - History Of Current Complaint Time Seen by Provider: 11/09/19 13:31 Hx Obtained From: Patient Onset/Duration: Sudden Onset Character: Angry, Frustrated Aggravating Factor(s): Recent Stress Associated Signs And Symptoms: Positive: Hostile Related History: Positive For: Prior Psychiatric Issues Has Suicidal: Denies: Thoughts, With A Plan Has Homicidal: Denies: Thoughts, With A Plan - Allergies/Home Medications Allergies/Adverse Reactions: Allergies Allergy/AdvReac Type Severity Reaction Status Date / Time fluphenazine [From Prolixin] Allergy Rash Verified 11/08/19 06:10 Home Medications: Home Medications Paliperidone SUSTENNA* [Invega Sustenna*] 156 mg IM ONCE 11/09/19 [History Confirmed 11/09/19] PMH/Surg Hx/FS Hx/Imm Hx Endocrine/Hematology History: Denies: Hx Anticoagulant Therapy, Hx Diabetes, Hx Thyroid Disease Cardiovascular History: Denies: Hx Hypertension Respiratory History: Denies: Hx Asthma, Hx Chronic Obstructive Pulmonary Disease (COPD) GI History: Denies: Hx Ulcer Musculoskeletal History: Reports: Hx Tendonitis - Left shoulder Sensory History: Denies: Hx Contacts or Glasses, Hx Legally Blind, Hx Deafness, Hx Hearing Aid Opthamlomology History: Denies: Hx Contacts or Glasses, Hx Legally Blind Psychiatric History: Reports: Hx Inpatient Treatment, Hx Community Mental Health Tx, Hx Schizophrenia, Hx Bipolar Disorder, Hx Substance Abuse - etoh Denies: Hx Anxiety, Hx Attention Deficit Hyperactivity Disorder, Hx Eating Disorder, Hx Depression, Hx Panic Disorder, Hx Post Traumatic Stress Disorder, Hx Suicide Attempt, Hx of Violent Episodes Against Others - Surgical History Surgery Procedure, Year, and Place: COLON POLYPS REMOVED Infectious Disease History: No Infectious Disease History: Reports: Hx Shingles Denies: Hx Hepatitis, Hx Human Immunodeficiency Virus (HIV), Hx of Known/ Suspected MRSA, Hx Tuberculosis, Hx Known/Suspected VRSA, Traveled Outside the [place] in Last 30 Days - Family History Known Family History: Positive: None - pt denies problems with heart, lungs, or joints in relatives, Non-Contributory Negative: Diabetes, Renal Disease, Respiratory Disease - Social History Alcohol Use: Daily Alcohol Amount: 1L whiskey a day, recently changed to wine Hx Substance Use: Yes Substance Use Type: Reports: Marijuana Substance Use Comment - Amount & Last Used: Daily Hx Tobacco Use: No Smoking Status (MU): Never Smoked Tobacco Review of Systems Constitutional: Negative Eyes: Negative ENT: Negative Cardiovascular: Negative Respiratory: Negative Gastrointestinal: Negative Genitourinary: Negative Musculoskeletal: Negative Positive: Rash. Negative: Bruising Neurological: Negative Psychological: Normal All Other Systems Reviewed And Are Negative: Yes Physical Exam - Summary Physical Exam Summary: There is a resolving cellulitis on the right lower extremity. Right lower extremity is erythematous and mildly edematous. Triage Information Reviewed: Yes Vital Signs On Initial Exam: Initial Vitals Temp Pulse Resp BP Pulse Ox 0 F 0 20 0/0 0 11/09/19 13:48 11/09/19 13:48 11/09/19 13:48 11/09/19 13:48 11/09/19 13:48 Vital Signs Reviewed: Yes Appearance: Positive: Well-Appearing, No Pain Distress, Well-Nourished Skin: Positive: Warm, Skin Color Reflects Adequate Perfusion Eyes: Positive: EOMI, DIONY ENT: Positive: Hearing grossly normal Respiratory/Lung Sounds: Positive: Clear to Auscultation, Breath Sounds Present Cardiovascular: Positive: RRR, S1, S2 Abdomen Description: Positive: Soft Bowel Sounds: Positive: Present Musculoskeletal: Positive: Strength/ROM Intact Neurological: Positive: Sensory/Motor Intact, Alert, Oriented to Person Place, Time, Normal Gait, Facial Symmetry, Speech Normal Psychiatric: Positive: Patient Uncooperative for Exam AVPU Assessment: Alert Procedures - Sedation Patient Received Moderate/Deep Sedation with Procedure: No Diagnostics - Vital Signs Vital Signs Temp Pulse Resp BP Pulse Ox 11/09/19 13:48 0 F 0 20 0/0 0 - Laboratory Result Diagrams: 11/09/19 19:24 11/09/19 19:24 Lab Statement: Any lab studies that have been ordered have been reviewed, and results considered in the medical decision making process. Course/Dx - Course Course Of Treatment: Patient was evaluated in the emergency department today for suicidal ideation. Patient examined. Patient was very verbally aggressive and abusive with staff and threatening to physical assault. Patient was noncompliant with laboratory work, urine sample, changing into scrubs. He was discussed with the patient that if he did not cooperate and she continued to be violent we would have to chemically restrain him. Patient was given chemical restraints using 50 mg Benadryl, 5mg Haldol, 2 mg of Ativan. Patient was placed under observation. Patient's behavior was corrected using chemical restraint. Pt medically cleared for mental health evaluation. Patient was in no acute distress. Patient was signed out to JESSE Haro at 1730. - Differential Dx/Clinical Impression Differential Diagnosis/HQI/PQRI: Positive: Anxiety, Depression Provider Diagnosis: Behavior disturbance Discharge ED - Sign-Out/Discharge Documenting (check all that apply): Sign-Out Patient Signing out patient TO: Abundio Shukla Receiving patient FROM: Fran Pham - Discharge Plan Condition: Stable Disposition: HOME Referrals: [facility] [Other] (Contact them to see if they would take you on as a patient ) [facility] [Outside] - If Needed Family/[facility] [Outside] - As Soon As Possible (Contact to see if they will accept you as a patient to continue with your mental health services and medication management.) [facility] [Outside] - As Soon As Possible (Contact to see if they are your Rep Payee) [facility] [Outside] - If Needed No Primary Care Phys,[facility] [Primary Care Provider] - - Billing Disposition and Condition Condition: STABLE Disposition: Home - Attestation Statements Provider Attestation: I agree w LAMAR documentation as above, briefly 53 y/o male seen yesterday in ED for cellultis BIB EMS on 945. Was hostile w psychiatrist. Denies SI or HI but unwilling to cooperate w hospital policies or evaluation. Despite multiple attempts as de-escalation, patient unwilling to comply. Given haldol/ativan/ benadryl. Psych to see. Juan Carlos Villa MD
[2019-11-09] MEDS ORDERED: Haloperidol INJ IV/IM* 5 MG/ML AMP ONE (14:06)
[2019-11-09] MEDS ORDERED: diPHENhydraMINE IV* 50 MG/ML 1 ml VIAL (BENADRYL) ONE (14:06)
[2019-11-09 19:33] LABS: ABS Basophils 0.1 10^3/ul (0-0.2); ABS Lymphocytes 1.1 10^3/ul (1.0-4.8); ABS Monocytes 0.7 10^3/ul (0-0.8); ABS Neutrophils 5.6 10^3/ul (1.5-7.7); Eosinophil % 0.5 %; Hematocrit 35 % (42-52); Hemoglobin 12.3 g/dL (14.0-18.0); Lymphocyte % 15.2 %; Mean Corpuscular HGB Conc 35 g/dL (31-36); Mean Corpuscular Hemoglobin 32 pg (27-31); Mean Corpuscular Volume 91 fL (80-94); Mean Platelet Volume 7.7 fL (7.4-10.4); Platelet Count 298 10^3/uL (150-450); Red Blood Count 3.87 10^6 /uL (4.18-5.48); Red Cell Distribution Width 15 % (10-15); White Blood Count 7.5 10^3/uL (3.5-10.8)
[2019-11-09 19:50] LABS: ALT 14 U/L (7-52); AST 25 U/L (13-39); Albumin/Globulin Ratio 1.7 (1-3); Alkaline Phosphatase 62 U/L (34-104); Anion Gap 9 mmol/L (2-11); BUN/Creatinine Ratio 12.2 (8-20); Blood Urea Nitrogen 11 mg/dL (6-24); CO2 Carbon Dioxide 24 mmol/L (22-32); Calcium 8.9 mg/dL (8.6-10.3); Chloride 103 mmol/L (101-111); EGFR African American 107.2 (>60); EGFR Non-African American 88.6 (>60); Globulin 2.3 g/dL (2-4); Glucose 78 mg/dL (70-100); Potassium 3.7 mmol/L (3.5-5.0); Sodium 136 mmol/L (135-145); Total Protein 6.3 g/dL (6.4-8.9)
[2019-11-09 20:02] LABS: Acetaminophen < 15 mcg/mL; Alcohol < 10 mg/dL (<10); Salicylate < 2.50 mg/dL (<30)
[2019-11-09 20:17] LABS: TSH (Thyroid Stimulating Horm) 3.15 mcIU/mL (0.34-5.60)
[2019-11-09 20:33] LABS: Urine Appearance Clear; Urine Bilirubin Negative (Negative); Urine Blood Negative (Negative); Urine Color Straw; Urine Glucose Negative (Negative); Urine Ketones 1+ (Negative); Urine Nitrite Negative (Negative); Urine Protein Negative (Negative); Urine Specific Gravity 1.009 (1.010-1.030); Urine Urobilinogen Negative (Negative)
[2019-11-09 20:53] LABS: Urine Benzodiazepine Screen None Detected (None Detect); Urine Opiates Screen None Detected (None Detect)
--- NOTE | 2019-11-09 21:36 | PN ---
Progress Note - Progress Note Date of Service: 11/09/19 Note: Patient signed out to me by Fran MOLINA pending mental health evaluation. Mental health evaluation recommends discharge home with social work consult in the morning. Patient discharged in stable condition with diagnosis of bipolar disorder.
[2019-11-09 22:17] VITALS: BP 144/88
== END 2019-11-09 22:00 | disposition home or self-care (01) ==
LOC: ED 13:16
DX: F91.9 Conduct disorder, unspecified (principal); F20.9 Schizophrenia, unspecified; F31.9 Bipolar disorder, unspecified; Z79.899 Other long term (current) drug therapy; Z88.8 Allergy status to other drugs, medicaments and biological substances
CPT/HCPCS: 36415; 80053; 80307; 80320; 80329; 81003; 84443; 85025; 96372; 99285; G0480; J1200; J1630; J2060

== ENCOUNTER 2019-11-12 09:17 | Observation (INO) | payer MEDICARE, MEDICAID ==
[2019-11-12] MEDS ORDERED: LORazepam INJ* 2 MG/ML 1 ML VIAL IV PUSH ONE (09:56)
[2019-11-12] MEDS ORDERED: Lactated Ringers 1000 ML Bag* 1,000 ML IV ONE (09:56)
[2019-11-12] MEDS ORDERED: Lorazepam PYXIS KEY PRN (09:56)
[2019-11-12] MEDS ORDERED: Piperacillin/Tazobac ADVAN(*) 3.375 GM in NS 0.9% 100 ML* 100 ML IVPB ONE (09:57)
[2019-11-12] MEDS ORDERED: Vancomycin(*) 1,000 MG in NS 0.9% 250 ML* 250 ML IV ONE (09:57)
--- NOTE | 2019-11-12 09:57 | ED ---
Lower Extremity - HPI Summary HPI Summary: The patient is a 53 y/o male presenting to [facility] with a chief complaint of increased swelling and mild erythema of the right lower extremity onset about a week ago. He reports that he was here a few days ago after experiencing some pain and swelling in the leg, and he was recommended admission for cellulitis, but he declined because he didnt think it was necessary, so he was discharged home with one 300mg Clindamycin QID. The patient, however, has only been taking the medication TID because that was too many antibiotics. He has returned to the ED now as the swelling has increased. He denies any pain in the leg now. PMHx: schizophrenia, bipolar disorder, alcoholism. Former smoker, daily EtOH, marijuana use. Medications reviewed. Allergies noted. - History of Current Complaint Chief Complaint: EDExtremityLower Stated Complaint: RT LEG SWELLING PER PT Hx Obtained From: Patient Mechanism Of Injury: Unknown Onset of Pain: Days Onset/Duration: Still Present Severity Initially: Mild Severity Currently: Moderate Pain Intensity: 0 Pain Scale Used: 0-10 Numeric Timing: Lasting Days Location: Is Discrete @ - right lower leg Associated Signs And Symptoms: Positive: Swelling, Redness. Negative: Other - pain Aggravating Factor(s): Nothing Alleviating Factor(s): Nothing - Allergies/Home Medications Allergies/Adverse Reactions: Allergies Allergy/AdvReac Type Severity Reaction Status Date / Time fluphenazine [From Prolixin] Allergy Rash Verified 11/12/19 09:23 Home Medications: Home Medications Clindamycin Cap(NF) [Clindamycin Cap 300 mg Cap(NF)] 300 mg PO TID 11/12/19 [ History Confirmed 11/12/19] Ibuprofen TAB* [Advil TAB*] 200 mg PO Q6H PRN 11/12/19 [History Confirmed ] PMH/Surg Hx/FS Hx/Imm Hx Endocrine/Hematology History: Denies: Hx Anticoagulant Therapy, Hx Diabetes, Hx Thyroid Disease Cardiovascular History: Denies: Hx Hypertension Respiratory History: Denies: Hx Asthma, Hx Chronic Obstructive Pulmonary Disease (COPD) GI History: Denies: Hx Ulcer Musculoskeletal History: Reports: Hx Tendonitis - Left shoulder Sensory History: Denies: Hx Contacts or Glasses, Hx Legally Blind, Hx Deafness, Hx Hearing Aid Opthamlomology History: Denies: Hx Contacts or Glasses, Hx Legally Blind Psychiatric History: Reports: Hx Inpatient Treatment, Hx Community Mental Health Tx, Hx Schizophrenia, Hx Bipolar Disorder, Hx Substance Abuse - etoh Denies: Hx Anxiety, Hx Attention Deficit Hyperactivity Disorder, Hx Eating Disorder, Hx Depression, Hx Panic Disorder, Hx Post Traumatic Stress Disorder, Hx Suicide Attempt, Hx of Violent Episodes Against Others - Surgical History Surgical History: Yes Surgery Procedure, Year, and Place: COLON POLYPS REMOVED Infectious Disease History: No Infectious Disease History: Reports: Hx Shingles Denies: Hx Hepatitis, Hx Human Immunodeficiency Virus (HIV), Hx of Known/ Suspected MRSA, Hx Tuberculosis, Hx Known/Suspected VRSA, Traveled Outside the [place] in Last 30 Days - Family History Known Family History: Negative: Cardiac Disease, Hypertension, Diabetes, Renal Disease, Respiratory Disease - Social History Alcohol Use: Daily Alcohol Amount: 1L whiskey a day, recently changed to wine Hx Substance Use: Yes Substance Use Type: Reports: Marijuana Substance Use Comment - Amount & Last Used: Daily Hx Tobacco Use: Yes Smoking Status (MU): Former Smoker Review of Systems Positive: Edema - right lower leg. Negative: Myalgia - right leg Positive: Other - mild erythema of the right lower leg All Other Systems Reviewed And Are Negative: Yes Physical Exam - Summary Physical Exam Summary: Constitutional: Well-developed, Well-nourished, Alert. (-) Distressed Skin: Warm, Dry, Open and broken skin on feet, Skin peeling, Cracks inside of webspaces HENT: Normocephalic; Atraumatic Eyes: Conjunctiva normal Neck: Musculoskeletal ROM normal neck. (-) JVD, (-) Stridor, (-) Tracheal deviation Cardio: Rhythm regular, rate normal, Heart sounds normal; Intact distal pulses; The pedal pulses are 2+ and symmetric. Radial pulses are 2+ and symmetric. Pulmonary/Chest wall: Effort normal. (-) Respiratory distress, (-) Wheezes, (-) Rales Abd: Soft, (-) tenderness, (-) Distension, (-) Guarding, (-) Rebound Musculoskeletal: Entire right foot appearing cellulitic with chronic subacute edema, Poor pedal hygiene, 3+ edema up to the knee on right, Particularly warm to touch, Left lower extremity is supple, 1+ edema on the far lower ankle of the left leg Neuro: Alert, Oriented x3 Psych: Mood and affect Normal Triage Information Reviewed: Yes Vital Signs On Initial Exam: Initial Vitals Temp Pulse Resp BP Pulse Ox 98.1 F 85 16 176/97 99 11/12/19 09:19 11/12/19 09:19 11/12/19 09:19 11/12/19 09:19 11/12/19 09:19 Vital Signs Reviewed: Yes Procedures - Sedation Patient Received Moderate/Deep Sedation with Procedure: No Diagnostics - Vital Signs Vital Signs Temp Pulse Resp BP Pulse Ox 11/12/19 09:19 98.1 F 85 16 176/97 99 - Laboratory Result Diagrams: 11/12/19 10:16 11/12/19 10:16 Lab Statement: Any lab studies that have been ordered have been reviewed, and results considered in the medical decision making process. - Ultrasound Venous Doppler US Ultrasound Interpretation Completed By: Radiologist Summary of Ultrasound Findings: Impression: No right lower extremity deep vein thrombosis. No left lower extremity deep vein thrombosis. ED physician has reviewed this report. Lower Extremity Course/Dx - Course Course Of Treatment: 53 y/o male presenting with increased swelling of the lower right leg onset gradually over the last week with recommendation for admission but patient declined and was placed on Clindamycin QID, although he has only been taking the medication TID. Physical exam is significant for the entire right foot appearing cellulitic with chronic subacute edema, poor pedal hygiene, open and broken skin, skin peeling, cracks inside of webspaces, 3+ edema up to the knee on right, particularly warm to touch, left lower extremity is supple, 1+ edema on the far lower ankle of the left leg. Patient administered Vancomycin, Zosyn, and lactated ringers for infection. The patient is already showing signs of tremors, with signs of withdrawal. He will be administered Ativan. 53 y/o male presenting with increased swelling of the lower right leg onset gradually over the last week with recommendation for admission but patient declined and was placed on Clindamycin QID, although he has only been taking the medication TID. Physical exam is significant for the entire right foot appearing cellulitic with chronic subacute edema, poor pedal hygiene, open and broken skin, skin peeling, cracks inside of webspaces, 3+ edema up to the knee on right, particularly warm to touch, left lower extremity is supple, 1+ edema on the far lower ankle of the left leg. Patient administered Vancomycin, Zosyn, and lactated ringers for infection. The patient is already showing signs of tremors, with signs of withdrawal. He will be administered Ativan. Venous Doppler US is negative for DVT in the left or right lower extremity. The patient failed outpatient therapy despite appropriate dosing, so he is appropriate for admission at this time. Dr. Toro from hospitalist services accepts the patient for admission for cellulitis. Patient is amendable to this plan. Venous Doppler US is negative for DVT in the left or right lower extremity. The patient failed outpatient therapy despite appropriate dosing, so he is appropriate for admission at this time. Dr. Toro from hospitalist services accepts the patient for admission for cellulitis. Patient is amendable to this plan. - Diagnoses Provider Diagnoses: Cellulitis - Physician Notifications Discussed Care Of Patient With: Toyin Toro - hospitalist Time Discussed With Above Provider: 12:10 Instructed by Provider To: Other - I discussed the patients case with Dr. Toro , who accepts the patient for admission. Discharge ED - Sign-Out/Discharge Documenting (check all that apply): Patient Departure - Patient is accepted for admission. - Discharge Plan Condition: Stable Disposition: ADMITTED TO [facility] - Billing Disposition and Condition Condition: STABLE Disposition: Admitted to [facility] - Attestation Statements Document Initiated by Brittani: Yes Documenting Scribe: Bindu Ferrell Provider For Whom Brittani is Documenting (Include Credential): Dr. Abundio Davis MD Scribe Attestation: Bindu Sheikh scribed for Dr. Abundio Davis MD on 11/12/19 at 1854. Scribe Documentation Reviewed: Yes Provider Attestation: The documentation as recorded by the Bindu ledezma accurately reflects the service I personally performed and the decisions made by me, Dr. Abundio Davis MD Status of Scribtabitha Document: Viewed
[2019-11-12 10:33] LABS: ABS Lymphocytes 0.9 10^3/ul (1.0-4.8); ABS Monocytes 0.4 10^3/ul (0-0.8); ABS Neutrophils 5.9 10^3/ul (1.5-7.7); Eosinophil % 0.7 %; Hematocrit 41 % (42-52); Hemoglobin 13.8 g/dL (14.0-18.0); Lymphocyte % 12.1 %; Mean Corpuscular HGB Conc 34 g/dL (31-36); Mean Corpuscular Hemoglobin 32 pg (27-31); Mean Corpuscular Volume 92 fL (80-94); Mean Platelet Volume 7.8 fL (7.4-10.4); Platelet Count 309 10^3/uL (150-450); Red Blood Count 4.39 10^6 /uL (4.18-5.48); Red Cell Distribution Width 15 % (10-15); White Blood Count 7.2 10^3/uL (3.5-10.8)
[2019-11-12 10:41] LABS: Activated Partial Thrombo Time 19.8 seconds (26.0-38.0); INR 0.88 (0.82-1.09)
[2019-11-12 10:48] LABS: Calcium 9.6 mg/dL (8.6-10.3); EGFR African American 119.4 (>60); EGFR Non-African American 98.7 (>60); Magnesium 1.7 mg/dL (1.9-2.7); Potassium 3.8 mmol/L (3.5-5.0)
[2019-11-12 12:30] LABS: C Reactive Protein 11.85 mg/L (<8.01)
[2019-11-12] MEDS ORDERED: Ibuprofen TAB* 400 MG PO ONE (13:21)
[2019-11-12] MEDS ORDERED: Acetaminophen TAB* 325 MG PO PRN (13:37)
[2019-11-12] MEDS ORDERED: Thiamine INJ* 100 MG/ML 2 ML VIAL IM ONE (13:44)
[2019-11-12 15:07] LABS: % Iron Saturation 20 % (15-55); Iron 66 ug/dL (50-212); Total Iron Binding Capacity 333 mcg/dL (250-450); Transferrin 238 mg/dL (203-362)
[2019-11-12 15:29] LABS: Ferritin 46.4 ng/mL (24-336)
[2019-11-12 15:32] LABS: Folate 10.18 ng/mL (>3.99)
--- NOTE | 2019-11-12 16:23 | HP ---
AMENDED REPORT NOW INCLUDES DESIGNATED COSIGNER - ESIGNED BEFORE ADJUSTMENT ADMISSION HISTORY AND PHYSICAL: DATE OF ADMISSION: 11/12/19 PRIMARY CARE PROVIDER: The patient denies having a PCP at this time. ATTENDING PHYSICIAN: Dr. Toro * (dictated by Sosa Betancourt NP). CHIEF COMPLAINT: Continued swelling and redness to right leg and foot. HISTORY OF PRESENT ILLNESS: Mr. Gamble is a 53-year-old male who presented today to the emergency department for continued redness and swelling to his right leg and foot. He states that this has been happening for approximately the last week. He presented on 11/09/19 for which he was brought in under 945 order via EMS and police per ED report. This was in relation to an incident where per his report he was trying to obtain funds from [facility] and was unable to obtain them. It was noted during his time in the ER that he also had right lower extremity cellulitis at that time for which was noted from a previous ED report that he had been treated 2 days prior to that. It was found that the patient was treated with clindamycin. This was supposed to be 300 mg 4 times daily; however, he states he was only taking it t.i.d. He denies any recent fevers, chills, night sweats, visual changes, chest pain, palpitations, swelling other than the right lower extremity, shortness of breath , nausea, vomiting, diarrhea, abdominal pain, blood in the stool, blood in urine , unusual muscle or joint aches, unusual headaches, or feelings of anxiety. He does complain of having mild headaches at times, states this is usual for him. He also states that he has an occasional cough sometimes dry, sometimes not. He states this has been happening for quite some time now. Currently says that he feels a little "trembly." Mr. Gamble is a nearly every day drinker of about half a liter of whiskey per his own report. He admits to having 375 mL of whiskey this morning as well as 2 glasses of wine. States that he did smoke marijuana prior to coming into the hospital today. Denies having any hallucinations or diaphoresis. States that he goes 1 to 2 days without any alcohol about every week. Denies any difficulty moving around at the knees. States he feels the movement in bilateral ankles is somewhat limited. States that he tripped a couple days ago and got an abrasion to his right vincent. Denies any other drug use. While in the emergency department today, the patient received 1 L of LR, 1 dose of lorazepam, 1 dose of Zosyn IV, 1 dose of vancomycin. The patient does not appear acutely ill at this time other than the right leg. Vital signs have been stable other than 1 spike in his heart rate up to 107 and an initial blood pressure 176/97. Hospital Medicine was asked to evaluate the patient for admission. The patient states that a surrogate decision maker for him would be his sister, Madison Gamble. PAST MEDICAL HISTORY: 1. Alcohol use disorder. 2. Schizoaffective disorder. 3. History of inpatient treatment for mental health disorders. 4. Depression. PAST SURGICAL HISTORY: Molars removed "years ago." HOME MEDICATIONS: 1. Ibuprofen 800 mg q.6 hours p.r.n. 2. Invega Sustenna 156 mg/mL injections q.4 weeks. ALLERGIES: FLUPHENAZINE. FAMILY HISTORY: The patient denies knowledge of any significant family history. SOCIAL HISTORY: The patient is single. He lives alone in [facility]. States that he drinks about 6 caffeinated beverages a day. Quit smoking tobacco in 2005 for which he had smoked about 1 pack per day for about 20 years. Admits to drinking approximately half a liter of whiskey per day, but will not drink 1 to 2 days out of every week if he does not have enough money to do so. Admits to daily marijuana use, but denies any other illicit drug use. REVIEW OF SYSTEMS: A 10-point review of systems was completed with this patient. Please see HPI for all pertinent positives and negatives. PHYSICAL EXAMINATION CONSTITUTIONAL: The patient is sitting up in bed, appears to be in no acute distress, able to move self around without any difficulties. VITAL SIGNS: Temp 98.1, pulse rate 75, respiratory rate 16, O2 saturation 99% on room air, blood pressure 134/80. HEENT: PERRLA. No scleral icterus noted. RESPIRATORY: Lung sounds clear throughout bilaterally. Was noted to be diminished to bilateral upper lobes. CARDIOVASCULAR: Heart rate irregular. S1, S2 present. No murmurs, rubs, or gallops noted. GI: Bowel sounds present throughout. EXTREMITIES: Pedal pulses present 2+ bilaterally. Mild pitting edema noted to the left lower extremity and foot. Moderate pitting edema noted to the right lower extremity and foot. MUSCULOSKELETAL: Range of motion and strength appear to be within normal limits to all extremities. NEURO: Alert and oriented x3. The patient does appear to be mildly tremulous at this time. Cranial nerves II through XII grossly intact. The patient is unable to sense light touch until approximately one-third the way up the vincent to the right lower extremity. Unable to sense light touch to the toes on the left foot, but is able to sense light touch throughout the remainder of the foot. PSYCH: Responds appropriately. Cooperative with normal affect. SKIN: Very mild erythema and warmth noted to the left ankle. Significant erythema with clear borders and warmth noted to the right lower extremity from below the knee all the way down and throughout the foot. Approximately 3 to 4 cm diameter abrasion noted to the right vincent with scattered scabbing and some light green and purple bruising noted, surrounding bruising noted as well to back of the right calf. Small skin tear noted to top of the right great toe. Bottoms of bilateral feet exhibit dry cracked and scaly skin, calluses. Feet are fairly dirty. DIAGNOSTIC STUDIES/LAB DATA: Venous Doppler study completed today, impression states no right lower extremity DVT, no left lower extremity DVT. Lab data: WBC 7.2, RBC 4.39, hemoglobin 13.8, hematocrit 41, MCV 92, MCH 32, MCHC 34, RDW 15, platelet count 309. INR 0.88, APTT 19.8. Sodium 138, potassium 3.8, chloride 101, carbon dioxide 24, anion gap 13, BUN 9, creatinine 0.82, estimated GFR 98.7, BUN/creatinine ratio 11.0, glucose 85, lactic acid 1.3 , calcium 9.6, magnesium 1.7. CRP 11.85. Serum alcohol 48. ASSESSMENT AND PLAN: Mr. Gamble is a pleasant 53-year-old male with a past medical history significant for alcohol use disorder, schizoaffective disorder, history of inpatient treatment for mental health disorders, and depression. He is very cooperative with interview and exam. He presented to the emergency department today with continued redness and swelling to his right lower extremity. [facility] Medicine was asked to assess the patient for admission. 1. Cellulitis of the right lower extremity. The patient states this has been going on for approximately 1 week. He has been treated previously for this current episode with clindamycin 300 mg p.o. 4 times daily; however, he states he has only been taking it t.i.d. Doppler study was negative. Does not meet sepsis criteria at this time nor does he appear systemically infected. Systemic infection could potentially be masked by withdraw and should be closely monitored. The decrease in discomfort may be an indication that the clindamycin in general had been working. We will give the patient clindamycin 300 mg IV q.6 hours while in the hospital. We will continue to monitor. Blood cultures collected in the emergency department. Also, in the emergency department received a dose of Zosyn IV as well as a dose of vancomycin IV. 2. Anemia. H and H 13.8 and 41, MCV 92, RDW 15. This is very likely in relation to the patient's alcoholism. The patient has very poor outpatient followup and care. Labs including iron studies, B12, and folate ordered for tomorrow. Social Work consult entered to assist the patient in appropriate followup. 3. Alcohol abuse disorder. The patient admits to drinking approximately half a liter of whiskey per day with a 1- to 2-day break each week, which he states is in relation to the amount of money he has. We will place the patient on [facility] protocol. Ativan ordered. Thiamine, multivitamin, and folic acid ordered. Again, Social Work consult has been entered. 4. Hypomagnesemia. Magnesium level 1.7. Magnesium oxide 400 mg p.o. daily ordered. Labs entered for tomorrow. 5. Tinea pedis. Appearance of bilateral feet consistent with fungal infection. Clotrimazole 1% cream b.i.d. ordered. He should be sent home with Rx. 6. FEN: The patient can continue a regular diet. No fluids appear to be necessary at this time. 7. Code status: Full. 8. DVT prophylaxis: Heparin subcu. Consults: Wound consult ordered. Social Work consult ordered. TIME SPENT: Approximately 75 minutes was spent on this admission with about half of that being [id number] with the patient for interview, physical exam, and review of plan of care. Case reviewed by my attending physician, Dr. Toro, and she agrees with this plan. SOSA BETANCOURT NP [id number]/[facility] #: [id number] GUILLERMO
[2019-11-12] MEDS: Magnesium Oxide TAB* 400 MG PO SCH (16:27)
[2019-11-12] MEDS: LORazepam TAB(*) 1 MG PO SCH ×2 (16:27→21:36)
[2019-11-12] MEDS: Heparin VIAL(*) 5000 UNITS/ML VIAL (FIVE THOUSAND) SUBCUT SCH ×2 (16:28→21:17)
[2019-11-12] MEDS: Clindamycin 300 MG IVPREMIX* 300 MG/50 ML SDV IV SCH ×2 (17:29→21:17)
[2019-11-12] MEDS ORDERED: Ibuprofen TAB* 400 MG PO PRN (20:00)
[2019-11-12] MEDS: Clotrimazole 1% CREAM* 45 GM TOPICAL SCH (22:54)
[2019-11-13] MEDS: Heparin VIAL(*) 5000 UNITS/ML VIAL (FIVE THOUSAND) SUBCUT SCH (04:59)
[2019-11-13] MEDS: Clindamycin 300 MG IVPREMIX* 300 MG/50 ML SDV IV SCH (04:59)
[2019-11-13] MEDS: LORazepam TAB(*) 1 MG PO SCH (05:03)
[2019-11-13 06:36] LABS: ABS Eosinophils 0.1 10^3/ul (0-0.6); ABS Lymphocytes 1.3 10^3/ul (1.0-4.8); ABS Monocytes 0.5 10^3/ul (0-0.8); ABS Neutrophils 3.9 10^3/ul (1.5-7.7); Eosinophil % 1.3 %; Hematocrit 37 % (42-52); Lymphocyte % 22.4 %; Mean Corpuscular HGB Conc 35 g/dL (31-36); Mean Corpuscular Hemoglobin 32 pg (27-31); Mean Corpuscular Volume 92 fL (80-94); Nucleated Red Blood Cells % 0.1; Platelet Count 259 10^3/uL (150-450); Red Blood Count 4.03 10^6 /uL (4.18-5.48); Red Cell Distribution Width 15 % (10-15); White Blood Count 5.8 10^3/uL (3.5-10.8)
[2019-11-13 07:13] LABS: BUN/Creatinine Ratio 13.3 (8-20); EGFR African American 97.2 (>60); EGFR Non-African American 80.3 (>60); Potassium 4.4 mmol/L (3.5-5.0)
[2019-11-13 07:49] VITALS: BP 125/75
[2019-11-13] MEDS: Magnesium Oxide TAB* 400 MG PO SCH (08:03)
[2019-11-13] MEDS: Clotrimazole 1% CREAM* 45 GM TOPICAL SCH (08:03)
[2019-11-13] MEDS ORDERED: Thiamine TAB* 100 MG TAB PO SCH (09:00)
[2019-11-13] MEDS ORDERED: Multivitamins/Minerals TAB PO SCH (09:00)
[2019-11-13] MEDS ORDERED: Folic Acid TAB* 1 MG PO SCH (09:00)
--- NOTE | 2019-11-13 16:01 | DS ---
DISCHARGE SUMMARY: DATE OF ADMISSION: 11/12/19 DATE OF DISCHARGE: 11/13/19 PRIMARY CARE PROVIDER: None on file. ATTENDING PROVIDER: Toyin Toro MD * (dictated by JESSE Tucker) . PRIMARY DIAGNOSES: 1. Right lower extremity cellulitis. 2. Anemia. SECONDARY DIAGNOSES: 1. Alcohol abuse 2. Schizoaffective disorder. 3. Depression. STUDIES WHILE IN THE HOSPITAL: Bilateral lower extremity ultrasound, impression : No right lower extremity, left lower extremity DVT. DISCHARGE MEDICATIONS: Home Medications: 1. Ibuprofen 200 mg p.o. q.6 hours p.r.n. [place] medications: 1. Clotrimazole 1% cream one application topically b.i.d. 2. Clindamycin 300 mg p.o. 4 times a day x7 days. HISTORY OF PRESENT ILLNESS/HOSPITAL COURSE: Mr. Gamble is a 53-year-old male with a past medical history of alcohol use disorder and schizoaffective disorder, who presented to [facility] on 11/12/19 with complaints of right lower extremity edema and erythema. The patient reportedly has had this for 5 days. He notes that it started in the right foot and then spread proximally up the right leg. He reports that he was in the ER approximately 3 days ago and was prescribed clindamycin, which he had taken 3 times daily. It was reported that he should be taking this medication 4 times daily. He was admitted for IV clindamycin for right lower extremity cellulitis. The following day, the patient states he will be leaving at 0900. He notes that he feels "a 100% better" and reports no pain in the right lower extremity. He was encouraged to stay, but the patient states that he is leaving at 0900 regardless. This curriculum writer attempted to fill his prescription medications at the hospital pharmacy so that he could leave with the medications, but the patient was unwilling to wait. At exactly 0900, he walked out of the hospital. This curriculum writer was unable to get the patient any discharge orders or suggestions. The patient did have the capacity to make the decision to leave, but he has opted to leave against medical advice. PHYSICAL EXAMINATION: Vital Signs: Temperature 97.3 oral, heart rate 64, respiratory rate 19, oxygen saturation 100% on room air, blood pressure 125/75. General: Mr. Gamble is a well-developed, well-nourished, overweight, middle - aged white male who is sitting up in bed. He is mildly tremulous. He appears mildly agitated, but in no acute distress. HEENT: PERRL. Hearing grossly intact. Oral mucous membranes are moist. There are no lesions. The pharynx is clear. Tongue is at midline. Cardiovascular: Regular rate and rhythm with S1, S2 present. No murmurs, rubs, clicks, or gallops. Pulmonary: Symmetrical chest expansion without use of accessory muscles. Clear to auscultation bilaterally without rhonchi, wheeze, or rales. Skin: The patient' s right lower extremity has mild erythema from the mid vincent distally. There is a closed abraded area on the anterior right vincent that has scabbed over. There is underlying mild edema with a small amount of ecchymosis underlying this area. The patient has 1+ pitting edema to the right lower extremity. Neuro: The patient is awake. He is alert and oriented x3. He has capacity. He has a steady gait without impairment. DISCHARGE PLAN: Mr. Gamble will be discharged home against medical advice. CONDITION: Fair, stable. DISPOSITION: Against medical advice. ACTIVITIES: As tolerated. MEDICATIONS: Clindamycin and clotrimazole. Medications were sent to the patient's home pharmacy. I did relay this to him as he was walking out of the hospital, but again the patient was unwilling to wait for further instructions or discharge planning. EDUCATION: 1. The patient should follow up with [facility] as he has no primary care provider. 2. Return to the ER or nearest hospital if there is any worsening of symptoms, worsening of redness, pain or swelling. Return for high fevers, chills, night sweats. Return for chest pain, shortness of breath, cough, fever, chills, dizziness, lightheadedness or loss of consciousness. This is a summarized report of a complex medical history and hospital stay. For further details, please see entire medical record. TIME SPENT: Approximately 25 minutes were spent on this discharge, greater than half of that time spent [id number] with the patient assessing him and attempting to communicate discharge instructions. JESSE KENNY [id number]/[facility] #: [id number] GUILLERMO
== END 2019-11-13 09:00 | disposition left against medical advice (07) ==
LOC: ED 09:17 → MED 13:37
PROVIDERS: ADMIT Nurse Practitioner Family; ATTEND Internal Medicine
DX: L03.115 Cellulitis of right lower limb (principal); D64.9 Anemia, unspecified; F10.10 Alcohol abuse, uncomplicated; F25.9 Schizoaffective disorder, unspecified; F32.9 Major depressive disorder, single episode, unspecified; R60.9 Edema, unspecified; E83.42 Hypomagnesemia; B35.3 Tinea pedis; F12.90 Cannabis use, unspecified, uncomplicated; Z87.891 Personal history of nicotine dependence; Z88.5 Allergy status to narcotic agent; Z86.59 Personal history of other mental and behavioral disorders
CPT/HCPCS: 36415; 80048; 80320; 82607; 82728; 82746; 83540; 83550; 83605; 83735; 85025; 85610; 85730; 86140; 87040; 93005; 93970; 96361; 96365; 96366; 96367; 96372; 96375; 99284; A9270-GY; G0378; G0480; J1644; J2060; J2543; J3370; J3411

== ENCOUNTER 2019-11-16 05:07 | Emergency (ER) | payer MEDICARE, MEDICAID ==
[2019-11-16 05:11] VITALS: BP 166/98
== END 2019-11-16 05:51 | disposition left against medical advice (07) ==
LOC: ED 05:07
DX: Z53.21 Procedure and treatment not carried out due to patient leaving prior to being seen by health care provider (principal); M79.606 Pain in leg, unspecified
CPT/HCPCS: 99281

== ENCOUNTER 2019-11-16 07:41 | Emergency (ER) | payer MEDICARE, MEDICAID ==
--- NOTE | 2019-11-16 08:15 | ED ---
Psychiatric Complaint - HPI Summary HPI Summary: Patient is a 53 y/o M presenting to the ED via EMS on a code 941 for a psychiatric complaint. Per EMS, patient wrote a note expressing SI. Patient states that he wrote a song and a poem that included guns and bullets. Patient reports the title of the song is Outfinger by Messi Kuhn. Patient admits SI in the past, but none at the present time. Currently, patient is taking Motrin and is taking penicillin for a right anterior calf infection with erythema that occurred after a fall 2-3 days ago. Patient denies any fever, chills, erythema of eyes, sore throat, chest pain, shortness of breath, cough, abdominal pain, nausea, vomiting, dysuria, hematuria, myalgia, edema, rash, dizziness, SI, or HI. No aggravating or alleviating factors are reported. He denies taking any other medications. Patient denies a history of HTN, DM, bipolar disorder, schizophrenia, or any other significant PMHx. He notes that he prank called the [facility] where he was receiving counselling several times, and due to this, he was told he could not be a client at the facility. He notes attempting to get treated by the [facility] team. He reports marijuana and alcohol use. Typically, he drinks whiskey, vodka, beer, and wine. - History Of Current Complaint Chief Complaint: EDMentalHealth Time Seen by Provider: 11/16/19 07:52 Hx Obtained From: Patient, EMS Onset/Duration: Sudden Onset, Still Present Timing: Constant Severity Initially: Moderate Severity Currently: Moderate Aggravating Factor(s): Nothing Alleviating Factor(s): Nothing Associated Signs And Symptoms: Positive: Negative Related History: Negative For: Prior Psychiatric Issues Has Suicidal: Denies: Thoughts Has Homicidal: Denies: Thoughts - Allergies/Home Medications Allergies/Adverse Reactions: Allergies Allergy/AdvReac Type Severity Reaction Status Date / Time fluphenazine [From Prolixin] Allergy Rash Verified 11/16/19 05:10 PMH/Surg Hx/FS Hx/Imm Hx Previously Healthy: Yes Endocrine/Hematology History: Denies: Hx Anticoagulant Therapy, Hx Diabetes, Hx Thyroid Disease Cardiovascular History: Denies: Hx Hypertension Respiratory History: Denies: Hx Asthma, Hx Chronic Obstructive Pulmonary Disease (COPD) GI History: Denies: Hx Ulcer Musculoskeletal History: Reports: Hx Tendonitis - Left shoulder Sensory History: Denies: Hx Contacts or Glasses, Hx Legally Blind, Hx Deafness, Hx Hearing Aid Opthamlomology History: Denies: Hx Contacts or Glasses, Hx Legally Blind EENT History: Denies: Hx Deafness Psychiatric History: Reports: Hx Inpatient Treatment, Hx Community Mental Health Tx, Hx Schizophrenia, Hx Bipolar Disorder, Hx Substance Abuse - etoh Denies: Hx Anxiety, Hx Attention Deficit Hyperactivity Disorder, Hx Eating Disorder, Hx Depression, Hx Panic Disorder, Hx Post Traumatic Stress Disorder, Hx Suicide Attempt, Hx of Violent Episodes Against Others - Surgical History Surgical History: Yes Surgery Procedure, Year, and Place: COLON POLYPS REMOVED Infectious Disease History: Yes Infectious Disease History: Reports: Hx Shingles Denies: Hx Hepatitis, Hx Human Immunodeficiency Virus (HIV), Hx of Known/ Suspected MRSA, Hx Tuberculosis, Hx Known/Suspected VRSA, Traveled Outside the US in Last 30 Days - Family History Known Family History: Negative: Cardiac Disease, Hypertension, Diabetes, Renal Disease, Respiratory Disease - Social History Lives: With Family Alcohol Use: Daily Alcohol Amount: 1L whiskey a day, recently changed to wine Hx Substance Use: Yes Substance Use Type: Reports: Marijuana Substance Use Comment - Amount & Last Used: Daily Hx Tobacco Use: Yes Smoking Status (MU): Former Smoker Review of Systems Negative: Fever, Chills Negative: Erythema Negative: Sore Throat Negative: Chest Pain Negative: Shortness Of Breath, Cough Negative: Abdominal Pain, Vomiting, Nausea Negative: dysuria, hematuria Negative: Myalgia, Edema Positive: Other - Positive right anterior calf infection with erythema Neurological: Other - Negative dizziness Psychological: Other - Negative SI or HI All Other Systems Reviewed And Are Negative: Yes Physical Exam - Summary Physical Exam Summary: Constitutional: Well-developed, Well-nourished, Alert. (-) Distressed Skin: Warm, Dry HENT: Normocephalic; Atraumatic Eyes: Conjunctiva normal Neck: Musculoskeletal ROM normal neck. (-) JVD, (-) Stridor, (-) Tracheal deviation Cardio: Rhythm regular, rate normal, Heart sounds normal; Intact distal pulses; The pedal pulses are 2+ and symmetric. Radial pulses are 2+ and symmetric. (-) Murmur Pulmonary/Chest wall: Effort normal. (-) Respiratory distress, (-) Wheezes, (-) Rales Abd: Soft, (-) tenderness, (-) Distension, (-) Guarding, (-) Rebound Musculoskeletal: Mild cellulitis in the right lower extremity with surrounding erythema and surrounding an abrasion on the right lateral vincent. Lymph: (-) Cervical adenopathy Neuro: Alert, Oriented x3 Psych: Mood and affect Normal. Speech is slightly pressured. Triage Information Reviewed: Yes Vital Signs On Initial Exam: Initial Vitals Temp Pulse Resp BP Pulse Ox 98.1 F 90 20 146/107 98 11/16/19 07:46 11/16/19 07:46 11/16/19 07:46 11/16/19 07:46 11/16/19 07:46 Vital Signs Reviewed: Yes Procedures - Sedation Patient Received Moderate/Deep Sedation with Procedure: No Diagnostics - Vital Signs Vital Signs Temp Pulse Resp BP Pulse Ox 11/16/19 07:46 98.1 F 90 20 146/107 98 - Laboratory Result Diagrams: 11/16/19 08:12 11/16/19 08:12 Lab Statement: Any lab studies that have been ordered have been reviewed, and results considered in the medical decision making process. Re-Evaluation - Re-Evaluation First Eval Re-Evaluation Time: 08:01 Change: Unchanged Comment: At 08:01, patient is medically cleared for a mental health evaluation. Course/Dx - Course Course Of Treatment: Patient is a 53 y/o M presenting to the ED via EMS on a code 941 for a psychiatric complaint. Per EMS, patient wrote a note expressing SI. Patient states that he wrote a song and a poem that included guns and bullets. Patient reports the title of the song is Outfinger by Messi Kuhn. Patient admits SI in the past, but none at the present time. Currently, patient is taking Motrin and is taking penicillin for a right anterior calf infection with erythema that occurred after a fall 2-3 days ago. Patient denies any fever , chills, erythema of eyes, sore throat, chest pain, shortness of breath, cough , abdominal pain, nausea, vomiting, dysuria, hematuria, myalgia, edema, rash, dizziness, SI, or HI. He denies taking any other medications. Patient denies a history of HTN, DM, bipolar disorder, schizophrenia, or any other significant PMHx. He notes that he prank called the [facility] where he was receiving counselling several times, and due to this, he was told he could not be a client at the facility. He reports marijuana and alcohol use. On exam , speech is slightly pressured. Mild cellulitis in the right lower extremity with surrounding erythema and surrounding an abrasion on the right lateral vincent. In the ED course, patient was given Cleocin 300 mg PO. Laboratory abnormal findings: Hgb 13.3, Hct 39, absolute lymphs 0.9, urine specific gravity 1.009, urine ketones 1+, urine leukocyte esterase 1+, urine WBC 2+, urine RBC 1+, urine cannabinoids screen presumptive positive. At 17:00, Dr. Jeff Mathis reviewed the patients case and will discharge the patient from [facility]. Patient will be discharged with a diagnosis of schizophrenia. - Differential Dx/Clinical Impression Provider Diagnosis: Schizophrenia - Physician Notifications Discussed Care Of Patient With: Jeff Mathis - At 17:00, Dr. Jeff Mathis reviewed the patients case and will discharge the patient from [facility]. Time Discussed With Above Provider: 17:00 Instructed by Provider To: Other - Discharge - Critical Care Time Critical Care Time: 30-74 min - 35 minutes Discharge ED - Sign-Out/Discharge Documenting (check all that apply): Patient Departure - Discharge - Discharge Plan Condition: Stable Disposition: HOME Referrals: [facility] [Outside] Additional Instructions: Pt was brought in to [facility] by ambulance. Pt states his leg is very sore and has a wound on it. Pt got bored and wrote down lyrics to Messi Tomlin. while waiting in ER. Pt gave lyrics to executive receptionist. Later,the clearing house clerk showed up at his door, and said poem was concerning because it contained words about guns. Pt said song was about civil war. Pt denies SI or HI. Pt's sister does not see pt as having SI or HI at this time [facility] was contacted for follow up. A message was left with Mary Kay Mahoney about following up with patient as [facility] is not taking patienbts at this time. IMPORTANT PHONE NUMBERS: [facility] Behavioral Services Unit: [facility] Emergency Room Behavioral Pod: Suicide Prevention and Crisis Services: The Chat: Text (free and confidential online crisis service sponsored by [facility] Suicide Prevention, available Saturday-Saturday 6pm 9pm) National Suicide Prevention Lifeline: (364) 181-UAYQ (5000) National Crisis Text Line: Text MYKEL to 919613 [facility] Mental Health Clinic: [facility] Outreach for Older Adults: [facility] Mental Health Association: MICHAEL [facility]: [facility] Police: [facility] Sheriff: [place] Police Department: Alcoholics Anonymous: Narcotics Anonymous: Alcohol and Drug [facility]: [place] [facility] ([facility]) Outpatient Services: [place] [facility]: [phone] Alcohol & Drug Crisis: [facility]: Department of [place] [employer] Finisher: [place] [facility] [place]: [facility] Action: [place] Housing Authority: [facility]: Neighborhood Housing Services: [facility] Independent Center: [facility] ACT Team: Bahai Charities: Food Bank of [facility]: Loaves and Fishes (free daily meals): [facility] Action Food Pantry: Advocacy Center: or Youth Advocacy Center (YAP): [facility] Activities Center (GIAC): Open Doors: [facility] [place]: - Attestation Statements Document Initiated by Scribe: Yes Documenting Scribe: Mary Kay Hill Provider For Whom Scribe is Documenting (Include Credential): Mikey Garnett MD Scribe Attestation: Mary Kay Sheikh, scribed for Mikey Garnett MD on 11/16/19 at 1915. Status of Scribe Document: Ready
[2019-11-16 08:27] LABS: ABS Basophils 0.1 10^3/ul (0-0.2); ABS Eosinophils 0.1 10^3/ul (0-0.6); ABS Lymphocytes 0.9 10^3/ul (1.0-4.8); ABS Monocytes 0.5 10^3/ul (0-0.8); ABS Neutrophils 5.1 10^3/ul (1.5-7.7); Eosinophil % 1.3 %; Hematocrit 39 % (42-52); Hemoglobin 13.3 g/dL (14.0-18.0); Lymphocyte % 13.5 %; Mean Corpuscular HGB Conc 34 g/dL (31-36); Mean Corpuscular Hemoglobin 31 pg (27-31); Mean Corpuscular Volume 92 fL (80-94); Mean Platelet Volume 7.8 fL (7.4-10.4); Platelet Count 295 10^3/uL (150-450); Red Blood Count 4.26 10^6 /uL (4.18-5.48); Red Cell Distribution Width 15 % (10-15); White Blood Count 6.7 10^3/uL (3.5-10.8)
[2019-11-16 08:39] LABS: ALT 15 U/L (7-52); AST 20 U/L (13-39); Albumin 4.7 g/dL (3.2-5.2); Albumin/Globulin Ratio 1.6 (1-3); Alkaline Phosphatase 64 U/L (34-104); Anion Gap 9 mmol/L (2-11); BUN/Creatinine Ratio 12.9 (8-20); Blood Urea Nitrogen 11 mg/dL (6-24); CO2 Carbon Dioxide 25 mmol/L (22-32); Calcium 9.3 mg/dL (8.6-10.3); Chloride 101 mmol/L (101-111); EGFR African American 114.5 (>60); EGFR Non-African American 94.7 (>60); Globulin 2.9 g/dL (2-4); Glucose 98 mg/dL (70-100); Potassium 4.3 mmol/L (3.5-5.0); Sodium 135 mmol/L (135-145); Total Protein 7.6 g/dL (6.4-8.9)
[2019-11-16 08:54] LABS: Urine Appearance Clear; Urine Bilirubin Negative (Negative); Urine Blood Negative (Negative); Urine Color Yellow; Urine Glucose Negative (Negative); Urine Ketones 1+ (Negative); Urine Nitrite Negative (Negative); Urine Protein Negative (Negative); Urine Specific Gravity 1.009 (1.010-1.030); Urine Urobilinogen Negative (Negative)
[2019-11-16 08:55] LABS: Urine Bacteria Absent (Absent); Urine Red Blood Cell 1+(3-5/hpf) (Absent); Urine White Blood Cell 2+(11-20/hpf) (Absent)
[2019-11-16 08:56] LABS: Acetaminophen < 15 mcg/mL; Alcohol < 10 mg/dL (<10); Salicylate < 2.50 mg/dL (<30)
[2019-11-16 09:11] LABS: TSH (Thyroid Stimulating Horm) 2.74 mcIU/mL (0.34-5.60)
[2019-11-16] MEDS ORDERED: Clindamycin CAP* 150 MG PO ONE (09:18)
[2019-11-16 09:22] LABS: Urine Benzodiazepine Screen None Detected (None Detect); Urine Opiates Screen None Detected (None Detect)
[2019-11-16] MEDS ORDERED: Clindamycin CAP* 150 MG PO SCH (13:00)
[2019-11-16 13:48] VITALS: BP 000/00
== END 2019-11-16 13:47 | disposition home or self-care (01) ==
LOC: ED 07:41
DX: F20.9 Schizophrenia, unspecified (principal); F31.9 Bipolar disorder, unspecified; Z87.891 Personal history of nicotine dependence; Z88.8 Allergy status to other drugs, medicaments and biological substances
CPT/HCPCS: 36415; 80053; 80307; 80320; 80329; 81003; 81015; 84443; 85025; 87086; 99284; A9270-GY; G0480

== ENCOUNTER 2019-11-18 22:25 | Emergency (ER) | payer MEDICARE, MEDICAID ==
--- NOTE | 2019-11-18 22:54 | ED ---
Skin Complaint - HPI Summary HPI Summary: This pt is a 53 Y/O M presenting to [facility] with a CC of increased swelling and redness in his L leg following an infection and recent hospitalization. He states that he was prescribed Clindamycin and has been on the ABx for the past 3 days without noticeable improvements. He denies any fevers, pain, chills, N/V , and headaches. He states that his RLE has begun to increase in inflammation and has not noticed any change in temperature of the leg. He states that he was recently diagnosed with cellulites in both legs. - History of Current Complaint Chief Complaint: EDExtremityLower Time Seen by Provider: 11/18/19 22:40 Stated Complaint: GENERAL PER EMS Hx Obtained From: Patient Onset/Duration: Still Present Timing: Constant Current Severity: None Pain Intensity: 0 Pain Scale Used: 0-10 Numeric Skin Location: Leg - bilateral, R side worse than left Character: Swelling, Redness Aggravating Symptom(s): Nothing Alleviating Symptom(s): Nothing Associated Signs & Symptoms: Negative - fevers, pain, chills, N/V, and headaches. Similar Episode/Dx as: recent visit to [facility] for similar Sx, given Clindamyacin without relief. - Additional Pertinent History Primary Care Physician: [id number] - Allergy/Home Medications Allergies/Adverse Reactions: Allergies Allergy/AdvReac Type Severity Reaction Status Date / Time fluphenazine [From Prolixin] Allergy Rash Verified 11/16/19 05:10 Home Medications: Home Medications Paliperidone SUSTENNA* [Invega Sustenna*] 156 mg IM MONTHLY 11/18/19 [History Confirmed 11/18/19] PMH/Surg Hx/FS Hx/Imm Hx Previously Healthy: Yes Endocrine/Hematology History: Denies: Hx Anticoagulant Therapy, Hx Diabetes, Hx Thyroid Disease Cardiovascular History: Denies: Hx Hypertension Respiratory History: Denies: Hx Asthma, Hx Chronic Obstructive Pulmonary Disease (COPD) GI History: Denies: Hx Ulcer Musculoskeletal History: Reports: Hx Tendonitis - Left shoulder Sensory History: Denies: Hx Contacts or Glasses, Hx Legally Blind, Hx Deafness, Hx Hearing Aid Opthamlomology History: Denies: Hx Contacts or Glasses, Hx Legally Blind Psychiatric History: Reports: Hx Inpatient Treatment, Hx Community Mental Health Tx, Hx Schizophrenia, Hx Bipolar Disorder, Hx Substance Abuse - etoh Denies: Hx Anxiety, Hx Attention Deficit Hyperactivity Disorder, Hx Eating Disorder, Hx Depression, Hx Panic Disorder, Hx Post Traumatic Stress Disorder, Hx Suicide Attempt, Hx of Violent Episodes Against Others - Cancer History Hx Chemotherapy: No Hx Radiation Therapy: No - Surgical History Surgical History: Yes Surgery Procedure, Year, and Place: COLON POLYPS REMOVED - Immunization History Immunizations Up to Date: Yes Infectious Disease History: No Infectious Disease History: Reports: Hx Shingles Denies: Hx Hepatitis, Hx Human Immunodeficiency Virus (HIV), Hx of Known/ Suspected MRSA, Hx Tuberculosis, Hx Known/Suspected VRSA, Traveled Outside the US in Last 30 Days - Family History Known Family History: Negative: Cardiac Disease, Hypertension, Diabetes, Renal Disease, Respiratory Disease - Social History Occupation: Unemployed Lives: Alone Alcohol Use: Daily Alcohol Amount: 1L whiskey a lashonda Hx Substance Use: Yes Substance Use Type: Reports: Marijuana Substance Use Comment - Amount & Last Used: Daily Hx Tobacco Use: Yes Smoking Status (MU): Light Every Day Tobacco Smoker Review of Systems Negative: Fever, Chills Negative: Vomiting, Nausea Musculoskeletal: Negative - Pain Skin: Other - POSITVE: redness bilaterall lower extremities, swelling bilateral lower extremities Negative: Headache All Other Systems Reviewed And Are Negative: Yes Physical Exam - Summary Physical Exam Summary: Appearance: Well-appearing, Well-nourished, lying in bed comfortably Skin: Warm, dry, see Musculoskeletal exam for further detail. Eyes: sclera anicteric, no conjunctival pallor ENT: mucous membranes moist, pharynx appears normal Neck: Supple, nontender Respiratory: Clear to auscultation, no signs of respiratory distress Cardiovascular: Normal S1, S2. No murmurs. Normal distal pulses in tibial and radial bilaterally. Abdomen: Soft, nontender, normal active bowel sounds present Musculoskeletal: erythema, swelling, and warmth from the foot up to just below the R knee. Proximal to that there is swelling and warmth extending to the mid- thigh without warmth. Swelling and scabbed over abrasions of the R mid leg which is blotable and perhaps fluctuable. Neurological: A&Ox3, awake and alert, mentation is normal, speech is fluent and appropriate Psychiatric: affect is normal, does not appear anxious or depressed erythema, swelling, and warmth from the foot up to just below the R knee. Proximal to that there is swelling and warmth extending to the mid-thigh without warmth. Swelling and scabbed over abrasions of the R mid leg which is blotable and perhaps fluctuable. Triage Information Reviewed: Yes Vital Signs On Initial Exam: Initial Vitals Temp Pulse Resp BP Pulse Ox 97.6 F 94 18 154/95 98 11/18/19 22:27 11/18/19 22:27 11/18/19 22:27 11/18/19 22:27 11/18/19 22:27 Vital Signs Reviewed: Yes Procedures - Sedation Patient Received Moderate/Deep Sedation with Procedure: No Diagnostics - Vital Signs Vital Signs Temp Pulse Resp BP Pulse Ox 11/18/19 22:27 97.6 F 94 18 154/95 98 - Laboratory Result Diagrams: 11/18/19 23:04 11/18/19 23:04 Lab Statement: Any lab studies that have been ordered have been reviewed, and results considered in the medical decision making process. - Ultrasound Venous Doppler Study Ultrasound Interpretation Completed By: Radiologist Summary of Ultrasound Findings: 1. No acute DVT. 2. In the subcutaneous fat layer of the mid lateral aspect of the right calf is a complex fluid collection which is nonvascular measuring 6.3 x 1.1 x 3.3 cm, suspicious for subcutaneous hematoma. ED physician has reviewed this report. Re-Evaluation - Re-Evaluation First Eval Re-Evaluation Time: 00:39 Change: Unchanged Comment: Pt is increasingly becoming aggitated and aggressive towards hospital staff and threatened to call 911 to report improper holding and being unlawful towards him. He stated multiple times that he was not intoxicated but his Serum Alcohol level is currently a 283. He is not felt to be clinically able to make decisions regarding his care at this point, and has been medicated, Course/Dx - Course Course Of Treatment: This pt is a 53 Y/O M presenting to [facility] with a CC of increased swelling and redness in his L leg following an infection and recent hospitalization. He states that he was prescribed Clindamycin and has been on the ABx for the past 3 days without noticeable improvements. He denies any fevers, pain, chills, N/V, and headaches. He states that his RLE has begun to increase in inflammation and has not noticed any change in temperature of the leg. His PE found erythema, swelling, and warmth from the foot up to just below the R knee. Proximal to that there is swelling and warmth extending to the mid-thigh without warmth. Swelling and scabbed over abrasions of the R mid leg which is blotable and perhaps fluctuable. He has abnormalities in the following laboratory results: RBC, Hgb, Hct, MCH, MPV. Reval at 0040. Pt is increasingly becoming aggitated and aggressive towards hospital staff and threatened to call 911 to report improper holding and being unlawful towards him. He stated multiple times that he was not intoxicated but his Serum Alcohol level is currently a 283. His Venous Doppler Study shows the followin. No acute DVT. 2. In the subcutaneous fat layer of the mid lateral aspect of the right calf is a complex fluid collection which is nonvascular measuring 6.3 x 1.1 x 3.3 cm, suspicious for subcutaneous hematoma. He will be signed out to Dr. Keenan Morris MD from Dr. Keenan Baez MD at shift change 0700 2019 pending a reassesment and disposition with a Dx of cellulitis and acute alcohol intoxication. - Diagnoses Provider Diagnoses: Acute alcohol intoxication, Cellulitis Discharge ED - Sign-Out/Discharge Documenting (check all that apply): Patient Departure - discharge Signing out patient TO: Keenan Morris - Discharge Plan Condition: Improved Disposition: HOME Prescriptions: Cephalexin CAP* [Keflex CAP*] 500 mg PO QID #40 cap Patient Education Materials: Cellulitis (ED), Alcohol Intoxication (ED) Referrals: [facility] [Outside] [facility] [place] [Outside] Additional Instructions: Get help with your drinking problem. I am adding a 2nd antibiotic to treat the infection in the skin. RETURN TO THE EMERGENCY DEPARTMENT FOR CHANGING OR WORSENING SYMPTOMS. Follow up with your primary care physician in 2-3 days. - Billing Disposition and Condition Condition: IMPROVED Disposition: Home - Attestation Statements Document Initiated by Scribe: Yes Documenting Scribe: Estrada Manning Provider For Whom Brittani is Documenting (Include Credential): Keenan Baez MD Scribe Attestation: Estrada Sheikh, scribed for Keenan Baez MD on 11/20/19 at 0355. Scribe Documentation Reviewed: Yes Provider Attestation: The documentation as recorded by the Estrada ledezma accurately reflects the service I personally performed and the decisions made by me, Keenan Baez MD Status of Scribe Document: Viewed
[2019-11-18 23:12] LABS: ABS Basophils 0.1 10^3/ul (0-0.2); ABS Eosinophils 0.1 10^3/ul (0-0.6); ABS Lymphocytes 1.9 10^3/ul (1.0-4.8); ABS Monocytes 0.5 10^3/ul (0-0.8); Eosinophil % 0.9 %; Hematocrit 36 % (42-52); Hemoglobin 12.4 g/dL (14.0-18.0); Lymphocyte % 25.2 %; Mean Corpuscular HGB Conc 35 g/dL (31-36); Mean Corpuscular Hemoglobin 32 pg (27-31); Mean Corpuscular Volume 91 fL (80-94); Mean Platelet Volume 7.2 fL (7.4-10.4); Platelet Count 280 10^3/uL (150-450); Red Blood Count 3.93 10^6 /uL (4.18-5.48); Red Cell Distribution Width 15 % (10-15); White Blood Count 7.6 10^3/uL (3.5-10.8)
[2019-11-18 23:30] LABS: Urine Benzodiazepine Screen None Detected (None Detect); Urine Opiates Screen None Detected (None Detect)
[2019-11-18 23:30] LABS: Albumin 4.5 g/dL (3.2-5.2); Albumin/Globulin Ratio 1.7 (1-3); BUN/Creatinine Ratio 12.6 (8-20); Calcium 8.7 mg/dL (8.6-10.3); EGFR African American 111.5 (>60); EGFR Non-African American 92.1 (>60); Globulin 2.6 g/dL (2-4); Potassium 3.6 mmol/L (3.5-5.0); Total Bilirubin 0.2 mg/dL (0.2-1.0); Total Protein 7.1 g/dL (6.4-8.9)
--- OUTSIDE RECORDS SUMMARY | 2019-11-18 23:58 | XMS REPORT | Continuity of Care Document ---
:1965 External Reference #:[id number] Author Name Arnold Fitch M.D. (transmitted by agent of provider Felicity Crowder ) Address [address] [place] [address] Care Team Providers Name Role Phone Angélica Downey MD - Internal Medicine Care Team Information Internet Network Specialist [phone] Angélica Downey MD - Internal Medicine Care Team Information Internet Network Specialist Problems Active Problems Provider Date Gastroesophageal reflux disease Adams Patel M.D. Onset: 07/16/2011 Hyperlipidemia Adams Patel M.D. Onset: 11/27/2011 Depressive disorder Adams Patel M.D. Onset: 11/27/2011 Benign essential hypertension Adams Patel M.D. Onset: 11/27/2011 Nondependent alcohol abuse, continuous Adams Patel M.D. Onset: 2011 Obesity Adams Patel M.D. Onset: 11/24/2012 Shoulder joint pain Adams Patel M.D. Onset: 12/01/2012 Social History Type Date Description Comments Sex Unknown Tobacco Use Start: Unknown Never Smoked Cigarettes ETOH Use Pt has stopped drinking Recreational Drug Use Never Used Drugs Tobacco Use Start: Unknown End: Patient is a former smoker Unknown Smoking Status Reviewed: 08/28/19 Patient is a former smoker Exercise Type/Frequency Exercises regularly Allergies, Adverse Reactions, Alerts Active Allergies Reaction Severity Comments Date Prolixin Anaphylaxis, Shock 11/27/2011 Inactive Allergies NKDA 01/10/2011 Medications Description No Information Available Medications Administered in Office Medication SIG Qnty Indications Ordering Provider Date Depomedrol 40MG Denisha Mendoza M.D. 12/27/2017 Injection Immunizations CPT Code Status Date Vaccine Reaction Lot # [id number] Given 08/28/2019 Influenza Virus Vaccine, No immediate reaction [id number] Quadrivalent ([id number]), Derived From Cell [id number] Given 07/16/2011 Influenza Virus 3Yrs & Over [id number] Vital Signs Date Vital Result Comment 08/28/2019 1:26pm Height 73 inches 6'1" Weight 224.00 lb Heart Rate 66 /min BP Systolic Sitting 114 mmHg BP Diastolic Sitting 74 mmHg Body Temperature 97.2 F O2 % BldC Oximetry 98 % BMI (Body Mass Index) 29.6 kg/m2 01/13/2018 9:26am Height 73 inches 6'1" Weight 215.00 lb BP Systolic 122 mmHg BP Diastolic 82 mmHg Body Temperature 97.6 F Pain Level 1 BMI (Body Mass Index) 28.4 kg/m2 Results Description No Information Available Procedures Description No Information Available Medical Devices Description No Information Available Encounters Type Date Location Provider Dx Diagnosis Office Visit 08/28/2019 [employer] Internal Angélica Downey MD F25.0 Schizoaffective 1:20p Medicine - Ccmob disorder, bipolar type Z23 Encounter for immunization Z12.11 Encounter for screening for malignant neoplasm of colon Assessments Date Code Description Provider 08/28/2019 F25.0 Schizoaffective disorder, bipolar type Angélica Downey MD 08/28/2019 Z23 Encounter for immunization Angélica Downey MD 08/28/2019 Z12.11 Encounter for screening for malignant neoplasm of Angélica Downey MD colon Plan of Treatment 08/28/2019 - Angélica Downey MDF25.0 Schizoaffective disorder, bipolar typeComments :Continue to f/u with psychWill get labs baselineFollow up:Please print out lab slip F/U physical in 1-2 [id number] Encounter for [id number] Encounter for screening for malignant neoplasm of colonComments:Has had colonoscopy before and is scheduled to get it again due to polyps Functional Status Description No Information Available Mental Status Description No Information Available Referrals Description No Information Available
[2019-11-19] MEDS ORDERED: Haloperidol INJ IV/IM* 5 MG/ML AMP IM ONE (00:28)
[2019-11-19] MEDS ORDERED: LORazepam INJ* 2 MG/ML 1 ML VIAL IM ONE (00:28)
[2019-11-19] MEDS ORDERED: LORazepam INJ* 2 MG/ML 1 ML VIAL ONE ×2 (00:29→00:30)
[2019-11-19] MEDS ORDERED: diPHENhydraMINE IV* 50 MG/ML 1 ml VIAL (BENADRYL) ONE (00:30)
[2019-11-19] MEDS ORDERED: Haloperidol INJ IV/IM* 5 MG/ML AMP ONE (00:30)
[2019-11-19] MEDS ORDERED: Cephalexin CAP* 500 MG PO ONE (02:00)
--- NOTE | 2019-11-19 07:23 | ED ---
Progress - Progress Note Progress Note: Patient is a sign-out at 07:00 on 11/19/[address] Keenan Baez MD to Dr. Keenan Morris MD at shift change, pending sobriety, further workup, and disposition. At 07:43, patient is sober and ambulating with a steady gait. I spoke with him and re-offered admission but he preferred discharge with outpatient abx. Patient will be discharged with a diagnosis of cellulitis and alcohol intoxication. Follow up with PCP in 2-3 days. Re-Evaluation - Re-Evaluation First Eval Re-Evaluation Time: 00:39 Change: Unchanged Comment: Pt is increasingly becoming aggitated and aggressive towards hospital staff and threatened to call 911 to report improper holding and being unlawful towards him. He stated multiple times that he was not intoxicated but his Serum Alcohol level is currently a 283. He is not felt to be clinically able to make decisions regarding his care at this point, and has been medicated, Second Eval Re-Evaluation Time: 07:43 Change: Improved Comment: At 07:43, patient is sober and ambulating with a steady gait. Course/Dx - Course Course Of Treatment: This pt is a 53 Y/O M presenting to [facility] with a CC of increased swelling and redness in his L leg following an infection and recent hospitalization. He states that he was prescribed Clindamycin and has been on the ABx for the past 3 days without noticeable improvements. He denies any fevers, pain, chills, N/V, and headaches. He states that his RLE has begun to increase in inflammation and has not noticed any change in temperature of the leg. His PE found erythema, swelling, and warmth from the foot up to just below the R knee. Proximal to that there is swelling and warmth extending to the mid-thigh without warmth. Swelling and scabbed over abrasions of the R mid leg which is blotable and perhaps fluctuable. He has abnormalities in the following laboratory results: RBC, Hgb, Hct, MCH, MPV. Reval at 0040. Pt is increasingly becoming aggitated and aggressive towards hospital staff and threatened to call 911 to report improper holding and being unlawful towards him. He stated multiple times that he was not intoxicated but his Serum Alcohol level is currently a 283. His Venous Doppler Study shows the followin. No acute DVT. 2. In the subcutaneous fat layer of the mid lateral aspect of the right calf is a complex fluid collection which is nonvascular measuring 6.3 x 1.1 x 3.3 cm, suspicious for subcutaneous hematoma. He will be signed out to Dr. Keenan Morris MD from Dr. Keenan Baez MD at shift change 0700 2019 pending a reassesment and disposition with a Dx of cellulitis and acute alcohol intoxication. - Diagnoses Provider Diagnoses: Acute alcohol intoxication, Cellulitis Discharge ED - Sign-Out/Discharge Documenting (check all that apply): Patient Departure - Discharge, Receiving Sign-Out Receiving patient FROM: Keenan Baez - Patient is a sign-out at 07:00 on 11/[address] Keenan Baez MD to Dr. Keenan Morris MD at shift change, pending sobriety, further workup, and disposition. - Discharge Plan Condition: Improved Disposition: HOME Prescriptions: Cephalexin CAP* [Keflex CAP*] 500 mg PO QID #40 cap Patient Education Materials: Cellulitis (ED), Alcohol Intoxication (ED) Referrals: [facility] [Outside] [facility] [Outside] Additional Instructions: Get help with your drinking problem. I am adding a 2nd antibiotic to treat the infection in the skin. RETURN TO THE EMERGENCY DEPARTMENT FOR CHANGING OR WORSENING SYMPTOMS. Follow up with your primary care physician in 2-3 days. - Billing Disposition and Condition Condition: IMPROVED Disposition: Home - Attestation Statements Document Initiated by Brittani: Yes Documenting Scribe: Mary Kay Hill Provider For Whom Brittani is Documenting (Include Credential): Keenan Morris MD Scribe Attestation: I, Mary Kay Hill, scribed for Keenan Morris MD on 11/19/19 at 1114. Scribe Documentation Reviewed: Yes Provider Attestation: The documentation as recorded by the Mary Kay ledezma accurately reflects the service I personally performed and the decisions made by me, Keenan Morris MD Status of Scribe Document: Viewed
[2019-11-19 07:58] VITALS: BP 128/90
== END 2019-11-19 07:57 | disposition home or self-care (01) ==
LOC: ED 22:25
DX: L03.116 Cellulitis of left lower limb (principal); L03.115 Cellulitis of right lower limb; F10.929 Alcohol use, unspecified with intoxication, unspecified; F20.9 Schizophrenia, unspecified; F31.9 Bipolar disorder, unspecified; F17.200 Nicotine dependence, unspecified, uncomplicated; Z79.899 Other long term (current) drug therapy; Z88.8 Allergy status to other drugs, medicaments and biological substances
CPT/HCPCS: 36415; 80053; 80307; 80320; 85025; 96372; 99285; A9270-GY; G0480; J1200; J1630; J2060

== ENCOUNTER 2019-11-21 21:56 | Emergency (ER) | payer MEDICARE, MEDICAID ==
[2019-11-21] MEDS ORDERED: NS 0.9% 1000 ML** 1,000 ML IV ONE (22:09)
[2019-11-21] MEDS ORDERED: Thiamine INJ* 100 MG/ML 2 ML VIAL IM ONE (22:11)
[2019-11-21 22:33] LABS: ABS Basophils 0.1 10^3/ul (0-0.2); ABS Eosinophils 0.1 10^3/ul (0-0.6); ABS Lymphocytes 1.7 10^3/ul (1.0-4.8); ABS Monocytes 0.5 10^3/ul (0-0.8); ABS Neutrophils 2.7 10^3/ul (1.5-7.7); Eosinophil % 2.6 %; Hematocrit 38 % (42-52); Hemoglobin 12.7 g/dL (14.0-18.0); Lymphocyte % 33.1 %; Mean Corpuscular HGB Conc 33 g/dL (31-36); Mean Corpuscular Hemoglobin 31 pg (27-31); Mean Corpuscular Volume 93 fL (80-94); Mean Platelet Volume 7.3 fL (7.4-10.4); Platelet Count 285 10^3/uL (150-450); Red Blood Count 4.09 10^6 /uL (4.18-5.48); Red Cell Distribution Width 15 % (10-15)
--- NOTE | 2019-11-21 22:34 | ED ---
Substance Abuse/Use - HPI Summary HPI Summary: 53 year old male presents to the ED with a chief complaint of alcohol abuse. Patient has been drinking ETOH today, and reports excessively drinking alcohol since the age of 19. He says "I believe I have a serious alcohol problem." Patient had a lower extremity infection last week for which he was prescribed antibiotics. He claims it has improved. Patient smokes marijuana and tobacco. He denies CAD and HTN. PSHx of tooth extraction. FHx of alcohol abuse. - History Of Current Complaint Chief Complaint: EDSubstanceAbuse Stated Complaint: ETOH PER EMS Time Seen by Provider: 11/21/19 22:08 Hx Obtained From: Patient Onset/Duration of Drug/ETOH Abuse: Years Ingestion History: Type/Name Of Drug - ETOH Timing Of Abuse: Daily Character: Stuporous Aggravating Factor(s): Nothing Alleviating Factor(s): Nothing Associated Signs And Symptoms: Other: - Slurred speech - Allergies/Home Medications Allergies/Adverse Reactions: Allergies Allergy/AdvReac Type Severity Reaction Status Date / Time fluphenazine [From Prolixin] Allergy Rash Verified 11/23/19 16:41 Home Medications: Home Medications Ibuprofen TAB* [Advil TAB*] 200 mg PO Q6H PRN 11/12/19 [History Confirmed ] Paliperidone SUSTENNA* [Invega Sustenna*] 156 mg IM MONTHLY 11/18/19 [History Confirmed 11/23/19] Cephalexin CAP* [Keflex 500 CAP*] 500 mg PO QID 5 Days cap 11/25/19 [Rx] Cephalexin CAP* [Keflex CAP*] 500 mg PO QID #20 cap 11/25/19 [Rx] Cephalexin CAP* [Keflex CAP*] 500 mg PO QID 5 Days #20 cap 11/25/19 [Rx] Cephalexin CAP* [Keflex CAP*] 500 mg PO TID #20 cap 11/25/19 [Rx] PMH/Surg Hx/FS Hx/Imm Hx Endocrine/Hematology History: Denies: Hx Anticoagulant Therapy, Hx Diabetes, Hx Thyroid Disease Cardiovascular History: Denies: Hx Hypertension Respiratory History: Denies: Hx Asthma, Hx Chronic Obstructive Pulmonary Disease (COPD) GI History: Denies: Hx Ulcer Musculoskeletal History: Reports: Hx Tendonitis - Left shoulder Sensory History: Denies: Hx Contacts or Glasses, Hx Legally Blind, Hx Deafness, Hx Hearing Aid Opthamlomology History: Denies: Hx Contacts or Glasses, Hx Legally Blind Psychiatric History: Reports: Hx Inpatient Treatment, Hx Community Mental Health Tx, Hx Schizophrenia, Hx Bipolar Disorder, Hx Substance Abuse - etoh Denies: Hx Anxiety, Hx Attention Deficit Hyperactivity Disorder, Hx Eating Disorder, Hx Depression, Hx Panic Disorder, Hx Post Traumatic Stress Disorder, Hx Suicide Attempt, Hx of Violent Episodes Against Others - Cancer History Hx Chemotherapy: No Hx Radiation Therapy: No - Surgical History Surgery Procedure, Year, and Place: COLON POLYPS REMOVED Infectious Disease History: No Infectious Disease History: Reports: Hx Shingles Denies: Hx Hepatitis, Hx Human Immunodeficiency Virus (HIV), Hx of Known/ Suspected MRSA, Hx Tuberculosis, Hx Known/Suspected VRSA, Traveled Outside the [place] in Last 30 Days - Family History Known Family History: Negative: Cardiac Disease, Hypertension, Diabetes, Renal Disease, Respiratory Disease - Social History Alcohol Use: Daily Alcohol Amount: 1L whiskey a day Hx Substance Use: Yes Substance Use Type: Reports: Marijuana Substance Use Comment - Amount & Last Used: Daily Hx Tobacco Use: Yes Smoking Status (MU): Light Every Day Tobacco Smoker Review of Systems - ROS Summary Review of Systems Summary: Home Medications Medication Instructions Recorded Confirmed Type Ibuprofen TAB* [Advil TAB*] 200 mg PO Q6H PRN 11/12/19 11/18/19 History Clindamycin Cap(NF) [Clindamycin 300 mg PO QID #28 cap 11/13/19 11/18/19 Rx Cap 300 mg Cap(NF)] Clotrimazole 1% CREAM* 1 applic TOPICAL BID #2 tube 11/13/19 11/18/19 Rx [Clotrimazole 1%*] Paliperidone SUSTENNA* [Invega 156 mg IM MONTHLY 11/18/19 11/18/19 History Sustenna*] Cephalexin CAP* [Keflex CAP*] 500 mg PO QID #40 cap 11/19/19 Rx Negative: Fever Positive: Slurred Speech Positive: Other - Stuporous All Other Systems Reviewed And Are Negative: Yes Physical Exam - Summary Physical Exam Summary: General: Well-developed, Well-nourished male. No acute distress. Unkempt. Obviously intoxicated, slurring words. HEENT: Normocephalic, Atraumatic. Eyes: Conjuctiva normal, PERRL. Ears: TMs within normal limits. Nares: (-) discharge, (-) erythema. Oropharynx: Clear, mucous membranes moist, (-) exudates. Neck: Soft, FROM, (-) lymphadenopathy, (-) thyromegaly, (-) JVD. Cardiovascular: Normal sinus rhythm, (-) murmur. Lungs: Clear to auscultation bilaterally (-) wheezes, (-) rales, (-) rhonchi. Abdomen: Soft, non-tender, non-distended, (-) organomegaly, normal bowel sounds. Back: (-) CVA tenderness Extremities: Significant swelling and erythema with healing wound on RLE. Mild warmth within demarcated area. LLE has mild erythema and warmth medially. Skin: Warm, dry, (-) rash. Neuro: Alert and oriented x3, no focal deficits. Psychiatric: Mood normal, affect odd. Triage Information Reviewed: Yes Vital Signs On Initial Exam: Initial Vitals Temp Pulse Resp BP Pulse Ox 98.5 F 84 14 154/98 99 11/21/19 21:58 11/21/19 21:58 11/21/19 21:58 11/21/19 21:58 11/21/19 21:58 Vital Signs Reviewed: Yes Procedures - Sedation Patient Received Moderate/Deep Sedation with Procedure: No Diagnostics - Vital Signs Vital Signs Temp Pulse Resp BP Pulse Ox 11/21/19 21:58 98.5 F 84 14 154/98 99 - Laboratory Result Diagrams: 11/21/19 22:19 11/21/19 22:19 Lab Statement: Any lab studies that have been ordered have been reviewed, and results considered in the medical decision making process. Re-Evaluation - Re-Evaluation First Eval Re-Evaluation Time: 23:25 Change: Worse Comment: More agitated. Demands admission to mental health. Refuses to stay in room. Repetitive. Argumentative. Unable to be calmed or directed. B52 administered. Course/Dx - Course Course Of Treatment: 53 year old male with acute alcohol intoxication. he states he is here to get help with his drinking. he is obviously intoxicated. patient easily becomes agitated and unable to redirect or deescalate. chemical restraint ordered. patient rested comfortably the rest of the shift. no significant findings on physical exam. labs show initial AIDEN of 387. patient signed out at change of shift awaiting sobriety and reevaluation. - Diagnoses Provider Diagnoses: Alcohol intoxication Discharge ED - Sign-Out/Discharge Documenting (check all that apply): Sign-Out Patient Signing out patient TO: Sandhya Gibson - Sign out from Dr. Caldwell to Dr. Gibson at change of shifts at 0700 on 11/22/19. - Discharge Plan Condition: Stable Disposition: HOME Patient Education Materials: Alcohol Intoxication (ED) Referrals: [facility] [Outside] No Primary Care Phys,NOPCP [Primary Care Provider] - Additional Instructions: stay well hydrated - drink plenty of non-alcoholic non-caffinated beverage you have been given the contact information for the [facility] [place] - it is recommended you contact them if you would like help with sobriety you have been given contact information for the physician referral center - this office can assist you with a primary care provider - Billing Disposition and Condition Condition: STABLE Disposition: Home - Attestation Statements Document Initiated by Scribe: Yes Documenting Scribe: Hudson Jaeger Provider For Whom Scribe is Documenting (Include Credential): Christel Caldwell MD Scribe Attestation: IHudson, scribed for Christel Caldwell MD on 11/26/19 at 0017. Scribe Documentation Reviewed: Yes Provider Attestation: The documentation as recorded by the scribeHudson accurately reflects the service I personally performed and the decisions made by me, Christel Caldwell MD Status of Scribe Document: Viewed - Assessment for Patient Restraint Face to Face Encounter Date: 11/22/19 Face to Face Encounter Time: 00:25 Evaluation of the Patient's Immediate Situation: Patient increasing agitation, repetitive, unable to deescalate or follow rules. Danger to himself. Patient's Reaction to Intervention: Patient was able to calm down, stay in bed, and rest comfortably after chemical restraint. Patient's Medication and Behavioral Condition: Acute alcohol intoxication. Sedated, resting comfortably. Evaluate Need for Continued Restraint: Terminate
[2019-11-21] MEDS ORDERED: LORazepam TAB(*) 1 MG PO ONE (22:35)
[2019-11-21 22:37] LABS: Albumin 4.3 g/dL (3.2-5.2); Anion Gap 8 mmol/L (2-11); CO2 Carbon Dioxide 23 mmol/L (22-32); Calcium 8.6 mg/dL (8.6-10.3); Chloride 109 mmol/L (101-111); Potassium 3.9 mmol/L (3.5-5.0); Sodium 140 mmol/L (135-145)
[2019-11-21 22:43] LABS: ALT 14 U/L (7-52); AST 18 U/L (13-39); Albumin/Globulin Ratio 1.6 (1-3); Alkaline Phosphatase 54 U/L (34-104); BUN/Creatinine Ratio 11.1 (8-20); Blood Urea Nitrogen 10 mg/dL (6-24); EGFR African American 107.2 (>60); EGFR Non-African American 88.6 (>60); Globulin 2.7 g/dL (2-4); Glucose 114 mg/dL (70-100)
[2019-11-21 22:50] LABS: Acetaminophen < 15 mcg/mL; Alcohol 387 mg/dL (<10); Salicylate < 2.50 mg/dL (<30)
[2019-11-21] MEDS ORDERED: Haloperidol INJ IV/IM* 5 MG/ML AMP IM ONE (23:25)
[2019-11-21] MEDS ORDERED: diPHENhydraMINE IV* 50 MG/ML 1 ml VIAL (BENADRYL) IM ONE (23:25)
[2019-11-21] MEDS ORDERED: LORazepam INJ* 2 MG/ML 1 ML VIAL IM ONE (23:25)
[2019-11-21] MEDS ORDERED: Lorazepam PYXIS KEY ONE (23:29)
--- NOTE | 2019-11-22 07:48 | ED ---
Progress - Progress Note Progress Note: Patient is a sign out from Doctor Javi to Dr. Gibson at change of shifts at 0700 on 11/22/19, pending sobriety and dispo. 0750 - resting no complains 1000 - pt has had 2 breakfasts - requesting discharge home given info for drug and alcohol counsil Re-Evaluation - Re-Evaluation First Eval Re-Evaluation Time: 23:25 Change: Worse Comment: More agitated. Demands admission to mental health. Refuses to stay in room. Repetitive. Argumentative. Unable to be calmed or directed. B52 administered. Course/Dx - Diagnoses Provider Diagnoses: Alcohol intoxication Discharge ED - Sign-Out/Discharge Documenting (check all that apply): Patient Departure - Discharge Plan Condition: Stable Disposition: HOME Patient Education Materials: Alcohol Intoxication (ED) Referrals: No Primary Care Phys,NOPCP [Primary Care Provider] - [facility] [Outside] Additional Instructions: stay well hydrated - drink plenty of non-alcoholic non-caffinated beverage you have been given the contact information for the [facility] [place] - it is recommended you contact them if you would like help with sobriety you have been given contact information for the physician referral center - this office can assist you with a primary care provider - Billing Disposition and Condition Condition: STABLE Disposition: Home - Attestation Statements Document Initiated by Brittani: Yes Documenting Scribe: Hudson Jaeger Provider For Whom Brittani is Documenting (Include Credential): Arthur Ledezma Attestation: Hudson Sheikh , scribed for Arthur on 11/22/19 at 0957. Scribe Documentation Reviewed: Yes Provider Attestation: The documentation as recorded by the Hudson ledezma accurately reflects the service I personally performed and the decisions made by Arthur rojas Status of Scribe Document: Viewed
[2019-11-22 09:39] VITALS: BP 151/88
== END 2019-11-22 10:16 | disposition home or self-care (01) ==
LOC: ED 21:56
DX: F10.129 Alcohol abuse with intoxication, unspecified (principal); F20.9 Schizophrenia, unspecified; F31.9 Bipolar disorder, unspecified; F17.200 Nicotine dependence, unspecified, uncomplicated; Z79.899 Other long term (current) drug therapy; Z88.8 Allergy status to other drugs, medicaments and biological substances
CPT/HCPCS: 36415; 80053; 80320; 80329; 83605; 85025; 96372; 99285; G0480; J1200; J1630; J2060; J3411

== ENCOUNTER 2019-11-23 16:36 | Inpatient (IN) | payer MEDICARE, MEDICAID ==
[2019-11-23 17:22] LABS: ABS Basophils 0.1 10^3/ul (0-0.2); ABS Lymphocytes 0.9 10^3/ul (1.0-4.8); ABS Monocytes 0.5 10^3/ul (0-0.8); ABS Neutrophils 5.3 10^3/ul (1.5-7.7); Eosinophil % 0.3 %; Hematocrit 35 % (42-52); Hemoglobin 12.3 g/dL (14.0-18.0); Lymphocyte % 13.9 %; Mean Corpuscular HGB Conc 35 g/dL (31-36); Mean Corpuscular Hemoglobin 32 pg (27-31); Mean Corpuscular Volume 90 fL (80-94); Mean Platelet Volume 7.3 fL (7.4-10.4); Platelet Count 272 10^3/uL (150-450); Red Blood Count 3.87 10^6 /uL (4.18-5.48); Red Cell Distribution Width 15 % (10-15); White Blood Count 6.8 10^3/uL (3.5-10.8)
--- NOTE | 2019-11-23 17:27 | ED ---
Lower Extremity - HPI Summary HPI Summary: The patient is a 53 y/o M presenting to [facility] with a cc of increased swelling and erythema of the RLE initially onset over two weeks ago. He was seen on 2019 for cellulitis that was previously supposed to be treated with Clindamycin , but the patient was not medication-compliant. He had negative BLE DVT US at that time. The patient was admitted during that visit but left AMA prior to receiving complete treatment, although there was improvement while he was here. He has returned twice to the ED since for worsening symptoms, and he was prescribed Keflex on 11/19/2019. Now, the erythema, swelling, and pain is worsening in the RLE extending from just below the knee to the foot. He states he has been taking the Keflex QID, but he hasnt been using the Clotrimazole. He denies any fevers. Aching pain currently rated 6/10 in severity. PMHx: schizophrenia, bipolar disorder, alcoholism. Current smoker, daily EtOH, marijuana use. Medications reviewed. Allergies noted. - History of Current Complaint Chief Complaint: EDExtremityLower Stated Complaint: LEGS SWELLING PER PT Time Seen by Provider: 11/23/19 16:46 Hx Obtained From: Patient Mechanism Of Injury: Other - known cellulitis for 2+ weeks Onset/Duration: Still Present Severity Initially: Mild Severity Currently: Moderate Pain Intensity: 6 Pain Scale Used: 0-10 Numeric Timing: Constant Location: Is Discrete @ - RLE extending from knee to ankle Character Of Pain: Aching Associated Signs And Symptoms: Positive: Swelling, Redness. Negative: Fever Aggravating Factor(s): Other - medication non-compliant Alleviating Factor(s): Nothing - Allergies/Home Medications Allergies/Adverse Reactions: Allergies Allergy/AdvReac Type Severity Reaction Status Date / Time fluphenazine [From Prolixin] Allergy Rash Verified 11/23/19 16:41 PMH/Surg Hx/FS Hx/Imm Hx Endocrine/Hematology History: Denies: Hx Anticoagulant Therapy, Hx Diabetes, Hx Thyroid Disease Cardiovascular History: Denies: Hx Hypertension Respiratory History: Denies: Hx Asthma, Hx Chronic Obstructive Pulmonary Disease (COPD) GI History: Denies: Hx Ulcer Musculoskeletal History: Reports: Hx Tendonitis - Left shoulder Sensory History: Denies: Hx Contacts or Glasses, Hx Legally Blind, Hx Deafness, Hx Hearing Aid Opthamlomology History: Denies: Hx Contacts or Glasses, Hx Legally Blind Psychiatric History: Reports: Hx Inpatient Treatment, Hx Community Mental Health Tx, Hx Schizophrenia, Hx Bipolar Disorder, Hx Substance Abuse - etoh Denies: Hx Anxiety, Hx Attention Deficit Hyperactivity Disorder, Hx Eating Disorder, Hx Depression, Hx Panic Disorder, Hx Post Traumatic Stress Disorder, Hx Suicide Attempt, Hx of Violent Episodes Against Others - Cancer History Hx Chemotherapy: No Hx Radiation Therapy: No - Surgical History Surgical History: Yes Surgery Procedure, Year, and Place: COLON POLYPS REMOVED Infectious Disease History: No Infectious Disease History: Reports: Hx Shingles Denies: Hx Hepatitis, Hx Human Immunodeficiency Virus (HIV), Hx of Known/ Suspected MRSA, Hx Tuberculosis, Hx Known/Suspected VRSA, Traveled Outside the [place] in Last 30 Days - Family History Known Family History: Negative: Cardiac Disease, Hypertension, Diabetes, Renal Disease, Respiratory Disease - Social History Alcohol Use: Daily Alcohol Amount: 1L whiskey a day Hx Substance Use: Yes Substance Use Type: Reports: Marijuana Substance Use Comment - Amount & Last Used: Daily Hx Tobacco Use: Yes Smoking Status (MU): Light Every Day Tobacco Smoker Review of Systems Negative: Fever Positive: Myalgia - RLE, swelling Positive: Other - redness of RLE All Other Systems Reviewed And Are Negative: Yes Physical Exam - Summary Physical Exam Summary: Constitutional: Well-developed, Well-nourished, Alert. (-) Distressed Skin: Erythema of the RLE HENT: Normocephalic; Atraumatic Eyes: Conjunctiva normal Neck: Musculoskeletal ROM normal neck. (-) JVD, (-) Stridor, (-) Nuchal rigidity Cardio: Rhythm regular, rate normal, Heart sounds normal; Intact distal pulses; Radial pulses are 2+ and symmetric. (-) Murmur Pulmonary/Chest wall: Effort normal. (-) Respiratory distress, (-) Wheezes, (-) Rales Abd: Soft, (-) tenderness, (-) Distension, (-) Guarding, (-) Rebound Musculoskeletal: Mild soft and diffuse swelling of the RLE to the knee, Fungal infection of the toenails, Erythema extending just proximal of the knee above the previously marked line Lymph: (-) Cervical adenopathy Neuro: Alert, Oriented x3 Psych: Mood and affect Normal Triage Information Reviewed: Yes Vital Signs On Initial Exam: Initial Vitals Temp Pulse Resp BP Pulse Ox 98.9 F 93 19 157/85 98 11/23/19 16:38 11/23/19 16:38 11/23/19 16:38 11/23/19 16:38 11/23/19 16:38 Vital Signs Reviewed: Yes Procedures - Sedation Patient Received Moderate/Deep Sedation with Procedure: No Diagnostics - Vital Signs Vital Signs Temp Pulse Resp BP Pulse Ox 11/23/19 16:38 98.9 F 93 19 157/85 98 - Laboratory Result Diagrams: 11/23/19 17:15 11/23/19 17:15 Lab Statement: Any lab studies that have been ordered have been reviewed, and results considered in the medical decision making process. Re-Evaluation - Re-Evaluation First Eval Re-Evaluation Time: 19:30 Comment: Discussed results and plan for admission Lower Extremity Course/Dx - Course Course Of Treatment: 53 y/o male w hx EtOH abuse, schizoaffective d/o, recent cellulitis p/w continued cellulitis of RLE. - patient has been on multiple antibiotics including Keflex and clindamycin, although inconsistent use. Recent admission for similar but left AMA. Concern for progression of cellulitis secondary to poor compliance of medications. Patient agreeable to admission for IV antibiotics and observation. - Diagnoses Provider Diagnoses: Cellulitis of right leg - Physician Notifications Discussed Care Of Patient With: Brennon Blanca - hospitalist Time Discussed With Above Provider: 19:20 Instructed by Provider To: Other - I discussed the patients case with Dr. Blanca , who accepts the patient for admission. Discharge ED - Sign-Out/Discharge Documenting (check all that apply): Patient Departure - Patient accepted for admission by Dr. Blanca. - Discharge Plan Condition: Stable Disposition: ADMITTED TO [facility] Referrals: No Primary Care Phys,NOPCP [Primary Care Provider] - - Billing Disposition and Condition Condition: STABLE Disposition: Admitted to [facility] - Attestation Statements Document Initiated by Scribe: Yes Documenting Scribe: Bindu Ferrell Provider For Whom Scribe is Documenting (Include Credential): Dr. Juan Carlos Villa MD Scribe Attestation: Bindu Sheikh, scribed for Dr. Juan Carlos Villa MD on 11/23/19 at 2139. Scribe Documentation Reviewed: Yes Provider Attestation: The documentation as recorded by the scribe, Bindu Ferrell accurately reflects the service I personally performed and the decisions made by me, Dr. Juan Carlos Villa MD Status of Scribtabitha Document: Viewed
[2019-11-23 17:38] LABS: Albumin 4.7 g/dL (3.2-5.2); Potassium 3.6 mmol/L (3.5-5.0); Total Bilirubin 0.3 mg/dL (0.2-1.0)
[2019-11-23 17:44] LABS: Albumin/Globulin Ratio 1.8 (1-3); BUN/Creatinine Ratio 11.1 (8-20); EGFR African American 107.2 (>60); EGFR Non-African American 88.6 (>60); Globulin 2.6 g/dL (2-4); Total Protein 7.3 g/dL (6.4-8.9)
[2019-11-23] MEDS ORDERED: Clindamycin 600 MG/D5W BAG(*) 600 MG/50 ML BAG IV ONE (18:09)
[2019-11-23] MEDS ORDERED: Acetaminophen TAB* 325 MG PO PRN (19:51)
[2019-11-23] MEDS ORDERED: Lorazepam PYXIS KEY PRN (19:59)
[2019-11-23] MEDS ORDERED: LORazepam INJ* 2 MG/ML 1 ML VIAL IV PUSH PRN (19:59)
[2019-11-23] MEDS ORDERED: Enoxaparin(*) 40 MG/0.4 ML SYR SUBCUT SCH (20:00)
[2019-11-23] MEDS ORDERED: Zosyn 3.375 GM IV - ED ONCE IVPB ONE ×2 (21:00)
--- NOTE | 2019-11-23 21:05 | HP ---
HISTORY AND PHYSICAL: DATE OF ADMISSION: 11/23/19 REASON FOR ADMISSION: Lower extremity pain and erythema. HISTORY OF PRESENT ILLNESS: This is a 53-year-old male with history of alcohol use disorder, questionable schizophrenia, recent admission for cellulitis, here for lower extremity pain and redness. The patient was recently hospitalized from 11/12/19 to 11/13/19 and noted to have right lower extremity cellulitis. The patient was discharged on clindamycin. At that time, the patient reports that he took oral antibiotics for about 7 days and was doing better, but started noting worsening erythema in the leg today with some pain and came back to the ER. The patient also has a history of schizoaffective disorder, depression and alcohol abuse. The patient reports that he drinks responsibly and usually only drinks a pack of beer with 2 shots of alcohol every day or when he is able to when he has the money. However, on Saturday reports that he was irresponsible and drank 1.5 L of whisky. Also noted to have ER visit yesterday for alcohol intoxication. The patient reports that he has never had any alcohol withdrawal seizures but occasionally gets tremors. PAST MEDICAL HISTORY: 1. Alcohol use disorder. 2. Schizoaffective disorder. 3. Recent cellulitis. MEDICATION LIST: The patient denies taking any routine medications other than over- the-counter medications as needed. We will also confirm this with his list. FAMILY HISTORY: Denies any significant family history. Denies cardiac history in the family. SOCIAL HISTORY: The patient drinks a pack of beer a day with couple of shots of alcohol when he has money. Also reports that he drank 1.5 L of hard alcohol on Saturday and did not so well. The patient reports that he smokes pot and mixes it with tobacco. Denies any IV drug use or any other recreational drug use. REVIEW OF SYSTEMS: As described above with lower extremity pain, erythema, and fatigue. Other review of systems noted to be negative. Denies any chest pain or shortness of breath. Other 14-point review of systems noted to be negative. PHYSICAL EXAMINATION VITAL SIGNS: Temperature 98.9, pulse 93, respiratory rate 19, oxygen saturation 98% on room air, and blood pressure 157/85. HEENT: NC/AT. LUNGS: Clear to auscultation. HEART: S1, S2 present. Tachycardic at the time of exam. ABDOMEN: Soft. EXTREMITIES: Noted to have right lower extremity erythema and edema with warmth extending from the foot to the knee. The patient also noted to have an excoriated area, mid leg. Good pulses bilaterally. NEUROLOGIC: Alert and oriented x3. The patient noted to have some hand tremors but otherwise alert, oriented, and able to give history. DIAGNOSTIC STUDIES/LAB DATA: WBC 6.8, hemoglobin 12.3, hematocrit 35, platelets noted to be 272. Sodium 136, potassium 3.6, chloride 104, CO2 of 25, BUN 10, creatinine 0.9. ASSESSMENT AND PLAN: This is a 53-year-old male with history of schizoaffective disorder, recent hospitalization for cellulitis, here with: 1. Right lower extremity cellulitis: The patient was improving on oral antibiotics with current worsening as the patient has already failed p.o. antibiotics as an outpatient. We will keep him in the hospital for IV antibiotics. The patient received a dose of clindamycin in the emergency room; however, the patient has been on p.o. clindamycin as an outpatient as well. We will switch the patient to IV Zosyn currently and see how he does and will adjust antibiotics based on clinical course. 2. We will also get blood cultures and lactate on the patient. 3. Alcohol use disorder with possibility of alcohol withdrawal: The patient's recent alcohol level was 283. The patient also reports recently drinking heavily on Saturday. We will keep him on close withdrawal monitoring and will use Ativan 1 mg every 2 hours as needed for withdrawal and adjust protocol based on his symptoms. The patient denies that he needs medications for withdrawal but already noted to be shaky and hypertensive in the ER. 4. DVT prophylaxis with Lovenox. [id number]/[facility] #: [id number] [facility] MEDICAL CENTERLiyah
[2019-11-23] MEDS ORDERED: Lorazepam PYXIS KEY ONE (21:07)
[2019-11-23] MEDS: NS 0.9% 1000 ML** 1,000 ML IV SCH ×2 (21:19→23:35)
[2019-11-24] MEDS ORDERED: LORazepam INJ* 2 MG/ML 1 ML VIAL IV PUSH SCH (01:18)
[2019-11-24] MEDS: Piperacillin/Tazobac ADVAN(*) 3.375 GM in NS 0.9% 100 ML* 100 ML IVPB SCH ×3 (01:24→17:25)
[2019-11-24 04:32] LABS: ABS Eosinophils 0.1 10^3/ul (0-0.6); ABS Lymphocytes 0.9 10^3/ul (1.0-4.8); ABS Monocytes 0.6 10^3/ul (0-0.8); ABS Neutrophils 3.7 10^3/ul (1.5-7.7); Eosinophil % 0.9 %; Hematocrit 34 % (42-52); Hemoglobin 11.7 g/dL (14.0-18.0); Lymphocyte % 17.7 %; Mean Corpuscular HGB Conc 34 g/dL (31-36); Mean Corpuscular Hemoglobin 32 pg (27-31); Mean Corpuscular Volume 92 fL (80-94); Mean Platelet Volume 8.1 fL (7.4-10.4); Nucleated Red Blood Cells % 0.1; Platelet Count 246 10^3/uL (150-450); Red Cell Distribution Width 15 % (10-15); White Blood Count 5.3 10^3/uL (3.5-10.8)
[2019-11-24 04:46] LABS: Calcium 8.2 mg/dL (8.6-10.3); Potassium 3.7 mmol/L (3.5-5.0)
[2019-11-24 04:51] LABS: BUN/Creatinine Ratio 11.8 (8-20); EGFR African American 92.8 (>60); EGFR Non-African American 76.7 (>60)
[2019-11-24] MEDS ORDERED: LORazepam INJ* 2 MG/ML 1 ML VIAL IV PUSH PRN ×2 (10:00)
[2019-11-24] MEDS ORDERED: Lorazepam PYXIS KEY PRN (10:04)
--- NOTE | 2019-11-24 10:41 | PN ---
Subjective Date of Service: 11/24/19 Interval History: LE erythema and pain improving.Still ongoing pain and redness in toes Objective Active Medications: Acetaminophen (Tylenol Tab*) 650 mg PO Q4H PRN PRN Reason: MILD PAIN or TEMP > 100.4 Last Admin: 11/24/19 06:34 Dose: 650 mg Enoxaparin Sodium (Lovenox(*)) 40 mg SUBCUT BEDTIME DANISH Piperacillin Sod/Tazobactam (Sod 3.375 gm/ Sodium Chloride) 100 mls @ 25 mls/ hr IVPB Q8H DANISH Last Admin: 11/24/19 10:19 Dose: 25 mls/hr Lorazepam (Ativan Inj*) 1 mg IV PUSH Q2H PRN PRN Reason: WITHDRAWAL Miscellaneous (Ativan Pyxis Barnes) 1 ea N/A .PYXIS BARNES PRN PRN Reason: PER PROTOCOL Vital Signs - 8 hr 11/24/19 11/24/19 03:15 05:13 Temperature 98.3 F 98.0 F Pulse Rate 87 71 Respiratory 17 16 Rate Blood Pressure 140/71 122/69 (mmHg) O2 Sat by Pulse 100 100 Oximetry Oxygen Devices in Use Now: None Eyes: No Scleral Icterus Ears/Nose/Mouth/Throat: NL Teeth, Lips, Gums Neck: NL Appearance and Movements; NL JVP Respiratory: Symmetrical Chest Expansion and Respiratory Effort Cardiovascular: NL Sounds; No Murmurs; No JVD Abdominal: NL Sounds; No Tenderness; No Distention Extremities: No Edema - RLE extremity erythema and warmth improving, - Neurological: Alert and Oriented x 3 Result Diagrams: 11/24/19 03:56 11/24/19 03:56 Assess/Plan/Problems-Billing Assessment: - Patient Problems (1) Cellulitis Current Visit: Yes Status: Acute Code(s): L03.90 - CELLULITIS, UNSPECIFIED SNOMED Code(s): 514210446 Comment: Continue IV Zosyn Improving Foot X ray to r/o osteo /pain (2) Alcohol withdrawal Current Visit: Yes Status: Acute Code(s): F10.239 - ALCOHOL DEPENDENCE WITH WITHDRAWAL, UNSPECIFIED SNOMED Code(s): 172818438 Comment: Ativan PRN
--- NOTE | 2019-11-24 11:33 | PTEDU ---
Patient Name: RENARD SYED KUNALRENARD selected video: Breast Biopsy to view on 11/24/2019 at 11:32:09 AM from [email or web address]
--- NOTE | 2019-11-24 11:41 | PTEDU ---
Patient Name: RENARD SYED KUNAL, PAUL selected video: Abdominal Aortic Aneurysm - Open Repair to view on 11/24/2019 at 11: 40:15 AM from [email or web address]
--- NOTE | 2019-11-24 15:26 | PTEDU ---
Patient Name: RENARD SYED KUNALRENARD selected video: Foot Care for People with Diabetes to view on 11/24/2019 at 3:24:46 PM from [email or web address]
--- NOTE | 2019-11-24 15:49 | PTEDU ---
Patient Name: RENARD SYED KUNAL, PAUL selected video: Abdominal Aortic Aneurysm - Open Repair to view on 11/24/2019 at 3:4 7:49 PM from [email or web address]
--- NOTE | 2019-11-24 15:52 | PTEDU ---
Patient Name: RENARD SYED KUNAL, PAUL selected video: Hypothyroidism to view on 11/24/2019 at 3:50:34 PM from [email or web address]
--- NOTE | 2019-11-24 17:18 | PN ---
Progress Note - Progress Note Date of Service: 11/24/19 Note: Please see full dictated report for full detail. R great toe fracture. Appropriate to treat nonop with fracture boot, WBAT in boot. Recurrent cellulitis of RLE, involvement of R great toe. There dry fissured skin but no obvious open wound of the toe. F/U Dr Oshea in 1 week
[2019-11-24 17:26] LABS: C Reactive Protein 4.47 mg/L (<8.01)
--- NOTE | 2019-11-24 18:07 | CONS ---
CONSULTATION REPORT: DATE OF CONSULT: 11/24/19 REASON FOR CONSULT: Lower extremity pain and erythema. HISTORY OF PRESENT ILLNESS: The patient is a 53-year-old male with history of alcohol use disorder, schizophrenia, recent admission for cellulitis, here today for recurrent right lower extremity redness and pain. He was seen in the ER 11/05 and then hospitalized from 11/12/19 to 11/13/19 due to right lower extremity cellulitis. He has been on keflex and clindamycin outpatient, though has not taken these medications entirely as prescribed. The patient took oral antibiotics for 7 days with improvement after last admission, though noted worsening of erythema again in the leg over the past week and returned to the ER on 11/23/19. Reports that he tripped roughly a week ago causing laceration to the right vincent which has since scabbed over without drainage. Reports erythema was present intermittently before suffering this wound. His 11/05 ER visit demonstrate no fracture of the right great toe. He does not recall injuring the toe though has had an enlarged and painful right great toe since the end of October, prior to fracture. Timeline of events is very unclear, patient admits he is not entirely sure and his answers regarding timeline and onset of symptoms are inconsistent. Reports that he has decreased sensation of bilateral lower extremities for many months, he is unsure what this is from but there is no acute change. PAST MEDICAL HISTORY: Alcohol use disorder, schizoaffective disorder, recent cellulitis. FAMILY HISTORY: Denies significant family history. No cardiac history in the family. SOCIAL HISTORY: Daily beer and liquor drinker. This Saturday, he drank 1.5 L of whiskey. Smokes marijuana and tobacco. No IV drugs or recreational drug use. Lives alone in an apartment, not currently employed, spends his days walking around town and working out. REVIEW OF SYSTEMS: General: Denies fever or chills. HEENT: Denies headache. Cardiac: Denies any chest pain. Respiratory: Denies shortness of breath. Abdomen: Denies any nausea, vomiting, diarrhea. Musculoskeletal: Positive for right great toe pain. Skin: Positive for erythema of the right foot and lower extremity. Neuro: Decreased sensation bilateral lower extremities. PHYSICAL EXAM: Vital Signs: Temperature 97.7, pulse rate 67, respiratory rate 16, oxygen saturation 100%, blood pressure 132/74. General: No acute distress. Head: Normocephalic, atraumatic. Lungs: Clear to auscultation bilaterally. Heart: S1, S2. Abdomen: Nondistended. Extremities: Bilateral upper extremities and left lower extremity with skin envelope intact. Nontender to palpation. Able to flex and extend all joints without any pain. Right lower extremity: There is mild erythema mid calf distally. There is a quarter sized scab to the anterior mid-vincent. There is some dry skin with fissuring over the lateral aspect of the great toe, no discharge. There is no ecchymosis. The great toe is enlarged and nontender to palpation. He is able to flex and extend at MCP without pain. f/e ankle, knee, and hip without pain. Calves supple and nontender. The patient has decreased sensation bilateral lower extremities from mid calf distally. DP pulses 2+. Capillary refill less than 2 seconds distally. DIAGNOSTIC STUDIES: There is a fracture at the base of the proximal phalanx of the first digit. ASSESSMENT: Proximal phalanx fracture, first toe on the right side. Cellulitis PLAN: The patient can be weightbearing as tolerated in a fracture boot. Boot was ordered to his bedside. Continue treatment for cellulitis per the medicine team. Cellulitis seems to be improving, but as toe was potentially enlarged and painful prior to fracture close follow up as an outpatient is necessary. The patient needs to pay close attention to his feet with daily feet checks due to neuropathy. Case was discussed with Dr. Elmo Oshea, who agrees with assessment and plan, f/u Dr Oshea outpatient in 7-10 days, sooner with concerns. JESSE BARROS [id number]/[facility] #: [id number] GUILLERMO
[2019-11-24] MEDS ORDERED: Enoxaparin(*) 40 MG/0.4 ML SYR SUBCUT SCH (21:00)
[2019-11-25] MEDS: Piperacillin/Tazobac ADVAN(*) 3.375 GM in NS 0.9% 100 ML* 100 ML IVPB SCH ×2 (00:48→05:44)
[2019-11-25 06:09] LABS: ABS Basophils 0.1 10^3/ul (0-0.2); ABS Eosinophils 0.1 10^3/ul (0-0.6); ABS Lymphocytes 1.3 10^3/ul (1.0-4.8); ABS Monocytes 0.5 10^3/ul (0-0.8); ABS Neutrophils 3.6 10^3/ul (1.5-7.7); Hematocrit 36 % (42-52); Hemoglobin 12.3 g/dL (14.0-18.0); Lymphocyte % 23.8 %; Mean Corpuscular HGB Conc 34 g/dL (31-36); Mean Corpuscular Hemoglobin 32 pg (27-31); Mean Corpuscular Volume 93 fL (80-94); Platelet Count 248 10^3/uL (150-450); Red Blood Count 3.88 10^6 /uL (4.18-5.48); Red Cell Distribution Width 15 % (10-15); White Blood Count 5.6 10^3/uL (3.5-10.8)
[2019-11-25 06:28] LABS: BUN/Creatinine Ratio 10.3 (8-20); C Reactive Protein 2.28 mg/L (<8.01); Calcium 8.7 mg/dL (8.6-10.3); EGFR African American 87.8 (>60); EGFR Non-African American 72.6 (>60); Potassium 3.9 mmol/L (3.5-5.0)
[2019-11-25 07:21] VITALS: BP 135/80
--- NOTE | 2019-11-25 08:49 | PN ---
Progress Note - Progress Note Date of Service: 11/25/19 SOAP: Subjective: []Pt seen at bedside. He feels well without complaints. R toe nonpainful, redness of R leg has almost entirely resolved. Denies fever or chills. Confirms comfort with ambulation with fx boot. Objective: []Gen: NAD, nontoxic appearing RLE: Erythema almost entirely resolved. R great toe remains enlarged with dry fissured skin in lateral side but no open or draining lesions. Nontender to palpation. No pain with f/e MTP or ankle. Sensation decreased distally. Cap refill less than two seconds distally, DP2+. Calves supple and nontender Assessment: []R great toe fracture Plan: []WBAT in fracture boot Cont abx for cellulitis per medicine Ready for DC from ortho standpoint with outpt fu Dr Oshea 7-10 days Vital Signs Temp 98.4 F 11/25/19 07:20 Pulse 66 11/25/19 07:20 Resp 18 11/25/19 07:20 BP 135/80 11/25/19 07:20 Pulse Ox 98 11/25/19 07:20 Intake & Output 11/24/19 11/25/19 11/25/19 18:59 06:59 18:59 Intake Total 1970 4737 Output Total 2650 1450 Balance -680 3287 Intake: IV Fluids 281 20 NS (0.9%) 281 20 IVPB 109 217 ABX - ZOSYN 109 217 Oral 1580 4500 Output: Urine 2650 1450 Other: Estimated Void Medium # Bowel Movements 1 Estimated Stool Amount Large # Voids 1 Laboratory Last Values WBC 5.6 10^3/uL (3.5-10.8) 11/25/19 05:47 RBC 3.88 10^6 /uL (4.18-5.48) L 11/25/19 05:47 Hgb 12.3 g/dL (14.0-18.0) L 11/25/19 05:47 Hct 36 % (42-52) L 11/25/19 05:47 MCV 93 fL (80-94) 11/25/19 05:47 MCH 32 pg (27-31) H 11/25/19 05:47 MCHC 34 g/dL (31-36) 11/25/19 05:47 RDW 15 % (10-15) 11/25/19 05:47 Plt Count 248 10^3/uL (150-450) 11/25/19 05:47 MPV 8.0 fL (7.4-10.4) 11/25/19 05:47 Neut % (Auto) 63.8 % 11/25/19 05:47 Lymph % (Auto) 23.8 % 11/25/19 05:47 [place] % (Auto) 9.5 % 11/25/19 05:47 Eos % (Auto) 2.0 % 11/25/19 05:47 Baso % (Auto) 0.9 % 11/25/19 05:47 Absolute Neuts (auto) 3.6 10^3/ul (1.5-7.7) 11/25/19 05:47 Absolute Lymphs (auto) 1.3 10^3/ul (1.0-4.8) 11/25/19 05:47 Absolute Monos (auto) 0.5 10^3/ul (0-0.8) 11/25/19 05:47 Absolute Eos (auto) 0.1 10^3/ul (0-0.6) 11/25/19 05:47 Absolute Basos (auto) 0.1 10^3/ul (0-0.2) 11/25/19 05:47 Absolute Nucleated RBC 0.0 10^3/ul 11/25/19 05:47 Nucleated RBC % 0.0 11/25/19 05:47 Sodium 138 mmol/L (135-145) 11/25/19 05:47 Potassium 3.9 mmol/L (3.5-5.0) 11/25/19 05:47 Chloride 106 mmol/L (101-111) 11/25/19 05:47 Carbon Dioxide 25 mmol/L (22-32) 11/25/19 05:47 Anion Gap 7 mmol/L (2-11) 11/25/19 05:47 BUN 11 mg/dL (6-24) 11/25/19 05:47 Creatinine 1.07 mg/dL (0.67-1.17) 11/25/19 05:47 Est GFR ( Amer) 87.8 (>60) 11/25/19 05:47 Est GFR (Non-Af Amer) 72.6 (>60) 11/25/19 05:47 BUN/Creatinine Ratio 10.3 (8-20) 11/25/19 05:47 Glucose 93 mg/dL (70-100) 11/25/19 05:47 Lactic Acid 1.1 mmol/L (0.5-2.0) 11/24/19 03:56 Calcium 8.7 mg/dL (8.6-10.3) 11/25/19 05:47 Total Bilirubin 0.30 mg/dL (0.2-1.0) 11/23/19 17:15 AST 32 U/L (13-39) 11/23/19 17:15 ALT 16 U/L (7-52) 11/23/19 17:15 Alkaline Phosphatase 58 U/L (34-104) 11/23/19 17:15 C-Reactive Protein 2.28 mg/L (<8.01) 11/25/19 05:47 Total Protein 7.3 g/dL (6.4-8.9) 11/23/19 17:15 Albumin 4.7 g/dL (3.2-5.2) 11/23/19 17:15 Globulin 2.6 g/dL (2-4) 11/23/19 17:15 Albumin/Globulin Ratio 1.8 (1-3) 11/23/19 17:15
--- NOTE | 2019-11-25 19:32 | DS ---
DISCHARGE SUMMARY: DATE OF ADMISSION: 11/23/19 DATE OF DISCHARGE: 11/25/19 PRIMARY DIAGNOSES: 1. Right lower extremity cellulitis. 2. Alcohol use disorder. 3. Proximal phalanx fracture, first toe, right foot. HOSPITAL COURSE: A 53-year-old male with history of schizophrenia/ schizoaffective disorder with recent diagnosis for cellulitis from 11/12/19 to 11/13/19, came into the hospital with complaints of lower extremity erythema and warmth. The patient reports that he was on oral antibiotics as an outpatient, then started getting better, and then his leg got worse and came to the ER for evaluation. The patient also was in the ER the day prior after he drank 1.5 L of whiskey and his serum alcohol level was at 283. The patient reports that that was the only episode and usually he only drinks beer with a couple of airplane shots when he has the money. The patient was started on IV Zosyn with significant improvement of his lower extremity cellulitis and at time of discharge, his lower extremity looks significantly better. The erythema and warmth has improved, and the patient is being discharged on p.o. Keflex for 5 more days. The patient also had a foot deformity and x-ray was ordered to both rule out and evaluate for osteomyelitis and rule out fracture. This was done on . The patient was noted to have a minimally displaced fracture of the base of the proximal phalanx of the first digit. Orthopedic Surgery was consulted for further evaluation and the patient was seen by Tyesha Hermosillo, who recommended the patient to be in a fracture boot. This has been provided to the patient and the patient to follow up with Dr. Oshea as an outpatient in 7 to 10 days. It would be difficult to completely rule out osteomyelitis per discussion with Ortho given his clinical picture and symptoms; however, with his active fracture, an MRI would not be completely useful. The patient has also clinically improved significantly and usually has not followed up very closely. The patient has missed 9 of his [facility] appointments. The patient has been made one more [facility] appointment and the patient to follow up there for further outpatient management. The patient also to follow up with Orthopedic Surgery for his fracture and further evaluation with Dr. Oshea in 7 to 10 days. An appointment has been made for this as well. The patient to complete his antibiotic course with Keflex. Vitals and labs noted to be stable at time of discharge. LABS: WBC 5.6, hemoglobin 12.3, hematocrit 36, platelets noted to be 248. Sodium 138, potassium 3.9, chloride 106, CO2 of 25, BUN 11, creatinine 1.07. PHYSICAL EXAMINATION: Vitals: Temperature 98.4, pulse 66, respiratory rate 18 , blood pressure 135/80, oxygen saturation 98% on room air. HEENT: NC/AT. Heart: S1, S2 present. Regular at time of exam. Lungs: Clear to auscultation. Abdomen: Soft. Extremities: Noted to have no edema. Erythema in the right lower extremity improved. Neuro: Alert and oriented x3. MEDICATIONS: Medication lists at time of discharge: 1. Keflex 500 mg 4 times a day for 5 more days. 2. Ibuprofen as needed. 3. Invega IM monthly injections. It appears that the patient has not been compliant with his outpatient injection. CONDITION: Stable. DISPOSITION: Home. TIME SPENT: Total time spent on discharge is equal to 50 minutes. [id number]/[facility] #: [id number] GUILLERMO
== END 2019-11-25 10:50 | disposition home or self-care (01) | DRG 603 ==
LOC: ED 16:36 → MED 19:51 → SSU 23:26
PROVIDERS: ADMIT Internal Medicine; ATTEND Internal Medicine
DX: L03.115 Cellulitis of right lower limb (principal); F10.239 Alcohol dependence with withdrawal, unspecified; F20.9 Schizophrenia, unspecified; F32.9 Major depressive disorder, single episode, unspecified; S92.411A Displaced fracture of proximal phalanx of right great toe, initial encounter for closed fracture; W01.0XXA Fall on same level from slipping, tripping and stumbling without subsequent striking against object, initial encounter; Y92.9 Unspecified place or not applicable
CPT/HCPCS: 36415; 80048; 80053; 83605; 85025; 86140; 87040; 96365; 99284; A9270-GY; J1650; J2060; J2543

== ENCOUNTER 2019-12-02 05:09 | Emergency (ER) | payer MEDICARE, MEDICAID ==
[2019-12-02 06:28] LABS: ABS Basophils 0.1 10^3/ul (0-0.2); ABS Eosinophils 0.1 10^3/ul (0-0.6); ABS Lymphocytes 1.2 10^3/ul (1.0-4.8); ABS Monocytes 0.4 10^3/ul (0-0.8); ABS Neutrophils 2.6 10^3/ul (1.5-7.7); Eosinophil % 2.9 %; Hematocrit 38 % (42-52); Hemoglobin 12.8 g/dL (14.0-18.0); Lymphocyte % 27.1 %; Mean Corpuscular HGB Conc 34 g/dL (31-36); Mean Corpuscular Hemoglobin 31 pg (27-31); Mean Corpuscular Volume 92 fL (80-94); Mean Platelet Volume 7.5 fL (7.4-10.4); Nucleated Red Blood Cells % 0.1; Platelet Count 319 10^3/uL (150-450); Red Blood Count 4.14 10^6 /uL (4.18-5.48); Red Cell Distribution Width 15 % (10-15); White Blood Count 4.4 10^3/uL (3.5-10.8)
[2019-12-02 06:34] LABS: INR 0.93 (0.82-1.09)
[2019-12-02 06:43] LABS: Albumin 4.6 g/dL (3.2-5.2); Albumin/Globulin Ratio 1.6 (1-3); BUN/Creatinine Ratio 14.1 (8-20); Calcium 9.3 mg/dL (8.6-10.3); EGFR African American 114.5 (>60); EGFR Non-African American 94.7 (>60); Globulin 2.9 g/dL (2-4); Potassium 4.4 mmol/L (3.5-5.0); Total Bilirubin 0.3 mg/dL (0.2-1.0); Total Protein 7.5 g/dL (6.4-8.9)
--- NOTE | 2019-12-02 06:54 | ED ---
Lower Extremity - HPI Summary HPI Summary: Patient is a 53-year-old who presents emergency department for reevaluation of his right foot infection. Patient has been seen and admitted to the hospital for right lower leg infection numerous times in the last 1 month. Patient was most recently discharged from the hospital on November 26 with a prescription for Keflex. Patient also has a known fracture to his great toe. The patient states he stopped taking antibiotic days ago because he did not feel it was working. Patient concern for worsening infection because he noticed " skin " on his right great toe. Patient denies fever, chills, nausea, vomiting. Patient notes redness and swelling to calf region has improved. Symptoms are moderate in severity. No current modifying factors. - History of Current Complaint Chief Complaint: EDExtremityLower Stated Complaint: R FOOT PAIN PER EMS Time Seen by Provider: 12/02/19 05:44 Hx Obtained From: Patient Pain Intensity: 9 - Allergies/Home Medications Allergies/Adverse Reactions: Allergies Allergy/AdvReac Type Severity Reaction Status Date / Time fluphenazine [From Prolixin] Allergy Rash Verified 12/02/19 06:11 Home Medications: Home Medications Ibuprofen TAB* [Advil TAB*] 200 mg PO Q6H PRN 11/12/19 [History Confirmed ] Paliperidone SUSTENNA* [Invega Sustenna*] 156 mg IM MONTHLY 11/18/19 [History Confirmed 12/02/19] Cephalexin CAP* [Keflex CAP*] 500 mg PO QID #20 cap 11/25/19 [Rx Confirmed 12/02] PMH/Surg Hx/FS Hx/Imm Hx Previously Healthy: Yes Endocrine/Hematology History: Denies: Hx Anticoagulant Therapy, Hx Diabetes, Hx Thyroid Disease Cardiovascular History: Denies: Hx Hypertension Respiratory History: Denies: Hx Asthma, Hx Chronic Obstructive Pulmonary Disease (COPD) GI History: Denies: Hx Ulcer Musculoskeletal History: Reports: Hx Tendonitis - Left shoulder Sensory History: Denies: Hx Contacts or Glasses, Hx Legally Blind, Hx Deafness, Hx Hearing Aid Opthamlomology History: Denies: Hx Contacts or Glasses, Hx Legally Blind Psychiatric History: Reports: Hx Inpatient Treatment, Hx Community Mental Health Tx, Hx Schizophrenia, Hx Bipolar Disorder, Hx Substance Abuse - etoh Denies: Hx Anxiety, Hx Attention Deficit Hyperactivity Disorder, Hx Eating Disorder, Hx Depression, Hx Panic Disorder, Hx Post Traumatic Stress Disorder, Hx Suicide Attempt, Hx of Violent Episodes Against Others - Cancer History Hx Chemotherapy: No Hx Radiation Therapy: No - Surgical History Surgery Procedure, Year, and Place: tooth extractions X4. COLON POLYPS REMOVED Infectious Disease History: No Infectious Disease History: Reports: Hx Shingles Denies: Hx Hepatitis, Hx Human Immunodeficiency Virus (HIV), Hx of Known/ Suspected MRSA, Hx Tuberculosis, Hx Known/Suspected VRSA, Traveled Outside the [place] in Last 30 Days - Family History Known Family History: Negative: Cardiac Disease, Hypertension, Diabetes, Renal Disease, Respiratory Disease - Social History Occupation: Unemployed Lives: Alone Alcohol Use: Every other day Alcohol Amount: 4-12 beers 4 days a week/ hard alcohol Hx Substance Use: Yes Substance Use Type: Reports: Excessive Caffeine, Marijuana Substance Use Comment - Amount & Last Used: 11/23/19- marijuana Hx Tobacco Use: Yes Smoking Status (MU): Light Every Day Tobacco Smoker Type: Cigarettes Review of Systems Constitutional: Negative Negative: Fever, Chills Cardiovascular: Negative Respiratory: Negative Gastrointestinal: Negative Positive: Other - redness and swelling right foot Neurological/Mental Status: Negative All Other Systems Reviewed And Are Negative: Yes Physical Exam Triage Information Reviewed: Yes Vital Signs On Initial Exam: Initial Vitals Temp Pulse Resp BP Pulse Ox 97.9 F 75 18 160/93 99 12/02/19 05:16 12/02/19 05:16 12/02/19 05:16 12/02/19 05:16 12/02/19 05:16 Vital Signs Reviewed: Yes Appearance: Positive: Well-Appearing - Patient sitting on bed in no acute distress. Keeping notes in a notepad. Skin: Positive: Warm, Dry Head/Face: Positive: Normal Head/Face Inspection Eyes: Positive: Normal, EOMI Musculoskeletal: Positive: Other - Moderate erythema and edema to right foot extending to great toe. No open wounds or drainage. Erythema and edema to right calf region has significantly improved since last time I saw pt. Neurological: Positive: Normal, CN Intact II-III Psychiatric: Positive: Affect/Mood Appropriate Procedures - Sedation Patient Received Moderate/Deep Sedation with Procedure: No Diagnostics - Vital Signs Vital Signs Temp Pulse Resp BP Pulse Ox 12/02/19 05:16 97.9 F 75 18 160/93 99 - Laboratory Lab Results: Lab Results 12/02/19 12/02/1912/02/20 Range/Units 06:20 06:20 06:20 WBC 4.4 (3.5-10.8) 10^3/uL RBC 4.14 L (4.18-5.48) 10^6 /uL Hgb 12.8 L (14.0-18.0) g/dL Hct 38 L (42-52) % MCV 92 (80-94) fL MCH 31 (27-31) pg MCHC 34 (31-36) g/dL RDW 15 (10-15) % Plt Count 319 (150-450) 10^3/uL MPV 7.5 (7.4-10.4) fL Neut % (Auto) 59.1 % Lymph % (Auto) 27.1 % [place] % (Auto) 9.3 % Eos % (Auto) 2.9 % Baso % (Auto) 1.6 % Absolute Neuts (auto) 2.6 (1.5-7.7) 10^3/ul Absolute Lymphs (auto) 1.2 (1.0-4.8) 10^3/ul Absolute Monos (auto) 0.4 (0-0.8) 10^3/ul Absolute Eos (auto) 0.1 (0-0.6) 10^3/ul Absolute Basos (auto) 0.1 (0-0.2) 10^3/ul Absolute Nucleated RBC 0.0 10^3/ul Nucleated RBC % 0.1 INR (Anticoag Therapy) 0.93 (0.82-1.09) Sodium 137 (135-145) mmol/L Potassium 4.4 (3.5-5.0) mmol/L Chloride 103 (101-111) mmol/L Carbon Dioxide 27 (22-32) mmol/L Anion Gap 7 (2-11) mmol/L BUN 12 (6-24) mg/dL Creatinine 0.85 (0.67-1.17) mg/dL Est GFR ( Amer) 114.5 (>60) Est GFR (Non-Af Amer) 94.7 (>60) BUN/Creatinine Ratio 14.1 (8-20) Glucose 103 H (70-100) mg/dL Lactic Acid (0.5-2.0) mmol/L Calcium 9.3 (8.6-10.3) mg/dL Total Bilirubin 0.30 (0.2-1.0) mg/dL AST 17 (13-39) U/L ALT 12 (7-52) U/L Alkaline Phosphatase 54 (34-104) U/L Total Protein 7.5 (6.4-8.9) g/dL Albumin 4.6 (3.2-5.2) g/dL Globulin 2.9 (2-4) g/dL Albumin/Globulin Ratio 1.6 (1-3) Serum Alcohol Pending 12/02/19 Range/Units 06:20 WBC (3.5-10.8) 10^3/uL RBC (4.18-5.48) 10^6 /uL Hgb (14.0-18.0) g/dL Hct (42-52) % MCV (80-94) fL MCH (27-31) pg MCHC (31-36) g/dL RDW (10-15) % Plt Count (150-450) 10^3/uL MPV (7.4-10.4) fL Neut % (Auto) % Lymph % (Auto) % [place] % (Auto) % Eos % (Auto) % Baso % (Auto) % Absolute Neuts (auto) (1.5-7.7) 10^3/ul Absolute Lymphs (auto) (1.0-4.8) 10^3/ul Absolute Monos (auto) (0-0.8) 10^3/ul Absolute Eos (auto) (0-0.6) 10^3/ul Absolute Basos (auto) (0-0.2) 10^3/ul Absolute Nucleated RBC 10^3/ul Nucleated RBC % INR (Anticoag Therapy) (0.82-1.09) Sodium (135-145) mmol/L Potassium (3.5-5.0) mmol/L Chloride (101-111) mmol/L Carbon Dioxide (22-32) mmol/L Anion Gap (2-11) mmol/L BUN (6-24) mg/dL Creatinine (0.67-1.17) mg/dL Est GFR ( Amer) (>60) Est GFR (Non-Af Amer) (>60) BUN/Creatinine Ratio (8-20) Glucose (70-100) mg/dL Lactic Acid 0.5 (0.5-2.0) mmol/L Calcium (8.6-10.3) mg/dL Total Bilirubin (0.2-1.0) mg/dL AST (13-39) U/L ALT (7-52) U/L Alkaline Phosphatase (34-104) U/L Total Protein (6.4-8.9) g/dL Albumin (3.2-5.2) g/dL Globulin (2-4) g/dL Albumin/Globulin Ratio (1-3) Serum Alcohol Result Diagrams: 12/02/19 06:20 12/02/19 06:20 Lab Statement: Any lab studies that have been ordered have been reviewed, and results considered in the medical decision making process. Lower Extremity Course/Dx - Course Course Of Treatment: Patient presenting for recheck of right lower cellulitis. Patient states that pain, redness and swelling has persisted. Patient stopped taking his antibiotics. He is afebrile. No open wounds to right foot. Basic labs unremarkable. X-ray negative for signs of osteomyelitis are subcutaneous gas. Case discussed with orthopedics, Dr. Yost, who agrees with discharge at this time. Patient agreeable with discharge but states he does not want to take any more antibiotics. He has a prescription of Keflex at home and strongly advised him to take Keflex as directed. He was given a postop shoe for comfort since he states walking boot he was given in the hospital is uncomfortable and hard to put on. The patient states he will follow up with orthopedics this time and will call today to make an appointment. - Diagnoses Differential Diagnosis/HQI/PQRI: Positive: Cellulitis, Infection, Osteomyelitis Provider Diagnoses: Cellulitis, Toe fracture Discharge ED - Sign-Out/Discharge Documenting (check all that apply): Patient Departure - Discharge Plan Condition: Good Disposition: HOME Patient Education Materials: Toe Fracture (ED), Cellulitis (ED) Referrals: Elmo Oshea MD [Medical Doctor] - Additional Instructions: PLEASE CALL ORTHOPEDICS TODAY AND SCHEDULE AN APPOINTMENT Recommend continuing Keflex as directed Return to ER for fever, increased pain, swelling, redness or if concerned - Billing Disposition and Condition Condition: GOOD Disposition: Home
[2019-12-02 08:33] VITALS: BP 135/88
== END 2019-12-02 08:32 | disposition home or self-care (01) ==
LOC: ED 05:09
DX: L03.115 Cellulitis of right lower limb (principal); S92.411A Displaced fracture of proximal phalanx of right great toe, initial encounter for closed fracture; X58.XXXA Exposure to other specified factors, initial encounter; Y92.9 Unspecified place or not applicable; F20.9 Schizophrenia, unspecified; F31.9 Bipolar disorder, unspecified; F17.210 Nicotine dependence, cigarettes, uncomplicated; Z79.899 Other long term (current) drug therapy; Z88.8 Allergy status to other drugs, medicaments and biological substances
CPT/HCPCS: 36415; 80053; 80320; 83605; 85025; 85610; 87040; 99282; G0480

== ENCOUNTER 2019-12-06 18:48 | Emergency (ER) | payer MEDICARE, MEDICAID ==
--- NOTE | 2019-12-06 19:28 | ED ---
Lower Extremity - HPI Summary HPI Summary: Patient is a 53 y/o M [facility] of persistent erythema and edema of the BLE worse on the R despite numerous visits and admission to [facility] for RLE cellulitis. He was last discharged from inpatient stay on 11/26/2019 but stopped taking Keflex because he felt it wasnt working. He was seen in the ED on 12/02/2019 for R great toe fx with advisory for orthopedic follow up, but patient did not follow with them yet. He states his toe is feeling better today , and he has been wearing the boot on the RLE. He denies any fevers at home. Symptoms rated 4/10 in severity. PMHx: alcoholic pancreatitis, elevated LFTs, bipolar disorder. Current smoker, daily EtOH, marijuana use. Medications reviewed. Allergies noted. - History of Current Complaint Chief Complaint: EDExtremityLower Stated Complaint: RIGHT LEG PAIN PER EMS Time Seen by Provider: 12/06/19 19:10 Hx Obtained From: Patient Mechanism Of Injury: Other - cellulitis for 1+ month Onset/Duration: Weeks Severity Initially: Moderate Severity Currently: Moderate Pain Intensity: 4 Pain Scale Used: 0-10 Numeric Timing: Lasting Weeks Location: Other - BLE worst on R Associated Signs And Symptoms: Positive: Swelling, Redness. Negative: Fever Aggravating Factor(s): Other - abx noncompliance Alleviating Factor(s): Nothing - Allergies/Home Medications Allergies/Adverse Reactions: Allergies Allergy/AdvReac Type Severity Reaction Status Date / Time fluphenazine [From Prolixin] Allergy Mild Rash Verified 12/06/19 19:51 Home Medications: Home Medications Paliperidone SUSTENNA* [Invega Sustenna*] 156 mg IM MONTHLY 11/18/19 [History Confirmed 12/06/19] PMH/Surg Hx/FS Hx/Imm Hx Endocrine/Hematology History: Denies: Hx Anticoagulant Therapy, Hx Diabetes, Hx Thyroid Disease Cardiovascular History: Denies: Hx Hypertension Respiratory History: Denies: Hx Asthma, Hx Chronic Obstructive Pulmonary Disease (COPD) GI History: Denies: Hx Ulcer Musculoskeletal History: Reports: Hx Tendonitis - Left shoulder Sensory History: Denies: Hx Contacts or Glasses, Hx Legally Blind, Hx Deafness, Hx Hearing Aid Opthamlomology History: Denies: Hx Contacts or Glasses, Hx Legally Blind Psychiatric History: Reports: Hx Inpatient Treatment, Hx Community Mental Health Tx, Hx Schizophrenia, Hx Bipolar Disorder, Hx Substance Abuse - etoh Denies: Hx Anxiety, Hx Attention Deficit Hyperactivity Disorder, Hx Eating Disorder, Hx Depression, Hx Panic Disorder, Hx Post Traumatic Stress Disorder, Hx Suicide Attempt, Hx of Violent Episodes Against Others - Cancer History Hx Chemotherapy: No Hx Radiation Therapy: No - Surgical History Surgical History: Yes Surgery Procedure, Year, and Place: tooth extractions X4. COLON POLYPS REMOVED Infectious Disease History: No Infectious Disease History: Reports: Hx Shingles Denies: Hx Hepatitis, Hx Human Immunodeficiency Virus (HIV), Hx of Known/ Suspected MRSA, Hx Tuberculosis, Hx Known/Suspected VRSA, Traveled Outside the [place] in Last 30 Days - Family History Known Family History: Negative: Cardiac Disease, Hypertension, Diabetes, Renal Disease, Respiratory Disease - Social History Alcohol Use: Daily Alcohol Amount: 4-12 beers 4 days a week/ hard alcohol Hx Substance Use: Yes Substance Use Type: Reports: Excessive Caffeine, Marijuana Substance Use Comment - Amount & Last Used: 11/23/19- marijuana Hx Tobacco Use: Yes Smoking Status (MU): Light Every Day Tobacco Smoker Type: Cigarettes Review of Systems Negative: Fever Positive: Edema - BLE Positive: Other - erythema BLE All Other Systems Reviewed And Are Negative: Yes Physical Exam - Summary Physical Exam Summary: Constitutional: Well-developed, Well-nourished, Alert. (-) Distressed Skin: Warm, Dry,erythema BLE HENT: Normocephalic; Atraumatic Eyes: Conjunctiva normal Neck: Musculoskeletal ROM normal neck. (-) JVD, (-) Stridor, (-) Nuchal rigidity Cardio: Rhythm regular, rate normal, Heart sounds normal; Intact distal pulses; Radial pulses are 2+ and symmetric. (-) Murmur Pulmonary/Chest wall: Effort normal. (-) Respiratory distress, (-) Wheezes, (-) Rales Abd: Soft, (-) tenderness, (-) Distension, (-) Guarding, (-) Rebound Musculoskeletal: BLE erythema and edema R greater than L, Tenderness of first MTP and dorsum of the R foot. 2+ DP pulse Neuro: Alert, Oriented x3 Psych: Mood and affect Normal Triage Information Reviewed: Yes Vital Signs On Initial Exam: Initial Vitals Temp Pulse Resp BP Pulse Ox 100.4 F 92 16 149/97 97 12/06/19 18:50 12/06/19 18:50 12/06/19 18:50 12/06/19 18:50 12/06/19 18:50 Vital Signs Reviewed: Yes Procedures - Sedation Patient Received Moderate/Deep Sedation with Procedure: No Diagnostics - Vital Signs Vital Signs Temp Pulse Resp BP Pulse Ox 12/06/19 19:20 99.7 F 12/06/19 18:50 100.4 F 92 16 149/97 97 - Laboratory Result Diagrams: 12/06/19 19:26 12/06/19 19:26 Lab Statement: Any lab studies that have been ordered have been reviewed, and results considered in the medical decision making process. Re-Evaluation - Re-Evaluation First Eval Re-Evaluation Time: 08:10 Change: Improved - given motrin and sandwich. Patient soaking feet. Lower Extremity Course/Dx - Course Course Of Treatment: 53 y/o male w hx EtOH abuse, RLE cellulitis and R great toe fracture p/w foot pain. - VS: low grade fever, on oral temp 99.7. Labs w normal WBC, normal CRP. Lower suspicion for worsening cellulitis. When compared to prior visit in Nov swelling and redness appears improved. - already wearing hard sole shoe for comfort. Patient has not followed up w orthopedics likely as he was unable to call. Spoke w/ orthopedics who can see him tomorrow at 1 PM in office. Relayed importance of this to patient. - Diagnoses Provider Diagnoses: Right leg pain, Right foot pain - Physician Notifications Discussed Care Of Patient With: Denisha Mendoza - orthopedics Time Discussed With Above Provider: 20:10 Instructed by Provider To: Other - I discussed the patients case with Dr. Mendoza , who has set up an appointment for the patient tomorrow 12/07/2019 at 1300. Discharge ED - Sign-Out/Discharge Documenting (check all that apply): Patient Departure - Patient will be discharged home. - Discharge Plan Condition: Stable Disposition: HOME Patient Education Materials: Cellulitis (ED), Arthralgia (ED) Referrals: Denisha Mendoza MD [Medical Doctor] - 12/07/19 1:00 pm Care [facility] [Outside] Additional Instructions: You were seen in the emergency department for foot pain. Please go to the orthopedic office tomorrow at 1 PM, ask for Dr. Mendoza. Please follow up with your primary care doctor in the next 2-3 days and return to the emergency department for worsening or concerning symptoms. It was a pleasure taking care of you today. - Billing Disposition and Condition Condition: STABLE Disposition: Home - Attestation Statements Document Initiated by Brittani: Yes Documenting Scribe: Bindu Ferrell Provider For Whom Brittani is Documenting (Include Credential): Dr. Juan Carlos Villa MD Scribe Attestation: I, Bindu Ferrell, scribed for Dr. Juan Carlos Villa MD on 12/06/19 at 2018. Scribe Documentation Reviewed: Yes Provider Attestation: The documentation as recorded by the Bindu ledezma accurately reflects the service I personally performed and the decisions made by me, Dr. Juan Carlos Villa MD Status of Scribtabitha Document: Viewed
[2019-12-06 19:34] LABS: ABS Basophils 0.1 10^3/ul (0-0.2); ABS Lymphocytes 1.5 10^3/ul (1.0-4.8); ABS Monocytes 0.7 10^3/ul (0-0.8); ABS Neutrophils 4.7 10^3/ul (1.5-7.7); Eosinophil % 0.6 %; Hematocrit 34 % (42-52); Hemoglobin 11.4 g/dL (14.0-18.0); Lymphocyte % 21.1 %; Mean Corpuscular HGB Conc 34 g/dL (31-36); Mean Corpuscular Hemoglobin 31 pg (27-31); Mean Corpuscular Volume 91 fL (80-94); Mean Platelet Volume 7.2 fL (7.4-10.4); Platelet Count 275 10^3/uL (150-450); Red Blood Count 3.69 10^6 /uL (4.18-5.48); Red Cell Distribution Width 14 % (10-15); White Blood Count 6.9 10^3/uL (3.5-10.8)
[2019-12-06 19:51] LABS: Albumin 4.2 g/dL (3.2-5.2); Albumin/Globulin Ratio 1.8 (1-3); BUN/Creatinine Ratio 12.9 (8-20); C Reactive Protein 6.64 mg/L (<8.01); Calcium 8.9 mg/dL (8.6-10.3); EGFR African American 114.5 (>60); EGFR Non-African American 94.7 (>60); Globulin 2.4 g/dL (2-4); Potassium 3.6 mmol/L (3.5-5.0); Total Bilirubin 0.3 mg/dL (0.2-1.0); Total Protein 6.6 g/dL (6.4-8.9)
[2019-12-06] MEDS ORDERED: Ibuprofen TAB* 600 MG PO ONE ×2 (19:58→20:24)
[2019-12-06] MEDS ORDERED: Ibuprofen TAB* 600 MG ONE (20:25)
[2019-12-06 20:30] VITALS: BP 146/86
== END 2019-12-06 20:28 | disposition home or self-care (01) ==
LOC: ED 18:48
DX: M79.604 Pain in right leg (principal); M79.671 Pain in right foot; R60.0 Localized edema; R50.9 Fever, unspecified; Z88.8 Allergy status to other drugs, medicaments and biological substances; F17.210 Nicotine dependence, cigarettes, uncomplicated
CPT/HCPCS: 36415; 80053; 85025; 86140; 99282; A9270-GY

== ENCOUNTER 2019-12-09 23:13 | Emergency (ER) | payer MEDICARE, MEDICAID ==
[2019-12-09 23:25] VITALS: BP 147/94
--- NOTE | 2019-12-09 23:48 | ED ---
Lower Extremity - HPI Summary HPI Summary: Patient is a 54 y/o M presenting to [facility] with chief complaint of worsening BLE erythema and swelling worse on the right, initially onset three weeks ago. He has been seen in the ED multiple times for cellulitis with admissions and antibiotics at home, which the patient has not been compliant with because it is too many antibiotics. He last took antibiotics a week ago, but he has taken Motrin to some relief. Today, there is broken skin on the right great toe. The erythema and swelling in the RLE has grown as it extends from the toes to the thigh with swelling. The LLE is also swollen and red but only from the ankle to the mid-vincent. Pain is rated 5/10 in severity. PMHx: alcoholic pancreatitis, elevated LFTs, bipolar disorder. Current smoker, daily EtOH, daily marijuana use. Medications reviewed. Allergies noted. - History of Current Complaint Chief Complaint: EDExtremityLower Stated Complaint: LEG PAIN PER EMS Time Seen by Provider: 12/09/19 23:17 Hx Obtained From: Patient Mechanism Of Injury: Other - cellulitis for 3 weeks Onset of Pain: Days Onset/Duration: Still Present Severity Initially: Mild Severity Currently: Moderate Pain Intensity: 5 Pain Scale Used: 0-10 Numeric Timing: Constant Location: Other - BLE worst on R Character Of Pain: Aching Associated Signs And Symptoms: Positive: Swelling, Redness Aggravating Factor(s): Other - non medication compliant Alleviating Factor(s): Other - Motrin - Allergies/Home Medications Allergies/Adverse Reactions: Allergies Allergy/AdvReac Type Severity Reaction Status Date / Time fluphenazine [From Prolixin] Allergy Mild Rash Verified 12/10/19 06:11 Home Medications: Home Medications NK [No Home Medications Reported] 12/10/19 [History Confirmed 12/10/19] PMH/Surg Hx/FS Hx/Imm Hx Endocrine/Hematology History: Denies: Hx Anticoagulant Therapy, Hx Diabetes, Hx Thyroid Disease Cardiovascular History: Denies: Hx Hypertension Respiratory History: Denies: Hx Asthma, Hx Chronic Obstructive Pulmonary Disease (COPD) GI History: Denies: Hx Ulcer Musculoskeletal History: Reports: Hx Tendonitis - Left shoulder Sensory History: Denies: Hx Contacts or Glasses, Hx Legally Blind, Hx Deafness, Hx Hearing Aid Opthamlomology History: Denies: Hx Contacts or Glasses, Hx Legally Blind Psychiatric History: Reports: Hx Inpatient Treatment, Hx Community Mental Health Tx, Hx Schizophrenia, Hx Bipolar Disorder, Hx Substance Abuse - etoh Denies: Hx Anxiety, Hx Attention Deficit Hyperactivity Disorder, Hx Eating Disorder, Hx Depression, Hx Panic Disorder, Hx Post Traumatic Stress Disorder, Hx Suicide Attempt, Hx of Violent Episodes Against Others - Cancer History Hx Chemotherapy: No Hx Radiation Therapy: No - Surgical History Surgery Procedure, Year, and Place: tooth extractions X4. COLON POLYPS REMOVED Infectious Disease History: No Infectious Disease History: Reports: Hx Shingles Denies: Hx Hepatitis, Hx Human Immunodeficiency Virus (HIV), Hx of Known/ Suspected MRSA, Hx Tuberculosis, Hx Known/Suspected VRSA, Traveled Outside the [place] in Last 30 Days - Family History Known Family History: Negative: Cardiac Disease, Hypertension, Diabetes, Renal Disease, Respiratory Disease - Social History Alcohol Use: Daily Alcohol Amount: 4-12 beers 4 days a week/ hard alcohol Hx Substance Use: Yes Substance Use Type: Reports: Excessive Caffeine, Marijuana Substance Use Comment - Amount & Last Used: 11/23/19- marijuana Hx Tobacco Use: Yes Smoking Status (MU): Light Every Day Tobacco Smoker Type: Cigarettes - Additional Comments History Additional Comments: alcoholic pancreatitis, elevated LFTs, bipolar disorder Review of Systems - ROS Summary Review of Systems Summary: Home Medications Medication Instructions Recorded Confirmed Type Paliperidone SUSTENNA* [Invega 156 mg IM MONTHLY 11/18/19 12/06/19 History Sustenna*] Positive: Edema - BLE Positive: Other - erythema of BLE, broken skin on the right great toe All Other Systems Reviewed And Are Negative: Yes Physical Exam - Summary Physical Exam Summary: General: Unkempt. Well-developed, Well-nourished male. No acute distress. HEENT: Normocephalic, Atraumatic. Eyes: Conjuctiva normal, PERRL. Oropharynx: Clear, mucous membranes moist, (-) exudates. Neck: Soft, FROM, (-) lymphadenopathy, (-) thyromegaly, (-) JVD. Cardiovascular: Normal sinus rhythm, (-) murmur. Lungs: Clear to auscultation bilaterally (-) wheezes, (-) rales, (-) rhonchi. Abdomen: Soft, non-tender, non-distended, (-) organomegaly, normal bowel sounds. Back: (-) CVA tenderness Extremities: Erythema of the right lower leg from the toes up to the knee, Swelling up to the mid-thigh on the right, Less erythema on the left to the mid vincent, Good pulses bilaterally Skin: Warm, dry, (-) rash. Thickened scaly skin on the top of the right first metatarsal. Neuro: Alert and oriented x3, moves all extremities equally. No ataxia. No gait disturbance. No sensory deficit. Normal strength, normal sensation. Psychiatric: Mood normal, affect odd. Triage Information Reviewed: Yes Vital Signs On Initial Exam: Initial Vitals Temp Pulse Resp BP Pulse Ox 99.6 F 78 16 147/94 97 12/09/19 23:20 12/09/19 23:20 12/09/19 23:20 12/09/19 23:20 12/09/19 23:20 Vital Signs Reviewed: Yes Procedures - Sedation Patient Received Moderate/Deep Sedation with Procedure: No Diagnostics - Vital Signs Vital Signs Temp Pulse Resp BP Pulse Ox 12/09/19 23:20 99.6 F 78 16 147/94 97 - Laboratory Result Diagrams: 12/09/19 23:46 12/09/19 23:46 Lab Statement: Any lab studies that have been ordered have been reviewed, and results considered in the medical decision making process. Re-Evaluation - Re-Evaluation First Eval Re-Evaluation Time: 00:23 Comment: Patient has eloped. Lower Extremity Course/Dx - Course Course Of Treatment: 54-year-old male presents with pain and swelling of his lower legs. States he was recently in the hospital with cellulitis. His chart notes that he left AGAINST MEDICAL ADVICE. He is not taking by mouth antibiotics. Patient denies any vomiting. No fevers. He states he was initially improving. [place] that he had enough of the antibiotics and stopped taking them. Over the last couple days the swelling has increased as well as the redness. And pain in the lower extremities. Right greater than left. on physical exam the right lower leg has erythema and edema from the toes up to the knee. Warmth. Tenderness. Erythema on the left lower extremity goes up to the mid calf area. Lab work is ordered. Recommend IV for antibiotics. Patient became agitated. Unwilling to have an IV for antibiotics. States he doesn't need any further antibiotics. Patient ended up eloping before workup complete. Patient refuses antibiotics. - Diagnoses Provider Diagnoses: Cellulitis, Tobacco use Discharge ED - Sign-Out/Discharge Documenting (check all that apply): Patient Departure - elopement - Discharge Plan Condition: Stable Disposition: HOME Patient Education Materials: How to Stop Smoking (ED) Referrals: No Primary Care Phys,NOPCP [Primary Care Provider] - - Billing Disposition and Condition Condition: STABLE Disposition: Home - Attestation Statements Document Initiated by Scribe: Yes Documenting Scribe: Bindu Ferrell Provider For Whom Brittani is Documenting (Include Credential): Christel Caldwell MD Scribe Attestation: Binud Sheikh, scribed for Christel Caldwell MD on 12/15/19 at 0054. Scribe Documentation Reviewed: Yes Provider Attestation: The documentation as recorded by the Bindu ledezma accurately reflects the service I personally performed and the decisions made by me, Christel Caldwell MD Status of Scribe Document: Viewed
[2019-12-09] MEDS ORDERED: Acetaminophen TAB* 325 MG PO ONE (23:49)
[2019-12-09 23:59] LABS: ABS Basophils 0.1 10^3/ul (0-0.2); ABS Eosinophils 0.1 10^3/ul (0-0.6); ABS Lymphocytes 1.4 10^3/ul (1.0-4.8); ABS Monocytes 0.7 10^3/ul (0-0.8); ABS Neutrophils 4.6 10^3/ul (1.5-7.7); Eosinophil % 1.4 %; Hematocrit 34 % (42-52); Hemoglobin 11.4 g/dL (14.0-18.0); Lymphocyte % 20.9 %; Mean Corpuscular HGB Conc 34 g/dL (31-36); Mean Corpuscular Hemoglobin 31 pg (27-31); Mean Corpuscular Volume 91 fL (80-94); Mean Platelet Volume 7.3 fL (7.4-10.4); Platelet Count 272 10^3/uL (150-450); Red Blood Count 3.72 10^6 /uL (4.18-5.48); Red Cell Distribution Width 15 % (10-15); White Blood Count 6.8 10^3/uL (3.5-10.8)
[2019-12-10 00:15] LABS: Albumin 4.1 g/dL (3.2-5.2); Albumin/Globulin Ratio 1.5 (1-3); BUN/Creatinine Ratio 12.5 (8-20); C Reactive Protein 19.75 mg/L (<8.01); Calcium 8.6 mg/dL (8.6-10.3); EGFR African American 122.4 (>60); EGFR Non-African American 101.1 (>60); Globulin 2.7 g/dL (2-4); Potassium 3.5 mmol/L (3.5-5.0); Total Bilirubin 0.3 mg/dL (0.2-1.0); Total Protein 6.8 g/dL (6.4-8.9)
[2019-12-10 00:24] LABS: Urine Appearance Clear; Urine Bilirubin Negative (Negative); Urine Blood Negative (Negative); Urine Color Straw; Urine Glucose Negative (Negative); Urine Ketones Negative (Negative); Urine Nitrite Negative (Negative); Urine Protein Negative (Negative); Urine Specific Gravity 1.003 (1.010-1.030); Urine Urobilinogen Negative (Negative)
== END 2019-12-10 00:25 | disposition home or self-care (01) ==
LOC: ED 23:13
DX: L03.90 Cellulitis, unspecified (principal); F17.210 Nicotine dependence, cigarettes, uncomplicated; F31.9 Bipolar disorder, unspecified; K86.0 Alcohol-induced chronic pancreatitis; R94.5 Abnormal results of liver function studies; Z88.7 Allergy status to serum and vaccine; Z86.61 Personal history of infections of the central nervous system
CPT/HCPCS: 36415; 80053; 81003; 83605; 85025; 86140; 87040; 99282; A9270-GY

== ENCOUNTER 2019-12-10 05:39 | Emergency (ER) | payer MEDICARE, MEDICAID ==
[2019-12-10] MEDS ORDERED: Aspirin 81 mg CHEW TAB* 81 MG TAB.CHEW PO ONE (05:48)
[2019-12-10 05:49] VITALS: BP 160/76
--- NOTE | 2019-12-10 06:30 | ED ---
HPI Chest Pain - HPI Summary HPI Summary: Patient is a 54 y/o M arriving via ambulance to [facility] with chief complaint of chest pain onset around 0500. He states that he felt four shots of dull pain rated 2/10 to the chest over 30 seconds that resolved occurring with exertion walking up a hill. He denies SOB. He had a stress test many years ago after seeing a baseball glove stuffer. He was here earlier today for cellulitis of both legs. Current smoker, daily EtOH, marijuana use. LEVEL 5 CAVEAT - Patient declines further assessment. - History of Current Complaint Chief Complaint: EDExtremityLower Time Seen by Provider: 12/10/19 05:42 Hx Obtained From: Patient Hx From Patient Unobtainable Due To: Other - Patient declines further assessment. Time of Onset: 05:00 Timing: Lasting Seconds Current Severity: Mild Pain Intensity: 2 Pain Scale Used: 0-10 Numeric Chest Pain Location: Diffuse Chest Pain Radiates: No Character: Dull/Aching Aggravating Factor(s): Exertion Alleviating Factor(s): Spontaneous Resolution Associated Signs and Symptoms: Positive: Chest Pain. Negative: Shortness of Breath - Additional Pertinent History Primary Care Physician: [id number] - Allergy/Home Medications Allergies/Adverse Reactions: Allergies Allergy/AdvReac Type Severity Reaction Status Date / Time fluphenazine [From Prolixin] Allergy Mild Rash Verified 12/10/19 06:11 Home Medications: Home Medications NK [No Home Medications Reported] 12/10/19 [History Confirmed 12/10/19] PMH/Surg Hx/FS Hx/Imm Hx Endocrine/Hematology History: Denies: Hx Anticoagulant Therapy, Hx Diabetes, Hx Thyroid Disease Cardiovascular History: Denies: Hx Hypertension Respiratory History: Denies: Hx Asthma, Hx Chronic Obstructive Pulmonary Disease (COPD) GI History: Denies: Hx Ulcer Musculoskeletal History: Reports: Hx Tendonitis - Left shoulder Sensory History: Denies: Hx Contacts or Glasses, Hx Legally Blind, Hx Deafness, Hx Hearing Aid Opthamlomology History: Denies: Hx Contacts or Glasses, Hx Legally Blind Psychiatric History: Reports: Hx Inpatient Treatment, Hx Community Mental Health Tx, Hx Schizophrenia, Hx Bipolar Disorder, Hx Substance Abuse - etoh Denies: Hx Anxiety, Hx Attention Deficit Hyperactivity Disorder, Hx Eating Disorder, Hx Depression, Hx Panic Disorder, Hx Post Traumatic Stress Disorder, Hx Suicide Attempt, Hx of Violent Episodes Against Others - Cancer History Hx Chemotherapy: No Hx Radiation Therapy: No - Surgical History Surgery Procedure, Year, and Place: tooth extractions X4. COLON POLYPS REMOVED Infectious Disease History: No Infectious Disease History: Reports: Hx Shingles Denies: Hx Hepatitis, Hx Human Immunodeficiency Virus (HIV), Hx of Known/ Suspected MRSA, Hx Tuberculosis, Hx Known/Suspected VRSA, Traveled Outside the [place] in Last 30 Days - Family History Known Family History: Negative: Cardiac Disease, Hypertension, Diabetes, Renal Disease, Respiratory Disease - Social History Alcohol Use: Daily Alcohol Amount: 4-12 beers 4 days a week/ hard alcohol Hx Substance Use: Yes Substance Use Type: Reports: Excessive Caffeine, Marijuana Substance Use Comment - Amount & Last Used: 11/23/19- marijuana Hx Tobacco Use: Yes Smoking Status (MU): Light Every Day Tobacco Smoker Type: Cigarettes Review of Systems - ROS Summary Review of Systems Summary: Home Medications Medication Instructions Recorded Confirmed Type NK [No Home Medications Reported] 12/10/19 12/10/19 History Positive: Chest Pain Negative: Shortness Of Breath All Other Systems Reviewed And Are Negative: No - Comments Additional Review of Systems Comments: LEVEL 5 CAVEAT - Patient declines further assessment. Physical Exam - Summary Physical Exam Summary: Patient declines exam. Triage Information Reviewed: Yes Vital Signs On Initial Exam: Initial Vitals Temp Pulse Resp BP Pulse Ox 99.8 F 90 16 160/76 98 12/10/19 05:42 12/10/19 05:42 12/10/19 05:42 12/10/19 05:42 12/10/19 05:42 Vital Signs Reviewed: Yes Completion Of Physical Exam Limited Due To: Level 5 - Patient declines further assessment. Procedures - Sedation Patient Received Moderate/Deep Sedation with Procedure: No Diagnostics - Vital Signs Vital Signs Temp Pulse Resp BP Pulse Ox 12/10/19 05:51 89 24 98 12/10/19 05:45 92 23 160/76 98 12/10/19 05:42 99.8 F 90 16 160/76 98 - Laboratory Lab Statement: Any lab studies that have been ordered have been reviewed, and results considered in the medical decision making process. - Radiology CXR Radiology Interpretation Completed By: ED Physician Summary of Radiographic Findings: No infiltrate. No pleural effusion. ED physician has reviewed and interpreted this imaging scan. Pending official read. - EKG 0540 Cardiac Rate: NL - 87 BPM EKG Rhythm: Sinus Rhythm Summary of EKG Findings: EKG at 0540 reveals normal sinus rhythm with rate of 87 BPM, no acute changes, no ischemic changes. This EKG was reviewed and interpreted by Dr. Caldwell. Re-Evaluation - Re-Evaluation First Eval Re-Evaluation Time: 06:17 Comment: Patient refuses antibiotics for his legs. Second Eval Re-Evaluation Time: 06:28 Comment: Patient eloping as he does not want further treatment despite advised admission for necessary care. Chest Pain Course/Dx - Course Course Of Treatment: 54-year-old male presents with chest pain and leg pain. Patient recently eloped from this emergency room. Returns with chest pain. States he was short of breath when walking up a hill. Patient is a very poor historian at this time, vague. Refuses to answer multiple questions. Patient became agitated during history. I strongly recommended admission and IV antibiotics for his lower extremity cellulitis. Patient adamantly refused. Patient insisted I leave the room and eloped. Refusing all further care. - Diagnoses Provider Diagnoses: Chest pain, Leg pain Discharge ED - Sign-Out/Discharge Documenting (check all that apply): Patient Departure - elopement - Discharge Plan Condition: Stable Disposition: ELOPEMENT Referrals: No Primary Care Phys,NOPCP [Primary Care Provider] - - Billing Disposition and Condition Condition: STABLE Disposition: Elopement - Attestation Statements Document Initiated by Brittani: Yes Documenting Scribe: Bindu Ferrell Provider For Whom Brittani is Documenting (Include Credential): Christel Caldwell MD Scribe Attestation: IBindu, scribed for Christel Caldwell MD on 12/15/19 at 0058. Scribe Documentation Reviewed: Yes Provider Attestation: The documentation as recorded by the Bindu ledezma accurately reflects the service I personally performed and the decisions made by me, Christel Caldwell MD Status of Scribe Document: Viewed
== END 2019-12-10 06:28 | disposition left against medical advice (07) ==
LOC: ED 05:39
DX: R07.89 Other chest pain (principal); M79.605 Pain in left leg; M79.604 Pain in right leg; L03.116 Cellulitis of left lower limb; L03.115 Cellulitis of right lower limb; F17.210 Nicotine dependence, cigarettes, uncomplicated
CPT/HCPCS: 71045; 93005; 99283; A9270-GY

== ENCOUNTER 2021-11-08 10:08 | Inpatient (IN) ==
[2021-11-08 10:57] LABS: ABS Eosinophils 0.1 10^3/ul (0-0.6); ABS Lymphocytes 0.9 10^3/ul (1.0-4.8); ABS Monocytes 0.6 10^3/ul (0-0.8); ABS Neutrophils 5.8 10^3/ul (1.5-7.7); Eosinophil % 0.7 %; Hematocrit 40 % (42-52); Hemoglobin 12.7 g/dL (14.0-18.0); Lymphocyte % 12.5 %; Mean Corpuscular HGB Conc 32 g/dL (31-36); Mean Corpuscular Hemoglobin 27 pg (27-31); Mean Corpuscular Volume 84 fL (80-94); Mean Platelet Volume 7.8 fL (7.4-10.4); Platelet Count 452 10^3/uL (150-450); Red Blood Count 4.69 10^6 /uL (4.18-5.48); Red Cell Distribution Width 17 % (10-15); White Blood Count 7.5 10^3/uL (3.5-10.8)
[2021-11-08 11:11] LABS: Rapid COVID-19 Molecular Undetected (Undetected)
[2021-11-08] MEDS ORDERED: Vancomycin 1,500 MG in NS 0.9% 250 ml 250 ML IVPB ONE (11:18)
[2021-11-08] MEDS ORDERED: Piperacillin/Tazobac ADVAN 3.375 GM in NS 0.9% 100 ml BAG 100 ML IV ONE (11:18)
[2021-11-08 11:20] LABS: ALT 15 U/L (7-52); Albumin 4.4 g/dL (3.2-5.2); Albumin/Globulin Ratio 1.5 (1-3); Alkaline Phosphatase 56 U/L (35-149); Blood Urea Nitrogen 15 mg/dL (6-24); C Reactive Protein 13.66 mg/L (<8.01); CO2 Carbon Dioxide 28 mmol/L (22-32); Calcium 9.5 mg/dL (8.6-10.3); Chloride 100 mmol/L (101-111); Glucose 95 mg/dL (70-100); Sodium 135 mmol/L (135-145); Total Protein 7.4 g/dL (6.4-8.9); eGFR CKD-EPI 98.9 (>60)
[2021-11-08] MEDS ORDERED: Al Hydrox/Mg Hydrox/Simet LIQ 30 ML UDC PO PRN (11:28)
[2021-11-08 11:43] LABS: TSH Ultra Thyroid Stim Horm 1.48 mcIU/mL (0.34-5.60)
[2021-11-08 11:59] LABS: Acetaminophen < 15 mcg/mL; Alcohol, S < 13 mg/dL (<13)
[2021-11-08] MEDS ORDERED: NS 0.9% 250 ml 250 ML ONE (12:00)
[2021-11-08 12:22] LABS: Salicylate < 2.50 mg/dL (<30)
[2021-11-08 13:03] LABS: Erythrocyte Sed Rate 31 mm/Hr (0-19)
[2021-11-08 13:05] LABS: Urine Appearance Clear; Urine Bilirubin Negative (Negative); Urine Blood Negative (Negative); Urine Color Yellow; Urine Glucose Negative (Negative); Urine Ketones 1+ (Negative); Urine Nitrite Negative (Negative); Urine Protein Negative (Negative); Urine Specific Gravity 1.016 (1.002-1.030); Urine Urobilinogen Negative (Negative)
[2021-11-08 13:11] LABS: Urine Bacteria Absent (Absent); Urine Benzodiazepine Screen None Detected (None Detect); Urine Cannabinoids Screen Presumptive Positive (None Detect); Urine Opiates Screen None Detected (None Detect); Urine Red Blood Cell Trace(0-2/hpf) (Absent); Urine White Blood Cell 1+(6-10/hpf) (Absent)
[2021-11-08 13:33] LABS: AST 23 U/L (13-39); Anion Gap 7 mmol/L (2-11); Potassium 4.3 mmol/L (3.5-5.0)
[2021-11-08] MEDS ORDERED: Paliperidone SUSTENNA 234 MG/1.5 ML IM ONE (16:00)
[2021-11-08] MEDS: Nicotine PATCH 21 MG/24 HR PATCH TRANSDERM SCH (17:45)
[2021-11-09] MEDS: Nicotine PATCH 21 MG/24 HR PATCH TRANSDERM SCH (10:02)
[2021-11-10] MEDS: Nicotine PATCH 21 MG/24 HR PATCH TRANSDERM SCH (07:33)
[2021-11-11] MEDS: Nicotine GUM 4MG FRUIT FLAVOR PO PRN (01:16)
[2021-11-11] MEDS: Nicotine PATCH 21 MG/24 HR PATCH TRANSDERM SCH (08:35)
[2021-11-12] MEDS: Nicotine PATCH 21 MG/24 HR PATCH TRANSDERM SCH (07:38)
[2021-11-12] MEDS: Nicotine GUM 4MG FRUIT FLAVOR PO PRN (07:45)
[2021-11-13] MEDS: Nicotine PATCH 21 MG/24 HR PATCH TRANSDERM SCH (12:00)
[2021-11-14] MEDS: Nicotine PATCH 21 MG/24 HR PATCH TRANSDERM SCH (10:11)
[2021-11-15] MEDS: Nicotine PATCH 21 MG/24 HR PATCH TRANSDERM SCH (13:39)
[2021-11-15] MEDS: Nicotine GUM 4MG FRUIT FLAVOR PO PRN (16:39)
[2021-11-16] MEDS: Nicotine PATCH 21 MG/24 HR PATCH TRANSDERM SCH (07:20)
[2021-11-17] MEDS: Nicotine PATCH 21 MG/24 HR PATCH TRANSDERM SCH (09:09)
[2021-11-18] MEDS: Nicotine PATCH 21 MG/24 HR PATCH TRANSDERM SCH (07:23)
[2021-11-19] MEDS: Nicotine PATCH 21 MG/24 HR PATCH TRANSDERM SCH (10:04)
[2021-11-19] MEDS ORDERED: Flu vaccine *QUAD* 2021-22* 0.5 ML SYRINGE IM ONE (13:00)
[2021-11-20] MEDS: Nicotine PATCH 21 MG/24 HR PATCH TRANSDERM SCH (10:05)
[2021-11-21] MEDS: Nicotine PATCH 21 MG/24 HR PATCH TRANSDERM SCH (09:10)
[2021-11-21] MEDS ORDERED: Lidocaine 1% MPF 5 ML VIAL INJ ONE (14:21)
[2021-11-21] MEDS ORDERED: cefTRIAXone VIAL 500 MG VIAL IM PRN (14:21)
[2021-11-21] MEDS ORDERED: Paliperidone SUSTENNA 234 MG/1.5 ML IM ONE (15:00)
[2021-11-21] MEDS ORDERED: Lidocaine 1% MPF 5 ML VIAL INJ PRN (18:00)
[2021-11-22] MEDS: Nicotine PATCH 21 MG/24 HR PATCH TRANSDERM SCH ×2 (09:09→15:52)
[2021-11-23] MEDS: Nicotine PATCH 21 MG/24 HR PATCH TRANSDERM SCH (13:22)
[2021-11-24] MEDS ORDERED: Paliperidone SUSTENNA 156 MG/1 ML IM ONE (09:00)
[2021-11-24] MEDS: Nicotine PATCH 21 MG/24 HR PATCH TRANSDERM SCH (09:37)
[2021-11-24] MEDS: Nicotine GUM 4MG FRUIT FLAVOR PO PRN ×2 (16:45→21:12)
[2021-11-25] MEDS: Nicotine GUM 4MG FRUIT FLAVOR PO PRN ×2 (09:23→17:34)
[2021-11-25] MEDS: Nicotine PATCH 21 MG/24 HR PATCH TRANSDERM SCH (09:27)
[2021-11-26] MEDS: Nicotine GUM 4MG FRUIT FLAVOR PO PRN ×4 (02:30→21:03)
[2021-11-26] MEDS: Nicotine PATCH 21 MG/24 HR PATCH TRANSDERM SCH (08:28)
[2021-11-27] MEDS: Nicotine GUM 4MG FRUIT FLAVOR PO PRN ×4 (01:38→21:21)
[2021-11-27] MEDS: Nicotine PATCH 21 MG/24 HR PATCH TRANSDERM SCH (10:10)
[2021-11-27] MEDS ORDERED: COVID-19 VACCINE, MRNA(MODERNA) BOOSTER/PF 50 MCG/0.25 ML IM ONE (10:13)
[2021-11-28] MEDS: Nicotine PATCH 21 MG/24 HR PATCH TRANSDERM SCH (08:53)
[2021-11-28] MEDS: Nicotine GUM 4MG FRUIT FLAVOR PO PRN ×2 (09:33→18:01)
[2021-11-29] MEDS: Nicotine PATCH 21 MG/24 HR PATCH TRANSDERM SCH (09:00)
[2021-11-29] MEDS: Nicotine GUM 4MG FRUIT FLAVOR PO PRN ×3 (09:42→20:33)
[2021-11-30] MEDS: Nicotine GUM 4MG FRUIT FLAVOR PO PRN (05:35)
[2021-11-30 08:28] VITALS: BP 121/69
[2021-11-30] MEDS ORDERED: Nicotine PATCH 21 MG/24 HR PATCH TRANSDERM SCH (09:00)
== END 2021-11-30 08:30 | DRG 885 ==
LOC: ED 10:08 → EDHOLD 11:43 → BSU 17:43
PROVIDERS: ADMIT Psychiatry & Neurology Psychiatry; ATTEND Psychiatry & Neurology Psychiatry

== ENCOUNTER 2022-11-02 13:07 | Inpatient (IN) ==
[2022-11-02] MEDS ORDERED: Lactated Ringers 1000 ml BAG 1,000 ML IV ONE ×3 (13:11→14:26)
[2022-11-02 14:00] LABS: ABS Lymphocytes 0.2 10^3/ul (1.0-4.8); ABS Monocytes 0.4 10^3/ul (0-0.8); ABS Neutrophils 12.5 10^3/ul (1.5-7.7); Hematocrit 39 % (42-52); Hemoglobin 12.7 g/dL (14.0-18.0); Lymphocyte % 1.4 %; Mean Corpuscular HGB Conc 33 g/dL (31-36); Mean Corpuscular Hemoglobin 28 pg (27-31); Mean Corpuscular Volume 85 fL (80-94); Mean Platelet Volume 8.6 fL (7.4-10.4); Platelet Count 144 10^3/uL (150-450); Red Blood Count 4.54 10^6 /uL (4.18-5.48); Red Cell Distribution Width 14 % (10-15); White Blood Count 13.1 10^3/uL (3.5-10.8)
[2022-11-02 14:40] LABS: ALT 26 U/L (7-52); AST 26 U/L (13-39); Albumin 3.8 g/dL (3.2-5.2); Albumin/Globulin Ratio 1.9 (1-3); Alcohol, S < 13 mg/dL (<13); Alkaline Phosphatase 38 U/L (35-149); Anion Gap 14 mmol/L (2-11); Blood Urea Nitrogen 20 mg/dL (6-24); C Reactive Protein 206.33 mg/L (<8.01); CO2 Carbon Dioxide 16 mmol/L (22-32); Calcium 8.5 mg/dL (8.6-10.3); Chloride 99 mmol/L (101-111); Creatinine, Serum 1.81 mg/dL (0.67-1.17); Glucose 140 mg/dL (70-100); Potassium 3.8 mmol/L (3.5-5.0); Sodium 129 mmol/L (135-145); Total Protein 5.8 g/dL (6.4-8.9); eGFR CKD-EPI 43.6 (>60)
[2022-11-02] MEDS ORDERED: Piperacillin/Tazobac ADVAN 3.375 GM in NS 0.9% 100 ml BAG 100 ML IV ONE (16:45)
[2022-11-02 16:51] LABS: Urine Appearance Clear; Urine Bilirubin Negative (Negative); Urine Blood 1+ (Negative); Urine Color Yellow; Urine Glucose Negative (Negative); Urine Ketones Negative (Negative); Urine Nitrite Negative (Negative); Urine Protein Negative (Negative); Urine Specific Gravity 1.004 (1.002-1.030); Urine Urobilinogen Negative (Negative)
[2022-11-02 17:15] LABS: Urine Benzodiazepine Screen None Detected (None Detect); Urine Cannabinoids Screen None Detected (None Detect); Urine Opiates Screen None Detected (None Detect)
[2022-11-02 17:20] LABS: Urine Bacteria 1+ (Absent); Urine Red Blood Cell Trace(0-2/hpf) (Absent); Urine Renal Epithelial Cells Present (Absent); Urine White Blood Cell Trace(0-5/hpf) (Absent)
[2022-11-02 17:46] LABS: ALT 24 U/L (7-52); AST 25 U/L (13-39); Albumin 3.5 g/dL (3.2-5.2); Albumin/Globulin Ratio 1.9 (1-3); Alkaline Phosphatase 38 U/L (35-149); Anion Gap 9 mmol/L (2-11); Blood Urea Nitrogen 19 mg/dL (6-24); CO2 Carbon Dioxide 21 mmol/L (22-32); Calcium 8.4 mg/dL (8.6-10.3); Chloride 102 mmol/L (101-111); Creatinine, Serum 1.56 mg/dL (0.67-1.17); Globulin 1.8 g/dL (2-4); Glucose 123 mg/dL (70-100); Potassium 3.8 mmol/L (3.5-5.0); Sodium 132 mmol/L (135-145); Total Protein 5.3 g/dL (6.4-8.9); eGFR CKD-EPI 52.1 (>60)
[2022-11-02] MEDS ORDERED: Vancomycin 1,500 MG in NS 0.9% 250 ml 250 ML IVPB ONE (17:50)
[2022-11-02] MEDS ORDERED: NS 0.9% 1000 ml BAG 1,000 ML IV SCH (18:00)
[2022-11-02] MEDS ORDERED: Vancomycin per Pharmacy 1 EA NOTE FOLLOW UP SCH (18:00)
[2022-11-02 19:43] LABS: Total Iron Binding Capacity 288 mcg/dL (250-450); Transferrin 206 mg/dL (203-362)
[2022-11-02 19:53] LABS: % Iron Saturation 7 % (15-55); Iron < 20 ug/dL (50-212); Unsaturated Iron Binding 268 ug/dL
[2022-11-02 20:04] LABS: Folate 18.73 ng/mL (5.90-24.80)
[2022-11-02 20:09] LABS: Vitamin B12 226 pg/mL (180-914)
[2022-11-02] MEDS: cefTRIAXone 2 gm/50 mL D5W 2 GM/50 ML BAG IV SCH (21:05)
[2022-11-02] MEDS: Heparin 5000 UNITS/ML 1 mL VIAL SUBCUT SCH (21:20)
[2022-11-03 05:33] LABS: ABS Lymphocytes 0.7 10^3/ul (1.0-4.8); ABS Monocytes 0.5 10^3/ul (0-0.8); ABS Neutrophils 6.3 10^3/ul (1.5-7.7); Eosinophil % 0.4 %; Hematocrit 36 % (42-52); Hemoglobin 11.8 g/dL (14.0-18.0); Lymphocyte % 8.9 %; Mean Corpuscular HGB Conc 33 g/dL (31-36); Mean Corpuscular Hemoglobin 28 pg (27-31); Mean Corpuscular Volume 85 fL (80-94); Mean Platelet Volume 8.3 fL (7.4-10.4); Platelet Count 124 10^3/uL (150-450); Red Cell Distribution Width 14 % (10-15); White Blood Count 7.5 10^3/uL (3.5-10.8)
[2022-11-03] MEDS: Vancomycin 1000 MG in NS 0.9% 250 ML IVPB SCH ×2 (05:56→17:06)
[2022-11-03] MEDS: Heparin 5000 UNITS/ML 1 mL VIAL SUBCUT SCH (06:04)
[2022-11-03 06:10] LABS: Albumin 3.4 g/dL (3.2-5.2); Albumin/Globulin Ratio 1.8 (1-3); Calcium 8.3 mg/dL (8.6-10.3); Creatinine, Serum 1.1 mg/dL (0.67-1.17); Globulin 1.9 g/dL (2-4); Potassium 3.6 mmol/L (3.5-5.0); Total Bilirubin 0.6 mg/dL (0.2-1.0); Total Protein 5.3 g/dL (6.4-8.9); eGFR CKD-EPI 79.3 (>60)
[2022-11-03] MEDS: DULoxetine DR 60 mg CAP PO SCH (08:14)
[2022-11-03] MEDS ORDERED: Potassium Chlor 20 meq TAB.ER PO ONE (09:27)
[2022-11-03 10:06] LABS: Lithium 0.59 mmol/L (0.6-1.2)
[2022-11-03] MEDS: Enoxaparin 40 MG/0.4 ML SYR SUBCUT SCH (17:06)
[2022-11-03] MEDS: cefTRIAXone 2 gm/50 mL D5W 2 GM/50 ML BAG IV SCH (21:15)
[2022-11-04] MEDS ORDERED: Vancomycin Trough Check NOTE FOLLOW UP ONE (05:30)
[2022-11-04 06:39] LABS: C Reactive Protein 122.69 mg/L (<8.01); Calcium 8.1 mg/dL (8.6-10.3); Creatinine, Serum 0.88 mg/dL (0.67-1.17); Magnesium 1.8 mg/dL (1.9-2.7); eGFR CKD-EPI 101.5 (>60)
[2022-11-04] MEDS: Vancomycin 1000 MG in NS 0.9% 250 ML IVPB SCH (07:25)
[2022-11-04] MEDS: DULoxetine DR 60 mg CAP PO SCH (07:26)
[2022-11-04] MEDS ORDERED: Magnesium Hydroxide LIQ 30 ML UDC PO PRN (07:48)
[2022-11-04] MEDS ORDERED: Senna TAB 8.6 mg TAB PO PRN (07:48)
[2022-11-04] MEDS ORDERED: Polyethylene Glycol 3350 17 GM PACKET PO PRN (07:48)
[2022-11-04] MEDS ORDERED: Magnesium Sulfate 2 gm BAG 2 GM/50 ML BAG IVPB ONE (09:00)
[2022-11-04] MEDS: Magnesium Hydroxide LIQ 30 ML UDC PO SCH ×2 (10:44→21:30)
[2022-11-04] MEDS ORDERED: Vancomycin 1,250 MG in NS 0.9% 250 ml 250 ML IVPB SCH (14:00)
[2022-11-04] MEDS: Enoxaparin 40 MG/0.4 ML SYR SUBCUT SCH (17:32)
[2022-11-05 06:28] LABS: ABS Eosinophils 0.2 10^3/ul (0-0.6); ABS Lymphocytes 1.7 10^3/ul (1.0-4.8); ABS Monocytes 0.5 10^3/ul (0-0.8); ABS Neutrophils 3.1 10^3/ul (1.5-7.7); Eosinophil % 3.2 %; Hematocrit 35 % (42-52); Hemoglobin 11.5 g/dL (14.0-18.0); Lymphocyte % 30.7 %; Mean Corpuscular HGB Conc 33 g/dL (31-36); Mean Corpuscular Hemoglobin 28 pg (27-31); Mean Corpuscular Volume 85 fL (80-94); Mean Platelet Volume 7.9 fL (7.4-10.4); Platelet Count 139 10^3/uL (150-450); Red Blood Count 4.11 10^6 /uL (4.18-5.48); Red Cell Distribution Width 14 % (10-15); White Blood Count 5.6 10^3/uL (3.5-10.8)
[2022-11-05 06:59] LABS: Calcium 8.4 mg/dL (8.6-10.3); Creatinine, Serum 0.9 mg/dL (0.67-1.17); Magnesium 1.8 mg/dL (1.9-2.7); Potassium 4.1 mmol/L (3.5-5.0); eGFR CKD-EPI 100.9 (>60)
[2022-11-05] MEDS ORDERED: Magnesium Sulfate 2 gm BAG 2 GM/50 ML BAG IVPB ONE (07:28)
[2022-11-05] MEDS: DULoxetine DR 60 mg CAP PO SCH (09:40)
[2022-11-05] MEDS: Magnesium Hydroxide LIQ 30 ML UDC PO SCH (09:41)
[2022-11-05 10:53] LABS: Ferritin 77.9 ng/mL (24-336)
[2022-11-05 12:24] VITALS: BP 122/72
[2022-11-05] MEDS ORDERED: Vancomycin Trough Check NOTE FOLLOW UP ONE (13:30)
== END 2022-11-05 15:15 | disposition home or self-care (01) | DRG 602 ==
LOC: ED 13:07 → SUATTDRO 17:34 → EDHOLD 17:34 → MEDTELE 19:53
PROVIDERS: ADMIT Internal Medicine; ATTEND Internal Medicine

== ENCOUNTER 2023-03-30 07:54 | Inpatient (IN) ==
[2023-03-30] MEDS ORDERED: Lorazepam PYXIS KEY PRN ×3 (08:01→16:52)
[2023-03-30] MEDS ORDERED: LORazepam 2 mg VIAL 1 ml IV PUSH ONE ×3 (08:01→16:53)
[2023-03-30 08:53] LABS: ABS Eosinophils 0.1 10^3/uL (0.0-0.5); ABS Lymphocytes 0.5 10^3/uL (1.0-4.8); ABS Monocytes 0.3 10^3/uL (0.0-1.1); ABS Neutrophils 13.5 10^3/uL (1.5-7.6); ABS Nucleated RBC 0.01 10^3/ul; Eosinophil % 0.4 %; Hematocrit 39.3 % (38-53); Hemoglobin 13.1 g/dL (13.2-16.3); Lymphocyte % 3.8 %; Mean Corpuscular Hemoglobin 29.1 pg (27-33); Mean Corpuscular Hgb Conc 33.2 g/dL (31-36); Mean Corpuscular Volume 87.6 fL (80-97); Mean Platelet Volume 8.4 fL (7.5-11.2); Platelet Count 225 10^3/uL (150-450); Red Blood Count 4.48 10^6/uL (4.06-5.63); Red Cell Distribution Width 13.9 % (12-17); White Blood Count 14.4 10^3/uL (3.6-10.2)
[2023-03-30 09:12] LABS: ALT 11 U/L (7-52); AST 11 U/L (13-39); Albumin/Globulin Ratio 1.5 (1-3); Alkaline Phosphatase 40 U/L (35-149); Anion Gap 10 mmol/L (2-16); Blood Urea Nitrogen 15 mg/dL (6-24); CO2 Carbon Dioxide 20 mmol/L (22-32); Calcium 8.8 mg/dL (8.6-10.3); Chloride 102 mmol/L (101-111); Creatinine, Serum 1.24 mg/dL (0.67-1.17); Globulin 2.6 g/dL (2-4); Glucose 126 mg/dL (70-100); Potassium 3.6 mmol/L (3.5-5.0); Sodium 132 mmol/L (135-145); Total Protein 6.6 g/dL (6.4-8.9); eGFR CKD-EPI 68.2 (>60)
[2023-03-30] MEDS ORDERED: NS 0.9% 1000 ml BAG 1,000 ML IV ONE ×2 (09:13→12:59)
[2023-03-30 09:17] LABS: High Sens Troponin Baseline 5 pg/mL (<20)
[2023-03-30 09:28] LABS: Lithium 0.85 mmol/L (0.6-1.2)
[2023-03-30 10:51] LABS: High Sensitivity Troponin 1 Hr 10 pg/mL (<20)
[2023-03-30 13:16] LABS: Acetaminophen < 15 mcg/mL; Alcohol, S < 13 mg/dL (<13)
[2023-03-30] MEDS ORDERED: Vancomycin 1,000 MG in NS 0.9% 250 ml 250 ML IVPB ONE (13:43)
[2023-03-30] MEDS ORDERED: Piperacillin/Tazobac ADVAN 3.375 GM in NS 0.9% 100 ml BAG 100 ML IV ONE (13:44)
[2023-03-30] MEDS: NS 0.9% 1000 ml BAG 1,000 ML IV SCH ×2 (14:13→18:31)
[2023-03-30 15:42] LABS: C Reactive Protein 39.55 mg/L (<8.01); Creatine Kinase 22 U/L (10-223)
[2023-03-30] MEDS ORDERED: Vancomycin per Pharmacy 1 EA NOTE FOLLOW UP SCH (16:00)
[2023-03-30] MEDS ORDERED: Thiamine 100 MG/ML 2 ml VIAL 100 MG, Folic Acid IV 1 MG, Multiple Vitamin IV ADULT 10 M... IV ONE (16:51)
[2023-03-30 16:55] LABS: Erythrocyte Sed Rate 24 mm/Hr (0-19)
[2023-03-30] MEDS: Multivitamins/Minerals TAB PO SCH (18:15)
[2023-03-30] MEDS: Cefepime 2 GM in Dextrose 2 GM/50 ML BAG IV SCH (18:16)
[2023-03-30 19:28] LABS: Calcium 7.8 mg/dL (8.6-10.3); Creatinine, Serum 1.32 mg/dL (0.67-1.17); Potassium 3.7 mmol/L (3.5-5.0); eGFR CKD-EPI 63.3 (>60)
[2023-03-30 19:54] LABS: TSH Ultra Thyroid Stim Horm 1.08 mcIU/mL (0.34-5.60)
[2023-03-31] MEDS: Nicotine PATCH 21 MG/24 HR PATCH TRANSDERM SCH ×2 (00:04→08:39)
[2023-03-31] MEDS: LORazepam 2 mg VIAL 1 ml IV PUSH SCH ×2 (00:24→02:33)
[2023-03-31] MEDS: Vancomycin 1,250 MG in NS 0.9% 250 ml 250 ML IVPB SCH ×2 (00:33→12:15)
[2023-03-31] MEDS: Cefepime 2 GM in Dextrose 2 GM/50 ML BAG IV SCH ×2 (05:05→16:50)
[2023-03-31 06:32] LABS: ABS Lymphocytes 0.7 10^3/uL (1.0-4.8); ABS Monocytes 0.6 10^3/uL (0.0-1.1); ABS Neutrophils 10.3 10^3/uL (1.5-7.6); ABS Nucleated RBC 0.01 10^3/ul; Eosinophil % 0.1 %; Hematocrit 32.8 % (38-53); Lymphocyte % 5.7 %; Mean Corpuscular Hgb Conc 33.5 g/dL (31-36); Mean Corpuscular Volume 86.8 fL (80-97); Mean Platelet Volume 8.7 fL (7.5-11.2); Platelet Count 154 10^3/uL (150-450); Red Blood Count 3.78 10^6/uL (4.06-5.63); Red Cell Distribution Width 14.1 % (12-17); White Blood Count 11.6 10^3/uL (3.6-10.2)
[2023-03-31 06:54] LABS: Albumin 3.2 g/dL (3.2-5.2); Albumin/Globulin Ratio 1.5 (1-3); Calcium 7.8 mg/dL (8.6-10.3); Creatinine, Serum 1.17 mg/dL (0.67-1.17); Globulin 2.1 g/dL (2-4); Potassium 3.6 mmol/L (3.5-5.0); Total Bilirubin 0.7 mg/dL (0.2-1.0); Total Protein 5.3 g/dL (6.4-8.9); eGFR CKD-EPI 73.2 (>60)
[2023-03-31] MEDS: Multivitamins/Minerals TAB PO SCH (08:38)
[2023-04-01] MEDS: Vancomycin 1,250 MG in NS 0.9% 250 ml 250 ML IVPB SCH ×2 (00:40→13:21)
[2023-04-01] MEDS: Cefepime 2 GM in Dextrose 2 GM/50 ML BAG IV SCH (05:09)
[2023-04-01 06:15] LABS: ABS Basophils 0.1 10^3/uL (0.0-0.1); ABS Eosinophils 0.2 10^3/uL (0.0-0.5); ABS Monocytes 0.7 10^3/uL (0.0-1.1); ABS Neutrophils 5.9 10^3/uL (1.5-7.6); Eosinophil % 2.5 %; Hematocrit 32.1 % (38-53); Lymphocyte % 13.3 %; Mean Corpuscular Hgb Conc 34.2 g/dL (31-36); Mean Corpuscular Volume 87.6 fL (80-97); Mean Platelet Volume 8.8 fL (7.5-11.2); Platelet Count 141 10^3/uL (150-450); Red Blood Count 3.66 10^6/uL (4.06-5.63); Red Cell Distribution Width 14.1 % (12-17); White Blood Count 7.8 10^3/uL (3.6-10.2)
[2023-04-01 06:36] LABS: C Reactive Protein 126.01 mg/L (<8.01); Calcium 8.3 mg/dL (8.6-10.3); Creatinine, Serum 0.84 mg/dL (0.67-1.17); Potassium 3.4 mmol/L (3.5-5.0); eGFR CKD-EPI 102.3 (>60)
[2023-04-01] MEDS: Multivitamins/Minerals TAB PO SCH (08:29)
[2023-04-01] MEDS: Nicotine PATCH 21 MG/24 HR PATCH TRANSDERM SCH (08:29)
[2023-04-01] MEDS ORDERED: Potassium Chlor 20 meq TAB.ER PO ONE (08:35)
[2023-04-01] MEDS ORDERED: Vancomycin Trough Check NOTE FOLLOW UP ONE (11:30)
[2023-04-01 12:31] LABS: Creatinine, Serum 0.84 mg/dL (0.67-1.17); eGFR CKD-EPI 102.3 (>60)
[2023-04-01 12:41] LABS: Vancomycin Trough 9.4 mcg/mL
[2023-04-01] MEDS: Vancomycin 1,500 MG in NS 0.9% 250 ml 250 ML IVPB SCH (23:42)
[2023-04-02] MEDS: Nicotine PATCH 21 MG/24 HR PATCH TRANSDERM SCH (08:38)
[2023-04-02] MEDS: Multivitamins/Minerals TAB PO SCH (09:27)
[2023-04-02] MEDS ORDERED: fentaNYL 100 mcg/2 ml 50 MCG/ML VIAL IV PRN (12:16)
[2023-04-02] MEDS ORDERED: Ondansetron 4 mg VIAL 2 MG/ML 2 ml VIAL IV PRN (12:16)
[2023-04-02] MEDS ORDERED: Naloxone 0.4 mg VIAL 0.4 mg/ml 1 ml VIAL IV PRN (12:16)
[2023-04-02] MEDS ORDERED: oxyCODONE/Acetamin 5/325 mg TAB PO PRN (12:16)
[2023-04-02] MEDS: Vancomycin 1,500 MG in NS 0.9% 250 ml 250 ML IVPB SCH (12:30)
[2023-04-02] MEDS ORDERED: Propofol 10 MG/ML 20 ML BTL ONE (12:31)
[2023-04-02] MEDS ORDERED: Lidocaine 2% PF 5 ML VIAL ONE (12:31)
[2023-04-02] MEDS ORDERED: fentaNYL 100 mcg/2 ml 50 MCG/ML VIAL ONE (12:34)
[2023-04-02] MEDS ORDERED: Midazolam 2 mg/2 ml VIAL 1 mg/ml 2 ml VIAL (2 mg) ONE (12:35)
[2023-04-02] MEDS ORDERED: Bupivacaine 0.5% SDV PF 30ML VIAL ONE (12:51)
[2023-04-02] MEDS ORDERED: Ondansetron 4 mg VIAL 2 MG/ML 2 ml VIAL ONE (13:27)
[2023-04-02] MEDS ORDERED: NS 0.9% IVPB ONE (14:00)
[2023-04-02] MEDS ORDERED: VANCOMYCIN IVPB ONE (14:00)
[2023-04-02] MEDS: cefTRIAXone 2 gm/50 mL D5W 2 GM/50 ML BAG IV SCH (15:21)
[2023-04-03 06:04] LABS: ABS Eosinophils 0.2 10^3/uL (0.0-0.5); ABS Lymphocytes 1.9 10^3/uL (1.0-4.8); ABS Monocytes 0.6 10^3/uL (0.0-1.1); ABS Neutrophils 3.4 10^3/uL (1.5-7.6); ABS Nucleated RBC 0.01 10^3/ul; Eosinophil % 3.9 %; Hematocrit 34.8 % (38-53); Hemoglobin 11.7 g/dL (13.2-16.3); Lymphocyte % 30.6 %; Mean Corpuscular Hemoglobin 28.7 pg (27-33); Mean Corpuscular Hgb Conc 33.5 g/dL (31-36); Mean Corpuscular Volume 85.7 fL (80-97); Mean Platelet Volume 8.3 fL (7.5-11.2); Nucleated Red Blood Cells % 0.1 /100 WBC (0.0-0.4); Platelet Count 208 10^3/uL (150-450); Red Blood Count 4.07 10^6/uL (4.06-5.63); White Blood Count 6.2 10^3/uL (3.6-10.2)
[2023-04-03 06:17] LABS: Calcium 8.4 mg/dL (8.6-10.3); Creatinine, Serum 0.9 mg/dL (0.67-1.17); Magnesium 1.8 mg/dL (1.9-2.7); Potassium 3.4 mmol/L (3.5-5.0); eGFR CKD-EPI 100.2 (>60)
[2023-04-03] MEDS ORDERED: Potassium Chlor 20 meq TAB.ER PO ONE (07:31)
[2023-04-03] MEDS: Multivitamins/Minerals TAB PO SCH (09:26)
[2023-04-03] MEDS: Nicotine PATCH 21 MG/24 HR PATCH TRANSDERM SCH (09:29)
[2023-04-03 09:35] LABS: C Reactive Protein 35.43 mg/L (<8.01)
[2023-04-03] MEDS ORDERED: Vancomycin Trough Check NOTE FOLLOW UP ONE (11:30)
[2023-04-03 12:30] LABS: Creatinine, Serum 0.77 mg/dL (0.67-1.17); eGFR CKD-EPI 105.1 (>60)
[2023-04-03 12:37] LABS: Vancomycin Trough 10.6 mcg/mL
[2023-04-03] MEDS: Vancomycin 1,500 MG in NS 0.9% 250 ml 250 ML IVPB SCH ×3 (13:31→23:25)
[2023-04-03] MEDS: Enoxaparin 40 MG/0.4 ML SYR SUBCUT SCH (13:34)
[2023-04-03] MEDS: cefTRIAXone 2 gm/50 mL D5W 2 GM/50 ML BAG IV SCH (16:15)
[2023-04-04 06:14] LABS: ABS Basophils 0.1 10^3/uL (0.0-0.1); ABS Eosinophils 0.3 10^3/uL (0.0-0.5); ABS Lymphocytes 2.1 10^3/uL (1.0-4.8); ABS Monocytes 0.6 10^3/uL (0.0-1.1); ABS Neutrophils 3.9 10^3/uL (1.5-7.6); ABS Nucleated RBC 0.01 10^3/ul; Eosinophil % 4.3 %; Hematocrit 35.8 % (38-53); Hemoglobin 11.8 g/dL (13.2-16.3); Lymphocyte % 30.2 %; Mean Corpuscular Hemoglobin 28.1 pg (27-33); Mean Corpuscular Volume 85.2 fL (80-97); Nucleated Red Blood Cells % 0.1 /100 WBC (0.0-0.4); Platelet Count 253 10^3/uL (150-450); White Blood Count 6.9 10^3/uL (3.6-10.2)
[2023-04-04 06:26] LABS: Calcium 8.4 mg/dL (8.6-10.3); Creatinine, Serum 0.73 mg/dL (0.67-1.17); Potassium 3.6 mmol/L (3.5-5.0); eGFR CKD-EPI 106.8 (>60)
[2023-04-04] MEDS: Nicotine PATCH 21 MG/24 HR PATCH TRANSDERM SCH (08:30)
[2023-04-04] MEDS: Multivitamins/Minerals TAB PO SCH (08:31)
[2023-04-04] MEDS: Vancomycin 1,500 MG in NS 0.9% 250 ml 250 ML IVPB SCH ×2 (12:54→23:41)
[2023-04-04] MEDS: Enoxaparin 40 MG/0.4 ML SYR SUBCUT SCH (12:54)
[2023-04-04] MEDS: cefTRIAXone 2 gm/50 mL D5W 2 GM/50 ML BAG IV SCH (16:15)
[2023-04-05 05:31] LABS: ABS Basophils 0.1 10^3/uL (0.0-0.1); ABS Eosinophils 0.3 10^3/uL (0.0-0.5); ABS Lymphocytes 2.2 10^3/uL (1.0-4.8); ABS Monocytes 0.6 10^3/uL (0.0-1.1); Hematocrit 36.1 % (38-53); Hemoglobin 12.3 g/dL (13.2-16.3); Lymphocyte % 26.6 %; Mean Corpuscular Hemoglobin 29.4 pg (27-33); Mean Corpuscular Volume 86.4 fL (80-97); Mean Platelet Volume 7.5 fL (7.5-11.2); Platelet Count 291 10^3/uL (150-450); Red Blood Count 4.18 10^6/uL (4.06-5.63); White Blood Count 8.3 10^3/uL (3.6-10.2)
[2023-04-05 05:45] LABS: Calcium 8.5 mg/dL (8.6-10.3); Creatinine, Serum 0.93 mg/dL (0.67-1.17); Potassium 3.7 mmol/L (3.5-5.0); eGFR CKD-EPI 96.4 (>60)
[2023-04-05] MEDS ORDERED: DULoxetine DR 60 mg CAP PO SCH (10:00)
[2023-04-05] MEDS: Nicotine PATCH 21 MG/24 HR PATCH TRANSDERM SCH (10:26)
[2023-04-05] MEDS: Multivitamins/Minerals TAB PO SCH (10:26)
[2023-04-05 10:37] VITALS: BP 120/82
[2023-04-05] MEDS: Enoxaparin 40 MG/0.4 ML SYR SUBCUT SCH (12:45)
[2023-04-05] MEDS: Vancomycin 1,500 MG in NS 0.9% 250 ml 250 ML IVPB SCH (12:46)
[2023-04-08] MEDS ORDERED: Vancomycin Trough Check NOTE FOLLOW UP ONE (11:30)
== END 2023-04-05 14:26 | disposition home or self-care (01) | DRG 872 ==
LOC: EDHOLD 07:54 → ED 07:54 → SUATTDRO 14:28 → MEDTELE 16:02 → SSU 04-05 02:29
PROVIDERS: ADMIT Internal Medicine; ATTEND Internal Medicine

== ENCOUNTER 2023-12-08 02:20 | Inpatient (IN) ==
[2023-12-08] MEDS ORDERED: Haloperidol 5 mg/ml SDV IV/IM 5 MG/ML AMP ONE (02:32)
[2023-12-08] MEDS ORDERED: LORazepam 2 mg VIAL 1 ml ONE (02:32)
[2023-12-08] MEDS: Haloperidol 5 mg/ml SDV IV/IM 5 MG/ML AMP IM ONE ×2 (02:45→08:31)
[2023-12-08] MEDS: LORazepam 2 mg VIAL 1 ml IM ONE ×2 (02:45→08:32)
[2023-12-08 03:45] LABS: ABS Basophils 0.1 10^3/uL (0.0-0.1); ABS Lymphocytes 1.3 10^3/uL (1.0-4.8); ABS Monocytes 0.8 10^3/uL (0.0-1.1); ABS Neutrophils 9.2 10^3/uL (1.5-7.6); Eosinophil % 0.4 %; Hematocrit 36.4 % (38-53); Hemoglobin 12.1 g/dL (13.2-16.3); Lymphocyte % 11.2 %; Mean Corpuscular Hemoglobin 27.7 pg (27-33); Mean Corpuscular Hgb Conc 33.3 g/dL (31-36); Mean Corpuscular Volume 83.4 fL (80-97); Mean Platelet Volume 8.1 fL (7.5-11.2); Platelet Count 280 10^3/uL (150-450); Red Blood Count 4.36 10^6/uL (4.06-5.63); Red Cell Distribution Width 15.8 % (12-17); White Blood Count 11.5 10^3/uL (3.6-10.2)
[2023-12-08 04:38] LABS: ALT 17 U/L (7-52); AST 20 U/L (13-39); Acetaminophen < 15 mcg/mL; Albumin 4.1 g/dL (3.2-5.2); Alcohol, S 36 mg/dL (<13); Alkaline Phosphatase 47 U/L (35-149); Anion Gap 12 mmol/L (2-16); Blood Urea Nitrogen 12 mg/dL (6-24); CO2 Carbon Dioxide 21 mmol/L (22-32); Calcium 8.6 mg/dL (8.6-10.3); Chloride 102 mmol/L (101-111); Creatinine, Serum 1.03 mg/dL (0.67-1.17); Globulin 2.1 g/dL (2-4); Glucose 96 mg/dL (70-100); Salicylate < 2.50 mg/dL (<30); Sodium 135 mmol/L (135-145); Total Bilirubin 0.5 mg/dL (0.2-1.0); Total Protein 6.2 g/dL (6.4-8.9); eGFR CKD-EPI 84.7 (>60)
[2023-12-08 04:51] LABS: TSH Ultra Thyroid Stim Horm 1.23 mcIU/mL (0.34-5.60)
[2023-12-08 06:36] LABS: Urine Appearance Clear; Urine Bilirubin Negative (Negative); Urine Blood Negative (Negative); Urine Color Colorless; Urine Glucose Negative (Negative); Urine Ketones Negative (Negative); Urine Nitrite Negative (Negative); Urine Protein Negative (Negative); Urine Specific Gravity 1.004 (1.002-1.030); Urine Urobilinogen Negative (Negative)
[2023-12-08 06:45] LABS: Urine Benzodiazepine Screen None Detected (None Detect); Urine Cannabinoids Screen Presumptive Positive (None Detect); Urine Opiates Screen None Detected (None Detect)
[2023-12-08] MEDS ORDERED: Lorazepam PYXIS KEY PRN (08:19)
[2023-12-08] MEDS: Lithium Carbonate ER 450mg TAB PO SCH (19:54)
[2023-12-09] MEDS: Cholecalciferol (VIT D3) 1,000 unit TAB PO SCH (07:57)
[2023-12-09 08:05] LABS: HDL Cholesterol 35.7 mg/dL
[2023-12-12] MEDS: Nicotine PATCH 21 MG/24 HR PATCH ONE (08:35)
[2023-12-13] MEDS: Nicotine PATCH 21 MG/24 HR PATCH TRANSDERM SCH (13:50)
[2023-12-16] MEDS: Lithium Carbonate ER 450mg TAB PO SCH (20:25)
[2023-12-18] MEDS: Lithium Carb ER 300 mg TAB(NF) PO SCH (20:11)
[2023-12-19 08:36] VITALS: BP 115/78
== END 2023-12-19 11:30 | disposition home or self-care (01) | DRG 885 ==
LOC: ED 02:20 → EDHOLD 07:57 → BSU 08:26
PROVIDERS: ADMIT Student in an Organized Health Care Education/Training Program; ATTEND Psychiatry & Neurology Psychiatry